=== PATIENT | female | born 1945 | race Caucasian/White ===

== ENCOUNTER 2017-12-21 06:11 | Day surgery (SDC) | payer OTHER ==
--- NOTE | 2017-12-20 13:36 | EKG ---
Test Date: 2017-12-20 Test Time: 13:29:10 Content Checker: KADI MEASUREMENT RESULTS: Intervals: Rate: 75 WI: 180 QRSD: 102 QT: 408 QTc: 455 [place]: P: 49 WI: 180 QRS: 39 T: 109 INTERPRETIVE STATEMENTS: Normal sinus rhythm Left ventricular hypertrophy with repolarization abnormality Abnormal ECG Compared to ECG 07/13/2017 03:46:46 No significant changes Electronically Signed On 12-20-17 13:36:19 CDT by Raúl Gu
[2017-12-20 14:25] LABS: Absolute Lymphocytes (CBC) 2.3 K/uL (0.7-4.9); Absolute Monocytes 0.3 K/uL (0.1-1.3); Absolute Neutrophil 7.6 K/uL (1.8-8.0); Basophils % 0.9 % (0-1.3); Eosinophils % 0.6 % (0-4.4); Hematocrit 43.3 % (36.0-45.0); MCH 31.6 pg (27.0-35.0); MCV 95.2 fL (80-100); MPV 10.3 fL (7.6-11.3); Monocytes % 3.1 % (3.3-12.3); RBC Red Blood Cell Count 4.55 M/uL (3.86-4.86)
--- NOTE | 2017-12-20 14:26 | RAD REPORT ---
EXAM DESCRIPTION: Claudine Martines (2 Views)12/20/2017 1:43 pm CLINICAL HISTORY: Hypertension/coronary artery disease COMPARISON: June 2017 FINDINGS: The lungs appear clear of acute infiltrate. The heart is borderline enlarged IMPRESSION: No acute abnormalities displayed
[2017-12-20 14:36] LABS: Protime INR 0.98
[2017-12-20 14:49] LABS: Potassium 4.1 mEq/L (3.6-5.0)
[2017-12-21] MEDS ORDERED: NA CHLORIDE 0.9% 500 ML ONE (06:35)
[2017-12-21] MEDS ORDERED: HEPA 1000U/500MLS 1,000 UNIT/500 ML BAG IV ONE (06:57)
[2017-12-21] MEDS ORDERED: LIDOCAINE 1% 20 ML MDV ONE (06:57)
[2017-12-21] MEDS ORDERED: MIDAZOLAM HCL 2 MG/2 ML INJ ONE ×2 (07:32→07:38)
[2017-12-21] MEDS ORDERED: FENTANYL CITR 100 MCG/2 ML ONE (07:32)
[2017-12-21] MEDS ORDERED: GUAIFENESIN/DM 5 ML UCUP PO ONE (08:15)
[2017-12-21 09:59] VITALS: O2SAT 94
[2017-12-21 10:00] VITALS: BP 130/62; TEMP 97.6
--- NOTE | 2017-12-21 20:18 | OP ---
Surgeon: Timothy Bob MD Indication: Ms. Gillian Dallas is a 72-year-old woman with documented abdominal aortic aneurysm status post endograft, new diagnosis of the left renal artery stenosis, uncontrolled hypertension, brought i nto the cathode ray tube salvage processor as an outpatient for abdominal angiogram with runoff for possible intervention in th e renal arteries. Description Of Procedure: A 6-Japanese sheath was introduced in the right common femoral artery succes sfully. Angiogram there showed 70% stenosis in the common iliac artery and femoral artery. StarClos e was used to close the case. Abdominal angiogram with runoff with the pigtail showed a patent endog raft, however, the endograft actually was placed across both renal arteries. The patient was noted t o have a small renal artery on the right side. On the left side, she had about an 80% stenosis. Tho se stents are covered stents and there is no access with the wire to the left renal. The patient shakila erated the procedure well. There were no complications. Blood Loss: 5 cc. Total conscious sedation was 30 minutes. Plan: Plan is for medical therapy. She will follow up with me in the office in 2 weeks. Continue h er same medications at home. CONTRERAS/ANGELICA Voice ID: [id number] Report ID: [id number]
== END 2017-12-21 10:12 | disposition home or self-care (01) ==
LOC: CCL 06:11
DX: I70.1 Atherosclerosis of renal artery (principal); I70.201 Unspecified atherosclerosis of native arteries of extremities, right leg; I71.4 Abdominal aortic aneurysm, without rupture; I65.23 Occlusion and stenosis of bilateral carotid arteries; I25.110 Atherosclerotic heart disease of native coronary artery with unstable angina pectoris; E78.6 Lipoprotein deficiency; I12.9 Hypertensive chronic kidney disease with stage 1 through stage 4 chronic kidney disease, or unspecified chronic kidney disease; N18.2 Chronic kidney disease, stage 2 (mild); F17.210 Nicotine dependence, cigarettes, uncomplicated; E78.5 Hyperlipidemia, unspecified; Z98.61 Coronary angioplasty status; Z82.49 Family history of ischemic heart disease and other diseases of the circulatory system
CPT/HCPCS: 36200; 36415; 71046; 75630; 80048; 82962; 85025; 85610; 85730; 93005; C1893; J2250 ×2; J3010; 36252

== ENCOUNTER 2018-01-13 17:06 | Emergency (ER) | payer OTHER ==
--- NOTE | 2018-01-13 18:07 | ER ---
Nurse's Notes [facility] Name: Gillian Dallas Age: 72 yrs Sex: Female : 1945 Arrival Date: 01/13/2018 Time: 17:11 Bed 25 Private MD: Diagnosis: Pneumonia due to other specified bacteria Presentation: 01/13 17:14 Presenting complaint: Patient states: Congestion, cough, fatigue, low grade fever. la1 Transition of care: patient was not received from another setting of care. Onset of symptoms was January 13, 2018. Initial Sepsis Screen: Does the patient meet any 2 criteria? No. Patient's initial sepsis screen is negative. Does the patient have a suspected source of infection? No. Patient's initial sepsis screen is negative. Care prior to arrival: None. 17:14 Method Of Arrival: Ambulatory la1 17:14 Acuity: SHAWN 3 la1 Historical: - Allergies: 17:14 Biaxin; la1 17:14 Ceclor; la1 17:14 Codeine; la1 17:14 Erythromycin; la1 17:14 Macrobid; la1 17:14 PENICILLINS; la1 17:14 Sulfa (Sulfonamide Antibiotics); la1 17:14 Talwin; la1 - PMHx: 17:14 CAD; GERD; High Cholesterol; Hyperlipidemia; Hypertension; Myocardial infarction; la1 Psoriatic Arthritis; Rheumatoid Arthritis; TIA; - Immunization history:: Adult Immunizations up to date. - Social history:: Smoking status: Patient uses tobacco products, smokes one pack cigarettes per day. Screenin:33 Abuse screen: Denies threats or abuse. Denies injuries from another. Nutritional aj1 screening: No deficits noted. Tuberculosis screening: No symptoms or risk factors identified. 18:30 Fall Risk None identified. aj1 Assessment: 17:33 General: Appears in no apparent distress. comfortable, Behavior is calm, cooperative, aj1 appropriate for age. Pain: Complains of pain in left lateral anterior chest and right lateral anterior chest Pain does not radiate. Pain currently is 6 out of 10 on a pain scale. Quality of pain is described as aching, when coughing Is intermittent. Neuro: Level of Consciousness is awake, alert, obeys commands, Oriented to person, place, time, situation, Speech is normal, Facial symmetry appears normal. Cardiovascular: Patient's skin is warm and dry. Respiratory: Reports cough that is productive, Airway is patent Respiratory effort is even, unlabored, Respiratory pattern is regular, symmetrical, Breath sounds are clear bilaterally. GI: No signs and/or symptoms were reported involving the gastrointestinal system. : No signs and/or symptoms were reported regarding the genitourinary system. EENT: Reports nasal congestion nasal discharge sore throat. Derm: No signs and/or symptoms reported regarding the dermatologic system. Skin is pink, warm \T\ dry. normal. Musculoskeletal: No signs and/or symptoms reported regarding the musculoskeletal system. Circulation, motion, and sensation intact. 18:29 Reassessment: Patient appears in no apparent distress at this time. No changes from aj1 previously documented assessment. Patient and/or family updated on plan of care and expected duration. Pain level reassessed. Patient is alert, oriented x 3, equal unlabored respirations, skin warm/dry/pink. Vital Signs: 17:16 BP 116 / 72; Pulse 77; Resp 19; Temp 98.0(TE); Pulse Ox 96% on R/A; Weight 76.66 kg; la1 Height 5 ft. 3 in. (160.02 cm); 18:29 BP 107 / 65; Pulse 75; Resp 18; Pulse Ox 97% on R/A; aj1 17:16 Body Mass Index 29.94 (76.66 kg, 160.02 cm) la1 ED Course: 17:11 Patient arrived in ED. sb2 17:15 Triage completed. la1 17:15 Arm band placed on left wrist. la1 17:18 David Savage PA is PHCP. jr8 17:18 Joseph Ochoa MD is Attending Physician. jr8 17:30 Elizabeth Ferguson, DEMI is Primary Nurse. aj1 17:33 Patient has correct armband on for positive identification. Bed in low position. Call aj1 light in reach. Side rails up X 1. 17:33 No provider procedures requiring assistance completed. aj1 17:46 Patient moved to radiology via wheelchair. bb2 17:46 X-ray completed. Patient tolerated procedure well. bb2 17:47 Patient moved back from radiology. bb2 17:48 XRAY Chest Pa And Lat (2 Views) In Process Unspecified. EDMS 18:30 Patient did not have IV access during this emergency room visit. aj1 Administered Medications: No medications were administered Outcome: 18:07 Discharge ordered by . cely 18:31 Discharged to home ambulatory. aj1 18:31 Condition: good 18:31 Discharge instructions given to patient, Instructed on discharge instructions, follow up and referral plans. medication usage, Demonstrated understanding of instructions, follow-up care, medications, Prescriptions given X 1. 18:31 Patient left the ED. aj1 Signatures: Dispatcher [employer] EDMS Elizabeth Ferguson RN RN aj1 David Savage PA PA jr8 Hernan Mcpherson RN RN la1 Nikia Montgomery bb2 Prerna Lopes sb2
--- NOTE | 2018-01-13 18:07 | EDPHYS ---
Physician Documentation [facility] Name: Gillian Dallas Age: 72 yrs Sex: Female : 1945 Arrival Date: 01/13/2018 Time: 17:11 Bed 25 Private MD: ED Physician Joseph Ochoa HPI: 01/13 17:30 This 72 yrs old Female presents to ER via Ambulatory with complaints of jr8 Fever, Chest Congestion, Weakness. 17:30 The patient reports fever, not measured (subjective). Onset: The symptoms/episode jr8 began/occurred acutely, yesterday. Modifying factors: there are no obvious modifying factors. Associated signs and symptoms: Pertinent positives: cough. Severity of symptoms: At their worst the symptoms were mild in the emergency department the symptoms are unchanged. The patient has not experienced similar symptoms in the past. The patient has not recently seen a physician. Patient stated that she has had cough with chest congestion for the past two days. [place] feverish last night. Denies shortness of breath . Historical: - Allergies: 17:14 Biaxin; la1 17:14 Ceclor; la1 17:14 Codeine; la1 17:14 Erythromycin; la1 17:14 Macrobid; la1 17:14 PENICILLINS; la1 17:14 Sulfa (Sulfonamide Antibiotics); la1 17:14 Talwin; la1 - PMHx: 17:14 CAD; GERD; High Cholesterol; Hyperlipidemia; Hypertension; Myocardial infarction; la1 Psoriatic Arthritis; Rheumatoid Arthritis; TIA; - Immunization history:: Adult Immunizations up to date. - Social history:: Smoking status: Patient uses tobacco products, smokes one pack cigarettes per day. ROS: 17:30 Eyes: Negative for injury, pain, redness, and discharge, ENT: Negative for injury, jr8 pain, and discharge, Neck: Negative for injury, pain, and swelling, Cardiovascular: Negative for chest pain, palpitations, and edema, Abdomen/GI: Negative for abdominal pain, nausea, vomiting, diarrhea, and constipation, Back: Negative for injury and pain, MS/Extremity: Negative for injury and deformity, Skin: Negative for injury, rash, and discoloration, Neuro: Negative for headache, weakness, numbness, tingling, and seizure. 17:30 Respiratory: Positive for cough, with white sputum, Negative for shortness of breath, wheezing. Exam: 17:30 Eyes: Pupils equal round and reactive to light, extra-ocular motions intact. Lids and jr8 lashes normal. Conjunctiva and sclera are non-icteric and not injected. Cornea within normal limits. Periorbital areas with no swelling, redness, or edema. ENT: Nares patent. No nasal discharge, no septal abnormalities noted. Tympanic membranes are normal and external auditory canals are clear. Oropharynx with no redness, swelling, or masses, exudates, or evidence of obstruction, uvula midline. Mucous membranes moist. Neck: Trachea midline, no thyromegaly or masses palpated, and no cervical lymphadenopathy. Supple, full range of motion without nuchal rigidity, or vertebral point tenderness. No Meningismus. Cardiovascular: Regular rate and rhythm with a normal S1 and S2. No gallops, murmurs, or rubs. Normal PMI, no JVD. No pulse deficits. Respiratory: Lungs have equal breath sounds bilaterally, clear to auscultation and percussion. No rales, rhonchi or wheezes noted. No increased work of breathing, no retractions or nasal flaring. Abdomen/GI: Soft, non-tender, with normal bowel sounds. No distension or tympany. No guarding or rebound. No evidence of tenderness throughout. Back: No spinal tenderness. No costovertebral tenderness. Full range of motion. Skin: Warm, dry with normal turgor. Normal color with no rashes, no lesions, and no evidence of cellulitis. MS/ Extremity: Pulses equal, no cyanosis. Neurovascular intact. Full, normal range of motion. Neuro: Awake and alert, GCS 15, oriented to person, place, time, and situation. Cranial nerves II-XII grossly intact. Motor strength 5/5 in all extremities. Sensory grossly intact. Cerebellar exam normal. Normal gait. Vital Signs: 17:16 BP 116 / 72; Pulse 77; Resp 19; Temp 98.0(TE); Pulse Ox 96% on R/A; Weight 76.66 kg; la1 Height 5 ft. 3 in. (160.02 cm); 18:29 BP 107 / 65; Pulse 75; Resp 18; Pulse Ox 97% on R/A; aj1 17:16 Body Mass Index 29.94 (76.66 kg, 160.02 cm) la1 MDM: 17:18 Patient medically screened. jr8 18:06 Data reviewed: vital signs, nurses notes, radiologic studies, plain films, and as a jr8 result, I will discharge patient. Data interpreted: Pulse oximetry: on room air is 96 %. Interpretation: normal. Counseling: I had a detailed discussion with the patient and/or guardian regarding: the historical points, exam findings, and any diagnostic results supporting the discharge/admit diagnosis, radiology results, the need for outpatient follow up, a family practitioner, to return to the emergency department if symptoms worsen or persist or if there are any questions or concerns that arise at home. 01/13 17:26 Order name: XRAY Chest Pa And Lat (2 Views) jr8 Administered Medications: No medications were administered Disposition: 01/13/18 18:07 Discharged to Home. Impression: Pneumonia due to other specified bacteria. - Condition is Stable. - Discharge Instructions: Pneumonia, Adult. - Prescriptions for Doxycycline Monohydrate 100 mg Oral Tablet - take 1 tablet by ORAL route every 12 hours for 10 days; 20 tablet. Albuterol Sulfate 90 mcg/actuation - inhale 1-2 puff by INHALATION route every 4-6 hours; 1 Inhaler. - Medication Reconciliation Form, Thank You Letter, Antibiotic Education, Prescription Opioid Use form. - Follow up: Private Physician; When: 5 - 6 days; Reason: Recheck today's complaints, Continuance of care, Re-evaluation by your physician. - Problem is new. - Symptoms have improved. Addendum: 01/18/2018 22:03 Co-signature as Attending Physician, Joseph Ochoa MD. g s Signatures: Dispatcher [employer] EDCT Elizabeth Ferguson RN RN aj1 David Savage PA PA jr8 Hernan Mcpherson RN RN la1 Joseph Ochoa MD MD gs Corrections: (The following items were deleted from the chart) 01/13 18:31 18:07 01/13/2018 18:07 Discharged to Home. Impression: Pneumonia due to other specified aj1 bacteria. Condition is Stable. Forms are Medication Reconciliation Form, Thank You Letter, Antibiotic Education, Prescription Opioid Use. Follow up: Private Physician; When: 5 - 6 days; Reason: Recheck today's complaints, Continuance of care, Re-evaluation by your physician. Problem is new. Symptoms have improved. jr8
--- NOTE | 2018-01-13 18:33 | RAD REPORT ---
EXAM DESCRIPTION: RAD - Chest Pa And Lat (2 Views) - 01/13/2018 5:50 pm CLINICAL HISTORY: Cough and congestion, fatigue COMPARISON: December 20 TECHNIQUE: PA and lateral views of the chest were obtained. FINDINGS: The lungs are clear of mass, failure or infiltrate. Lung markings are prominent but unchan ged. Prominent costochondral calcifications present. Trachea is midline. Heart size is normal and c entral vasculature is within normal limits. No pleural effusion or pneumothorax seen. No acute bony finding noted. No aortic abnormality. IMPRESSION: No acute cardiopulmonary process. No significant interval change.
[2018-01-13 18:35] VITALS: TEMP 98
[2018-01-13 18:36] VITALS: BP 107/65; O2SAT 97
== END 2018-01-13 18:31 | disposition home or self-care (01) ==
LOC: ER 17:06
DX: J15.8 Pneumonia due to other specified bacteria (principal); I10 Essential (primary) hypertension; F17.210 Nicotine dependence, cigarettes, uncomplicated; I25.2 Old myocardial infarction; Z88.0 Allergy status to penicillin; Z88.1 Allergy status to other antibiotic agents; Z88.2 Allergy status to sulfonamides; Z88.3 Allergy status to other anti-infective agents; Z88.5 Allergy status to narcotic agent; Z88.8 Allergy status to other drugs, medicaments and biological substances
CPT/HCPCS: 71046; 99283

== ENCOUNTER 2018-11-10 23:12 | Observation (INO) | payer OTHER ==
--- OUTSIDE RECORDS SUMMARY | 2018-11-10 23:14 | XMS REPORT ---
:1945 Author Organization [employer] Care Team Providers Name Role Phone Yeimy Montes De Oca Provider Role Unavailable Allergies No Known Allergies Problems Problem Type Condition Code Onset Dates Condition Status Problem Hot flashes due to surgical N95.8 Active menopause Problem Other specified menopausal and N95.8 Active perimenopausal disorders Problem Nicotine dependence F17.200 Active Problem Restless leg syndrome G25.81 Active Problem AAA (abdominal aortic aneurysm) I71.4 Active Problem Hyperlipemia E78.[address] elevation (STEMI) myocardial I21.11 Active infarction involving right coronary artery Problem Chronic obstructive pulmonary J44.9 Active disease, unspecified Problem Hypocalcemia E83.51 Active Problem Arteriosclerotic heart disease I25.10 Active 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
--- OUTSIDE RECORDS SUMMARY | 2018-11-10 23:14 | XMS REPORT ---
[...] Medications Results No Known Results Summary Purpose [employer] Submission
--- OUTSIDE RECORDS SUMMARY | 2018-11-10 23:14 | XMS REPORT ---
:1945 Author Organization [employer] Care Team Providers Name Role Phone Yeimy Montes De Oca Provider Role Unavailable Allergies, Adverse Reactions, Alerts Substance Reaction Event Type codeine nausea and vomiting Drug Allergy ceclor rash Drug Allergy Sulfa rash Drug Allergy PCN rash Drug Allergy Talwin Anxiety Drug Allergy Nitrofurantoin Macrocrystal rash Drug Allergy Erythromycin cold feeling in body; vomiting Drug Allergy Biaxin rash Drug Allergy Problems Problem Type Condition Code Onset Dates [...] Active Problem Arteriosclerotic heart disease I25.10 Active Assessment Pneumonia due to infectious J18.9 Active organism, unspecified laterality, unspecified part of lung Problem 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 Problem Sciatic nerve pain, unspecified M54.30 Active laterality Assessment Cough R05 Active Problem Cigarette smoker F17.210 Active Medications Medication Code Code Instructions Start End Status Dosage System Date Date Albuterol [facility] [address]-99 108 (90 Base) Active 2 puffs as Sulfate HFA MCG/ACT needed Inhalation every 6 hrs Singulair [facility] 22081498659 10 MG Orally Active 1 tablet Once a day in the evening Sinemet [facility] 27670718098 25-100 MG Active TAKE 1 TABLET BY MOUTH TWICE A DAY Plavix ND 33097144889 75 MG Orally Active 1 tablet Once a day Klor-Con M10 [facility] 33531637148 10 MEQ Orally Active 2 tablet daily with food Clonidine HCl [facility] [address]-79 0.1 MG Orally Active 1 tablet Once a day PRN at bedtime Methotrexate [facility] 59829732285 2.5 MG Orally Active 6 tabs on Monday Estradiol [facility] 20483567143 1 MG Active TAKE 1 TABLET BY MOUTH EVERY DAY Aspirin Adult [facility] 76473389340 81 MG Orally Active 1 tablet Low Dose Once a day -8 [facility] 14953044070 0.8 MG Orally Active 1 capsule Once a day Vitamin D3 [facility] 92246255219 2000 UNIT Active 1 capsule Orally Once a day Albuterol [facility] 66845648418 1.25 MG/3ML Active 3 ml as Sulfate Inhalation needed Three times a day Enbrel [facility] 69325221385 50 MG/ML Active 1 ml SureClick Subcutaneous Fenofibrate [facility] 46547687420 160 MG Active TAKE 1 TABLET BY MOUTH EVERY DAY Advair Diskus [facility] 87301403768 250-50 MCG/DOSE Active 1 puff Inhalation Twice a day Lopressor [facility] 74688628736 100 MG Orally Active 1 tablet Twice a day with food Ranexa [facility] 22432993809 500 MG Orally Active 1 tablet once a day Pravastatin [facility] 12014786099 20 MG Active TAKE 1 Sodium TABLET BY MOUTH EVERY DAY Prilosec OTC [facility] 24233217582 20 MG Orally Active 1 tablet Once a day Results No Known Results Summary Purpose [employer]Works Submission
--- OUTSIDE RECORDS SUMMARY | 2018-11-10 23:14 | XMS REPORT ---
:1945 Author Organization [employer]Works Care Team Providers Name Role Phone Yeimy Montes De Oca Provider Role Unavailable Allergies, Adverse Reactions, Alerts Substance Reaction Event Type PCN rash Drug Allergy Talwin Anxiety Drug Allergy Nitrofurantoin Macrocrystal rash Drug Allergy Erythromycin cold feeling in body; vomiting Drug Allergy Biaxin rash Drug Allergy Problems Problem Type Condition Code Onset Dates Condition Status Problem Hypocalcemia E83.51 Active Problem Restless leg syndrome G25.81 Active Problem AAA (abdominal aortic aneurysm) I71.4 Active Problem Drug-induced constipation K59.03 Active Assessment Encounter for screening mammogram Z12.31 Active for malignant neoplasm of breast Problem 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, unspecified stage Problem Benign hypertension I10 Active Problem 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 Problem Hyperlipemia E78.5 Active Problem History of stenosis of renal Z86.79 Active artery Problem Sciatic nerve pain, unspecified M54.30 Active laterality Problem Cigarette smoker F17.210 Active Assessment Encounter for immunization Z23 Active Assessment Encounter for general adult Z00.00 Active medical examination without abnormal findings Problem Other specified menopausal and N95.8 Active perimenopausal disorders Problem Chronic obstructive pulmonary J44.9 Active disease, unspecified Problem Hot flashes due to surgical N95.[address] elevation (STEMI) myocardial I21.11 Active infarction involving right coronary artery Problem Nicotine dependence F17.200 Active Problem Arteriosclerotic heart disease I25.10 Active Medications Medication Code Code Instructions Start End Status Dosage System Date Date Ranexa [facility] 46418213977 500 MG Orally Active 1 tablet once a day Vitamin D3 [facility] 97705405154 2000 UNIT Active 1 capsule Orally Once a day Metoprolol ND 75452426734 100 MG Orally Active 1 tablet Tartrate Twice a day with food Losartan ND 00157397203 100-25 MG Active 1 tablet Potassium-HCTZ Orally Once a day Singulair ND 89317297331 10 MG Orally Active 1 tablet Once a day in the evening Advair Diskus [facility] 63409155361 250-50 MCG/DOSE Active 1 puff Inhalation Twice a day Albuterol [facility] 73445708317 108 (90 Base) Active 2 puffs as Sulfate HFA MCG/ACT needed Inhalation every 6 hrs Klor-Con M10 [facility] 40902881984 10 MEQ Orally Active 2 tablet daily with food Folic Acid [facility] 91661379134 1 MG Orally Active 1 tablet Once a day Enbrel SureClick [facility] 82772601156 50 MG/ML Active 1 ml Subcutaneous Fenofibrate [facility] 40772589219 160 MG Orally Active 1 tablet Once a day with food Klor-Con 10 [facility] 09880875665 10 MEQ Active TAKE 2 TABLETS BY MOUTH DAILY Aspirin Adult [facility] 19563618338 81 MG Orally Active 1 tablet Low Dose Once a day Lopressor [facility] 55869468261 100 MG Orally Active 1 tablet Twice a day with food Estradiol [facility] 02614357907 1 MG Active TAKE 1 TABLET BY MOUTH EVERY DAY Tylenol PM Extra [facility] 93583297561 500-25 MG Active 1 tablet Strength Orally Once a at bedtime day as needed FA-8 [facility] 84924830886 0.8 MG Orally Active 1 capsule Once a day Linzess [facility] 76018065842 145 mcg Active not defined Omeprazole [facility] 63113613168 20 MG Orally Active 1 capsule Once a day Plavix [facility] 89746546900 75 MG Orally Active 1 tablet Once a day Methotrexate [facility] 71525504745 2.5 MG Orally Active 6 tabs on Monday Pravastatin [facility] 75380636416 20 MG Active TAKE 1 Sodium TABLET BY MOUTH EVERY DAY Clonidine HCl [facility] 74973567660 0.1 MG Orally Active 1 tablet Once a day PRN at bedtime Sinemet [facility] 25766357135 25-100 MG Active TAKE 1 TABLET BY MOUTH TWICE A DAY Prilosec OTC [facility] 53056971705 20 MG Orally Active 1 tablet Once a day Results No Known Results Immunizations Vaccine Administration Date PNEUMAVAX May 01, 2018 Summary Purpose [employer]ClinicalWorks Submission
--- OUTSIDE RECORDS SUMMARY | 2018-11-10 23:15 | XMS REPORT ---
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, unspecified stage Problem Stage 3 chronic kidney disease N18.3 Active Problem Arteriosclerotic heart disease I25.[address] elevation (STEMI) myocardial I21.11 Active infarction involving right coronary artery Problem History of stenosis of renal Z86.79 Active artery Problem Benign hypertension I10 Active Problem 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
--- OUTSIDE RECORDS SUMMARY | 2018-11-10 23:15 | XMS REPORT ---
:1945 Author Organization eClinicalWorks Care Team Providers Name Role Phone Yeimy Montes De Oca Provider Role Unavailable Allergies No Known Allergies Problems Problem Type Condition Code Onset Dates Condition Status Problem Other specified menopausal and N95.8 Active perimenopausal disorders Problem ST elevation (STEMI) myocardial I21.11 Active infarction involving right coronary artery Problem Chronic obstructive pulmonary J44.9 Active disease, unspecified Problem COPD exacerbation J44.1 Active Problem Drug-induced constipation K59.03 Active Problem Cough R05 Active Problem Benign hypertension I10 Active Problem Arteriosclerotic heart disease I25.10 Active Problem 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, unspecified stage Problem History of stenosis of renal Z86.79 Active artery Problem AAA (abdominal aortic aneurysm) I71.4 Active Problem Restless leg syndrome G25.81 Active Problem Hypocalcemia E83.51 Active Problem Sciatic nerve pain, unspecified M54.30 Active laterality Problem Cigarette smoker F17.210 Active Problem Hyperlipemia E78.5 Active Problem Hot flashes due to surgical N95.8 Active menopause Problem 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 Problem Nicotine dependence F17.200 Active Medications Medication Code Code Instructions Start End Status Dosage System Date Date Ranexa [facility] 91474739466 500 MG Orally Active 1 tablet once a day Klor-Con M10 [facility] 17791703303 10 MEQ Orally Active 2 tablet daily with food Plavix [facility] 24209363980 75 MG Orally Active 1 tablet Once a day Fenofibrate [facility] 84579913281 160 MG Orally Active 1 tablet Once a day with food Aspirin Adult [facility] 64508026063 81 MG Orally Active 1 tablet Low Dose Once a day Losartan [facility] 89878855656 100-25 MG Active 1 tablet Potassium-HCTZ Orally Once a day Linzess [facility] 71540053056 145 mcg Active not defined Methotrexate [facility] 02252087024 2.5 MG Orally Active 6 tabs on Monday Metoprolol [facility] 68836371661 100 MG Orally Active 1 tablet Tartrate Twice a day with food Sinemet [facility] 17381859603 25-100 MG Active TAKE 1 TABLET BY MOUTH TWICE A DAY Tylenol PM Extra [facility] 14480243887 500-25 MG Active 1 tablet Strength Orally Once a at bedtime day as needed Folic Acid [facility] 97330306046 1 MG Orally Active 1 tablet Once a day Advair Diskus [facility] 09488990753 250-50 MCG/DOSE Jul 24, Active 1 puff Inhalation 2018 Twice a day Pravastatin [facility] 06676205024 20 MG Active TAKE 1 Sodium TABLET BY MOUTH EVERY DAY Enbrel SureClick [facility] 52355204912 50 MG/ML Active 1 ml Subcutaneous Vitamin D3 [facility] 93598945093 2000 UNIT Active 1 capsule Orally Once a day Rosuvastatin [facility] 25523880587 20 MG Orally Active 1 tablet Calcium Once a day Omeprazole [facility] 21846982145 20 MG Orally Active 1 capsule Once a day Estradiol [facility] 72908891057 1 MG Active TAKE 1 TABLET BY MOUTH EVERY DAY Clonidine HCl [facility] 40161861917 0.1 MG Orally Active 1 tablet Once a day PRN at bedtime Levaquin [facility] 71742399915 500 MG Orally Aug 09, Aug 16, Active 1 tablet Once a day 2017 2017 Results No Known Results Summary Purpose eClinicalWorks Submission
--- OUTSIDE RECORDS SUMMARY | 2018-11-10 23:15 | XMS REPORT ---
:1945 Author Organization eClinicalWorks Care Team Providers Name Role Phone Debra Ariza Provider Role Unavailable Allergies, Adverse Reactions, Alerts [...] disease, unspecified Problem COPD exacerbation J44.1 Active Assessment Cough R05 Active Problem Drug-induced constipation K59.03 Active Assessment COPD exacerbation J44.1 Active Problem Cough R05 Active Problem Benign [...] Start End Status Dosage System Date Date Omeprazole ND 92863864168 20 MG Orally Active 1 capsule Once a day Losartan ND 86246457104 100-25 MG Active 1 tablet Potassium-HCTZ Orally Once a day Klor-Con M10 ND 21093101323 10 MEQ Orally Active 2 tablet daily with food Enbrel SureClick [facility] 36486950432 50 MG/ML Active 1 ml Subcutaneous Folic Acid ND 62053750652 1 MG Orally Active 1 tablet Once a day Fenofibrate ND 67546560610 160 MG Orally Active 1 tablet Once a day with food Ranexa NDC 14765463842 500 MG Orally Active 1 tablet once a day Metoprolol [facility] 94590828245 100 MG Orally Active 1 tablet Tartrate Twice a day with food Clonidine HCl [facility] 48942048511 0.1 MG Orally Active 1 tablet Once a day PRN at bedtime Linzess [facility] 97057447697 145 mcg Active not defined Levaquin [facility] 75853833636 500 MG Orally Aug 09, Aug 16, Active 1 tablet Once a day 2017 2017 Estradiol [facility] 00482775686 1 MG Active TAKE 1 TABLET BY MOUTH EVERY DAY Pravastatin [facility] 46515765511 20 MG Active TAKE 1 Sodium TABLET BY MOUTH EVERY DAY Tylenol PM Extra [facility] 06624771660 500-25 MG Active 1 tablet Strength Orally Once a at bedtime day as needed Vitamin D3 [facility] 90738283051 2000 UNIT Active 1 capsule Orally Once a day Sinemet [facility] 57905569721 25-100 MG Active TAKE 1 TABLET BY MOUTH TWICE A DAY Advair Diskus [facility] 90914629837 250-50 MCG/DOSE Jul 24, Active 1 puff Inhalation 2017 Twice a day Plavix [facility] 58362192952 75 MG Orally Active 1 tablet Once a day Methotrexate [facility] 00675874861 2.5 MG Orally Active 6 tabs on Monday Aspirin Adult [facility] 82146640202 81 MG Orally Active 1 tablet Low Dose Once a day Results No Known Results Summary Purpose eClinicalWorks Submission
--- OUTSIDE RECORDS SUMMARY | 2018-11-10 23:15 | XMS REPORT ---
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 Problem Hyperlipemia E78.5 Active Problem History of stenosis of renal Z86.79 Active artery Problem Sciatic nerve pain, unspecified M54.30 Active laterality Problem Cigarette smoker F17.210 Active Problem Other specified menopausal and N95.8 Active perimenopausal disorders Problem Chronic obstructive pulmonary J44.9 Active disease, unspecified Problem Hot flashes due to surgical N95.[address] elevation (STEMI) myocardial I21.11 Active infarction involving right coronary artery Problem Nicotine dependence F17.200 Active Problem Arteriosclerotic heart disease I25.10 Active Medications Medication Code System Code Instructions Start End Date Status Dosage Date Levofloxacin [facility] 37423142789 500 MG Orally May 05, Jun 08, Active 1 tablet Once a day 2017 2017 Results No Known Results Summary Purpose eClinicalWorks Submission
--- OUTSIDE RECORDS SUMMARY | 2018-11-10 23:15 | XMS REPORT ---
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, unspecified stage Assessment Chronic obstructive pulmonary J44.9 Active disease, unspecified Assessment Stage 3 chronic kidney disease N18.3 Active Problem Stage 3 chronic kidney disease N18.3 Active Problem Arteriosclerotic heart disease I25.[address] elevation (STEMI) myocardial I21.11 Active infarction involving right coronary artery Problem History of stenosis of renal Z86.79 Active artery Problem Benign hypertension I10 Active Problem 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 Assessment Restless leg syndrome G25.81 Active Assessment Benign hypertension I10 Active Problem AAA (abdominal aortic aneurysm) I71.4 Active Problem Restless leg syndrome G25.81 Active Problem Sciatic nerve pain, unspecified M54.30 Active laterality Problem Hyperlipemia E78.5 Active Assessment Encounter for immunization Z23 Active Problem Hypocalcemia E83.51 Active Problem Hot flashes due to surgical N95.8 Active menopause Medications Medication Code Code Instructions Start End Status Dosage System Date Date Losartan [facility] 54790779387 100-25 MG Active 1 tablet Potassium-HCTZ Orally Once a day Tylenol PM Extra [facility] 26499554744 500-25 MG Active 1 tablet Strength Orally Once a at bedtime day as needed Vitamin D3 [facility] 00613529979 2000 UNIT Active 1 capsule Orally Once a day Klor-Con 10 [facility] 01146099960 10 MEQ Active TAKE 2 TABLETS BY MOUTH EVERY DAY Methotrexate [facility] 20127158235 2.5 MG Orally Active 6 tabs on Monday Folic Acid [facility] 82060445586 1 MG Orally Active 1 tablet Once a day Rosuvastatin [facility] 45623742661 20 MG Orally Active 1 tablet Calcium Once a day Ranexa [facility] 47195033957 500 MG Orally Active 1 tablet once a day Estradiol [facility] 33929555132 1 MG Active TAKE 1 TABLET BY MOUTH EVERY DAY Advair Diskus [facility] 96026637607 250-50 MCG/DOSE Jul 24, Active 1 puff Inhalation 2017 Twice a day Enbrel SureClick [facility] 38190063824 50 MG/ML Active 1 ml Subcutaneous Clonidine HCl [facility] 18276497822 0.1 MG Orally Active 1 tablet Once a day PRN at bedtime Metoprolol [facility] 33389871377 100 MG Orally Active 1 tablet Tartrate Twice a day with food Linzess [facility] 97591191506 145 mcg Active not defined Plavix [facility] 74174124273 75 MG Orally Active 1 tablet Once a day Sinemet [facility] 01787392535 25-100 MG Active take 1 Orally Three tablet by times a day mouth twice a day Omeprazole [facility] 26119724827 20 MG Orally Active 1 capsule Once a day Klor-Con M10 [facility] 87660099568 10 MEQ Orally Active 2 tablet daily with food Aspirin Adult [facility] 68983728541 81 MG Orally Active 1 tablet Low Dose Once a day Results No Known Results Immunizations Vaccine Administration Date FLUZONE HIGH DOSE OVER 65 October 29, 2018 Summary Purpose eClinicalWorks Submission
--- OUTSIDE RECORDS SUMMARY | 2018-11-10 23:15 | XMS REPORT ---
[...] Active Problem Nicotine dependence F17.200 Active Medications No Known Medications Results No Known Results Summary Purpose eClinicalWorks Submission
--- OUTSIDE RECORDS SUMMARY | 2018-11-10 23:15 | XMS REPORT ---
[...] laterality Problem Cigarette smoker F17.210 Active Assessment Urinary tract infection without N39.0 Active hematuria, site unspecified Problem Other specified menopausal and N95.8 Active perimenopausal disorders Problem Chronic obstructive pulmonary J44.9 Active disease, unspecified Problem Hot flashes due to surgical N95.[address] elevation (STEMI) myocardial I21.11 Active infarction involving right coronary artery Problem Nicotine dependence F17.200 Active Problem Arteriosclerotic heart disease I25.10 Active Medications Medication Code Code Instructions Start End Status Dosage System Date Date Losartan [facility] 70671944137 100-25 MG Active 1 tablet Potassium-HCTZ Orally Once a day Omeprazole ND 98353286450 20 MG Orally Active 1 capsule Once a day Vitamin D3 [facility] 15816524214 2000 UNIT Active 1 capsule Orally Once a day Pravastatin [facility] 31097807953 20 MG Active TAKE 1 Sodium TABLET BY MOUTH EVERY DAY Clonidine HCl ND 07489484177 0.1 MG Orally Active 1 tablet Once a day PRN at bedtime Linzess [facility] 24363140837 145 mcg Active not defined Aspirin Adult [facility] 23281653384 81 MG Orally Active 1 tablet Low Dose Once a day Ranexa NDC 89738311536 500 MG Orally Active 1 tablet once a day Klor-Con 10 [facility] 02979701014 10 MEQ Active TAKE 2 TABLETS BY MOUTH DAILY Fenofibrate [facility] 51410827765 160 MG Orally Active 1 tablet Once a day with food Klor-Con M10 [facility] 90228713348 10 MEQ Orally Active 2 tablet daily with food Plavix [facility] 58013045838 75 MG Orally Active 1 tablet Once a day Folic Acid [facility] 86497734784 1 MG Orally Active 1 tablet Once a day Metoprolol [facility] 46761098944 100 MG Orally Active 1 tablet Tartrate Twice a day with food Enbrel SureClick [facility] 64813661075 50 MG/ML Active 1 ml Subcutaneous Sinemet [facility] 78685153163 25-100 MG Active TAKE 1 TABLET BY MOUTH TWICE A DAY Estradiol [facility] 34692448365 1 MG Active TAKE 1 TABLET BY MOUTH EVERY DAY Tylenol PM Extra [facility] 97301395136 500-25 MG Active 1 tablet Strength Orally Once a at bedtime day as needed Methotrexate [facility] 93872850418 2.5 MG Orally Active 6 tabs on Monday Results No Known Results Summary Purpose eClinicalWorks Submission
--- NOTE | 2018-11-11 | ER ---
Nurse's Notes [facility] Name: Gillian Dallas Age: 73 yrs Sex: Female : 1945 Arrival Date: 11/10/2018 Time: 23:14 Bed 7 Private MD: Gwen Montes De Oca Diagnosis: Chest pain, unspecified Presentation: 11/10 23:37 Presenting complaint: Patient states: "I am having chest pain that started about an jd3 hour ago that goes down through my left shoulder and arm.". Transition of care: patient was not received from another setting of care. Onset of symptoms was November 10, 2018. Risk Assessment: Do you want to hurt yourself or someone else? Patient reports no desire to harm self or others. Initial Sepsis Screen: Does the patient meet any 2 criteria? No. Patient's initial sepsis screen is negative. Does the patient have a suspected source of infection? No. Patient's initial sepsis screen is negative. Care prior to arrival: None. 23:37 Method Of Arrival: Wheelchair jd3 23:37 Acuity: SHAWN 3 jd3 Historical: - Allergies: 23:45 PENICILLINS; jd3 23:45 Biaxin; jd3 23:45 Ceclor; jd3 23:45 Codeine; jd3 23:45 Erythromycin; jd3 23:45 Macrobid; jd3 23:45 Sulfa (Sulfonamide Antibiotics); jd3 23:45 Talwin; jd3 23:45 Bactrim; jd3 - Home Meds: 23:45 aspirin 81 mg Oral TbEC 1 tab once daily [Active]; clopidogrel 75 mg Oral tab 1 tab jd3 once daily [Active]; Enbrel 50 mg/mL (0.98 mL) subcutaneous syrg 1 mL once wkly [Active]; estradiol 1 mg Oral tab 1 tab once daily [Active]; fenofibrate 160 mg Oral tab 1 tab once daily [Active]; folic acid 1 mg Oral tab 1 tab once daily [Active]; metoprolol tartrate 100 mg Oral tab 1 tab 2 times per day [Active]; omeprazole 20 mg Oral cpDR 1 cap once daily [Active]; potassium chloride 10 mEq Oral cpER 1 cap once daily [Active]; pravastatin 20 mg Oral tab 1 tab once daily [Active]; Ranexa 500 mg Oral Tb12 1 tab daily [Active]; Vitamin D Oral 2000 unit daily [Active]; - PMHx: 23:45 CAD; GERD; High Cholesterol; Hyperlipidemia; Hypertension; Myocardial infarction; jd3 Psoriatic Arthritis; Rheumatoid Arthritis; TIA; - Immunization history:: Adult Immunizations up to date. - Social history:: Smoking status: Patient uses tobacco products, smokes 0.25 packs per day. - Ebola Screening: : Patient negative for fever greater than or equal to 101.5 degrees Fahrenheit, and additional compatible Ebola Virus Disease symptoms. Screenin:49 Abuse screen: Denies threats or abuse. Nutritional screening: No deficits noted. jd3 Tuberculosis screening: No symptoms or risk factors identified. Fall Risk Ambulatory Aid- None/Bed Rest/Nurse Assist (0 pts). Gait- Normal/Bed Rest/Wheelchair (0 pts) Mental Status- Oriented to own ability (0 pts). Total Smalls Fall Scale indicates No Risk (0-24 pts). Assessment: 23:47 General: Appears in no apparent distress. uncomfortable, Behavior is calm, cooperative, jd3 appropriate for age. Pain: Complains of pain in chest Pain radiates to left arm Quality of pain is described as aching, Pain began 1 hour ago. Neuro: Level of Consciousness is awake, alert, obeys commands, Oriented to person, place, time, situation, Appropriate for age. Cardiovascular: Heart tones S1 S2 present Capillary refill < 3 seconds Patient's skin is warm and dry. Rhythm is regular. Respiratory: Airway is patent Respiratory effort is even, unlabored, Respiratory pattern is regular, symmetrical, Breath sounds are clear bilaterally. GI: No signs and/or symptoms were reported involving the gastrointestinal system. : No signs and/or symptoms were reported regarding the genitourinary system. EENT: No signs and/or symptoms were reported regarding the EENT system. Derm: Skin is intact, Skin is dry, Skin is normal, Skin temperature is warm. Musculoskeletal: Circulation, motion, and sensation intact. Range of motion: intact in all extremities. 11/11 00:48 Reassessment: Patient appears in no apparent distress at this time. Patient and/or jd3 family updated on plan of care and expected duration. Pain level reassessed. Patient is alert, oriented x 3, equal unlabored respirations, skin warm/dry/pink. 01:51 Reassessment: Patient appears in no apparent distress at this time. Patient and/or jd3 family updated on plan of care and expected duration. Pain level reassessed. Patient is alert, oriented x 3, equal unlabored respirations, skin warm/dry/pink. Vital Signs: 11/10 23:46 BP 144 / 61; Pulse 75; Resp 17 S; Temp 97.8(O); Pulse Ox 97% on R/A; Weight 73.94 kg jd3 (R); Height 5 ft. 3 in. (160.02 cm) (R); Pain 2/10; 11/11 00:49 BP 127 / 70; Pulse 72; Resp 18 S; Pulse Ox 98% on R/A; jd3 01:51 BP 105 / 63; Pulse 67; Resp 17 S; Pulse Ox 100% on R/A; jd3 11/10 23:46 Body Mass Index 28.87 (73.94 kg, 160.02 cm) jd3 ED Course: 11/10 23:14 Patient arrived in ED. am2 23:14 Gwen Montes De Oca FNP-C is Private Physician. am2 23:26 Christian Coto, RN is Primary Nurse. jd3 23:38 Werner Pascual MD is Attending Physician. ps1 23:39 Triage completed. jd3 23:47 Arm band placed on. EKG completed in triage. Results shown to MD. jd3 23:50 Patient has correct armband on for positive identification. Placed in gown. Bed in low jd3 position. Call light in reach. Side rails up X 1. Adult w/ patient. account support specialist on. Pulse ox on. NIBP on. 23:50 Patient maintains SpO2 saturation greater than 95% on room air. jd3 23:59 John Meredith MD is Hospitalizing Provider. ps1 11/11 00:25 Inserted saline lock: 20 gauge in right antecubital area, using aseptic technique. jd3 Blood collected. 00:31 X-ray completed. Portable x-ray completed in exam room. Patient tolerated procedure sg4 well. 00:33 XRAY Chest (1 view) In Process Unspecified. EDMS Administered Medications: No medications were administered Outcome: 11/10 23:59 Decision to Hospitalize by Provider. ps1 11/11 02:45 Patient left the ED. jd3 Signatures: Dispatcher [employer] EDMS Mary Jane Joseph am2 Christian Coto, DEMI RN jd3 Werner Pascual MD MD ps1 Margarita Esparza 4
--- NOTE | 2018-11-11 00:01 | EDPHYS ---
Physician Documentation [facility] Name: Gillian Dallas Age: 73 yrs Sex: Female : 1945 Arrival Date: 11/10/2018 Time: 23:14 Bed 7 Private MD: Gwen Montes De Oca ED Physician Werner Pascual HPI: 11/11 01:32 This 73 yrs old Female presents to ER via Wheelchair with complaints of Chest ps1 Pain > 30 y/o, High Blood Pressure. 01:32 states that she had elevated BP at home 180 systolic took a 0.1 clonidine and symptoms ps1 of chest pain improved. Patient of Dr. Bob and supposed to have a stress test on Monday. Still has persistent chest pain. Hx of 3 stents and endarterectomy. Pain decribed as pressure. Rated as moderate. Remitted with clonidine. Historical: - Allergies: 11/10 23:45 PENICILLINS; jd3 23:45 Biaxin; jd3 23:45 Ceclor; jd3 23:45 Codeine; jd3 23:45 Erythromycin; jd3 23:45 Macrobid; jd3 23:45 Sulfa (Sulfonamide Antibiotics); jd3 23:45 Talwin; jd3 23:45 Bactrim; jd3 - Home Meds: 23:45 aspirin 81 mg Oral TbEC 1 tab once daily [Active]; clopidogrel 75 mg Oral tab 1 tab jd3 once daily [Active]; Enbrel 50 mg/mL (0.98 mL) subcutaneous syrg 1 mL once wkly [Active]; estradiol 1 mg Oral tab 1 tab once daily [Active]; fenofibrate 160 mg Oral tab 1 tab once daily [Active]; folic acid 1 mg Oral tab 1 tab once daily [Active]; metoprolol tartrate 100 mg Oral tab 1 tab 2 times per day [Active]; omeprazole 20 mg Oral cpDR 1 cap once daily [Active]; potassium chloride 10 mEq Oral cpER 1 cap once daily [Active]; pravastatin 20 mg Oral tab 1 tab once daily [Active]; Ranexa 500 mg Oral Tb12 1 tab daily [Active]; Vitamin D Oral 2000 unit daily [Active]; - PMHx: 23:45 CAD; GERD; High Cholesterol; Hyperlipidemia; Hypertension; Myocardial infarction; jd3 Psoriatic Arthritis; Rheumatoid Arthritis; TIA; - Immunization history:: Adult Immunizations up to date. - Social history:: Smoking status: Patient uses tobacco products, smokes 0.25 packs per day. - Ebola Screening: : Patient negative for fever greater than or equal to 101.5 degrees Fahrenheit, and additional compatible Ebola Virus Disease symptoms. ROS: 11/11 01:32 Constitutional: Negative for fever, chills, and weight loss, Eyes: Negative for injury, ps1 pain, redness, and discharge, Respiratory: Negative for shortness of breath, cough, wheezing, and pleuritic chest pain, Abdomen/GI: Negative for abdominal pain, nausea, vomiting, diarrhea, and constipation, MS/Extremity: Negative for injury and deformity, Skin: Negative for injury, rash, and discoloration, Neuro: Negative for headache, weakness, numbness, tingling, and seizure, Psych: Negative for depression, anxiety, suicide ideation, homicidal ideation, and hallucinations. Cardiovascular: Positive for chest pain. Exam: 01:32 Constitutional: This is a well developed, well nourished patient who is awake, alert, ps1 and in no acute distress. Head/Face: Normocephalic, atraumatic. Eyes: Pupils equal round and reactive to light, extra-ocular motions intact. Lids and lashes normal. Conjunctiva and sclera are non-icteric and not injected. ENT: Nares patent. No nasal discharge, no septal abnormalities noted. Tympanic membranes are normal and external auditory canals are clear. Oropharynx with no redness, swelling, or masses, exudates, or evidence of obstruction, uvula midline. Mucous membranes moist. Chest/axilla: Normal chest wall appearance and motion. Nontender with no deformity. No lesions are appreciated. Cardiovascular: Regular rate and rhythm. No gallops, murmurs, or rubs. Normal PMI, no JVD. No pulse deficits. Respiratory: Lungs have equal breath sounds bilaterally, clear to auscultation and percussion. No rales, rhonchi or wheezes noted. No increased work of breathing, no retractions or nasal flaring. Abdomen/GI: Soft, non-tender, with normal bowel sounds. No distension or tympany. No guarding or rebound. No evidence of tenderness throughout. MS/ Extremity: Pulses equal, no cyanosis. Neurovascular intact. Full, normal range of motion. Neuro: Awake and alert, GCS 15, oriented to person, place, time, and situation. Cranial nerves II-XII grossly intact. Sensory grossly intact. Psych: Awake, alert, with orientation to person, place and time. Behavior, mood, and affect are within normal limits. Vital Signs: 11/10 23:46 BP 144 / 61; Pulse 75; Resp 17 S; Temp 97.8(O); Pulse Ox 97% on R/A; Weight 73.94 kg jd3 (R); Height 5 ft. 3 in. (160.02 cm) (R); Pain /; 11/11 00:49 BP 127 / 70; Pulse 72; Resp 18 S; Pulse Ox 98% on R/A; jd3 01:51 BP 105 / 63; Pulse 67; Resp 17 S; Pulse Ox 100% on R/A; jd3 11/10 23:46 Body Mass Index 28.87 (73.94 kg, 160.02 cm) jd3 MDM: 11/10 23:54 Patient medically screened. ps1 11/11 01:37 Data reviewed: vital signs, nurses notes, and as a result, I will admit patient. ps1 11/11 00:00 Order name: CBC with Diff; Complete Time: : ps1 11/11 00:00 Order name: LFT's; Complete Time: :38 ps1 11/11 00:00 Order name: Magnesium; Complete Time: 01:38 ps1 11/11 00:00 Order name: NT PRO-BNP; Complete Time: 01:38 ps1 11/11 00:00 Order name: PT-INR; Complete Time: : ps1 11/11 00:00 Order name: Troponin (emerg Dept Use Only); Complete Time: 01:38 ps1 11/11 00:00 Order name: CMP; Complete Time: 01:38 ps1 11/11 01:25 Order name: Basic Metabolic Panel EDMS 11/11 01:25 Order name: Basic Metabolic Panel EDMS 11/11 01:25 Order name: CBC with Automated Diff EDMS 11/11 01:25 Order name: CBC with Automated Diff EDMS 11/11 01:25 Order name: Lipid Profile EDMS 11/11 01:25 Order name: Lipid Profile EDMS 11/11 01:25 Order name: Troponin I EDMS 11/11 00:00 Order name: XRAY Chest (1 view) ps1 11/11 00:00 Order name: EKG; Complete Time: 00:02 [facility] 11/11 00:00 Order name: Cardiac monitoring; Complete Time: 00:18 [facility] 11/11 00:00 Order name: EKG - Nurse/Tech; Complete Time: 00:18 [facility] 11/11 00:00 Order name: IV Saline Lock; Complete Time: 00: [facility] 11/11 00:00 Order name: Labs collected and sent; Complete Time: 00: [facility] 11/11 00:00 Order name: O2 Per Protocol; Complete Time: 00: [facility] 11/11 00:00 Order name: O2 Sat Monitoring; Complete Time: 00: [facility] 11/11 01:25 Order name: CONS Physician Consult [facility] 11/11 01:25 Order name: Heart Healthy [facility] 11/11 01:25 Order name: Echo with Doppler [facility] 11/11 01:25 Order name: EKG Electrocardiogram [facility] 11/11 01:25 Order name: EKG Electrocardiogram [facility] 11/11 01:25 Order name: Troponin I [facility] 11/11 01:25 Order name: Troponin I [facility] EC:32 Rate is 79 beats/min. Rhythm is regular. Right axis deviation noted. TX interval is ps1 normal. QRS interval is normal. QT interval is normal. No Q waves. T waves are Normal. No ST changes noted. Clinical impression: RAD, NSR, non-specific T wave abnormality. Administered Medications: No medications were administered Disposition: 11/10/18 23:59 Hospitalization ordered by John Meredith for Observation. Preliminary diagnosis is Chest pain, unspecified. - Bed requested for Telemetry/MedSurg (observation). - Status is Observation. jd3 - Condition is Stable. - Problem is new. - Symptoms are unchanged. UTI on Admission? No Signatures: Dispatcher [employer] [facility] Janneth Joseph RN RN mw Davies, Jonathon, RN RN jWerner Marin MD MD ps1 Corrections: (The following items were deleted from the chart) 01:49 11/10 23:59 Hospitalization Ordered by John Meredith MD for Observation. Preliminary mw diagnosis is Chest pain, unspecified. Bed requested for Telemetry/MedSurg (observation). Status is Observation. Condition is Stable. Problem is new. Symptoms are unchanged. UTI on Admission? No. ps1 11/11 02:45 01:49 11/10/2018 23:59 Hospitalization Ordered by John Meredith MD for Observation. jd3 Preliminary diagnosis is Chest pain, unspecified. Bed requested for Telemetry/MedSurg (observation). Status is Observation. Condition is Stable. Problem is new. Symptoms are unchanged. UTI on Admission? No. mw
[2018-11-11 01:09] LABS: Protime INR 0.96
[2018-11-11 01:12] LABS: Absolute Lymphocytes (CBC) 3.4 K/uL (0.7-4.9); Absolute Neutrophil 3.5 K/uL (1.8-8.0); Basophils % 0.4 % (0-1.3); Eosinophils % 1.6 % (0-4.4); Hematocrit 38.5 % (36.0-45.0); Lymphocytes % 41.9 % (15.3-44.8); MPV 10.6 fL (7.6-11.3); Monocytes % 12.1 % (3.3-12.3); RBC Red Blood Cell Count 4.11 M/uL (3.86-4.86)
[2018-11-11] MEDS ORDERED: ALPRAZOLAM 0.25 MG TABLET PO PRN (01:20)
[2018-11-11] MEDS ORDERED: MORPHINE 4 MG/ML SYR IV PRN (01:20)
[2018-11-11] MEDS ORDERED: ACETAMINOPHEN 500 MG TAB PO PRN (01:20)
[2018-11-11 01:29] LABS: ALT/SGPT 24 U/L (12-78); AST/SGOT 18 U/L (15-37); Albumin 3.6 g/dL (3.4-5.0); Alkaline Phosphatase 48 U/L (45-117); BUN Blood Urea Nitrogen 31 mg/dL (7-18); Bicarbonate 30 mmol/L (21-32); Bilirubin Direct 0.1 mg/dL (0-0.2); Bilirubin Total 0.3 mg/dL (0.2-1.0); Glucose Level 102 mg/dL (74-106); Magnesium 1.8 mg/dL (1.8-2.4); NT PRO-BNP 580 pg/mL (<125); Potassium 3.9 mmol/L (3.5-5.1); Sodium Level 144 mmol/L (136-145); Troponin (Emerg Dept Use Only) < 0.02 ng/mL (0.0-0.045)
[2018-11-11 02:59] VITALS: BMI 29.0
[2018-11-11] MEDS ORDERED: TEMAZEPAM 15 MG CAP PO PRN (03:36)
[2018-11-11 08:42] LABS: Urine Appearance CLEAR; Urine Bilirubin NEGATIVE (NEG); Urine Blood NEGATIVE (NEG); Urine Color YELLOW; Urine Glucose NEGATIVE (NEG); Urine Protein NEGATIVE (NEG); Urine Urobilinogen 0.2 mg/dL (0.2-1.0); Urine pH 6.5 (5.0-7.0)
[2018-11-11 08:46] LABS: Urine Microscopic Reflex NO UMIC
[2018-11-11] MEDS ORDERED: ENOXAPARIN 40 MG/0.4 ML SQ SCH (09:00)
[2018-11-11] MEDS ORDERED: ASPIRIN EC 81 MG TAB PO SCH (09:00)
[2018-11-11] MEDS ORDERED: METOPROLOL TAR 50 MG TAB PO SCH ×2 (09:00→21:00)
--- NOTE | 2018-11-11 09:02 | RAD REPORT ---
EXAM DESCRIPTION: Claudine Single View11/11/2018 12:34 am CLINICAL HISTORY: Chest pain COMPARISON: December 2017 FINDINGS: The lungs appear clear of acute infiltrate. The heart is normal size IMPRESSION: No acute abnormalities displayed
[2018-11-11] MEDS ORDERED: CLONIDINE HCL 0.1 MG PO PRN (10:46)
[2018-11-11 11:25] VITALS: O2SAT 94
[2018-11-11 11:38] VITALS: BP 135/61
--- NOTE | 2018-11-11 12:25 | EKG ---
Test Date: 2018-11-10 Test Time: 23:26:39 Hand Knitter: GUY MEASUREMENT RESULTS: Intervals: Rate: 79 CA: 162 QRSD: 96 QT: 386 QTc: 442 Raphine: P: 103 CA: 162 QRS: 116 T: 141 INTERPRETIVE STATEMENTS: Suspect arm lead reversal, interpretation assumes no reversal Normal sinus rhythm Right axis deviation Pulmonary disease pattern ST abnormality, possible digitalis effect Abnormal ECG Compared to ECG 12/20/2017 13:29:10 Right-axis deviation now present ST (T wave) deviation now present Left ventricular hypertrophy no longer present Early repolarization no longer present Electronically Signed On 11-11-18 12:24:15 CDT by Timothy Bob
[2018-11-11 12:35] VITALS: TEMP 97.4
--- NOTE | 2018-11-11 13:42 | P.HP ---
Certification for Inpatient Patient admitted to: Observation With expected LOS: <2 Midnights Patient will require the following post-hospital care: None Practitioner: I am a practitioner with admitting privileges, knowledge of patient current condition, hospital course, and medical plan of care. Services: Services provided to patient in accordance with Admission requirements found in Title 42 Section 412.3 of the Code of Federal Regulations Patient History Date of Service: 11/11/18 Reason for admission: chest pain rule out acute coronary syndrome History of Present Illness: patient is a 73-year-old female who came to the hospital with chest discomfort. Pain was in the sternal region and radiated to her left side. She has been having pain on and off for the last 2 weeks. It got progressively worse to where she has got short of breath, and diaphoretic. She has had multiple cardiac issues including coronary artery disease with 2 stents placed. She has also had abdominal aortic aneurysm stent placed. This was done at our facility many years ago. She has been following up with Dr. Bob as an outpatient and she was scheduled to have a stress test because of her chest pain. This was scheduled for MondayNovember 12. However, she developed this severe chest pain so she came to our hospital for evaluation. Will go ahead and consult cardiology and get their recommendations. Proceed per Cardiology recommendations at this time. Allergies cefaclor [From Ceclor] Allergy (Verified 11/11/18 03:01) Nausea/Vomiting clarithromycin [From Biaxin] Allergy (Verified 11/11/18 03:01) Rash codeine Allergy (Verified 11/11/18 03:01) Nausea/Vomiting erythromycin base [Erythromycin Base] Allergy (Verified 11/11/18 03:01) Nausea/Vomiting nitrofurantoin [From Macrobid] Allergy (Verified 11/11/18 03:01) Rash nitrofurantoin macrocrystal [From Macrobid] Allergy (Verified 11/11/18 03:01) Rash Penicillins Allergy (Verified 11/11/18 03:01) Rash pentazocine lactate [From Talwin] Allergy (Verified 11/11/18 03:01) Rash Sulfa (Sulfonamide Antibiotics) Allergy (Verified 11/11/18 03:01) Nausea/Vomiting sulfamethoxazole [From Bactrim] Allergy (Verified 11/11/18 03:01) Rash trimethoprim [From Bactrim] Allergy (Verified 11/11/18 03:01) Rash tape Allergy (Intermediate, Uncoded 11/11/18 03:01) Hives/Rash Home Medications: Acetaminophen/Diphenhydramine [Pain Relief Pm Caplet] 2 tab PO BEDTIME 11/11/18 Aspirin 81 mg PO DAILY 11/11/18 Carbidopa/Levodopa [Carbidopa-Levodopa 25-100 Tab] 1 tab PO TID 11/11/18 Cholecalciferol (Vitamin D3) [Vitamin D3] 1,000 iu PO DAILY 11/11/18 Clonidine HCl [Clonidine HCl ER] 0.1 mg PO DAILYPRN PRN 11/11/18 Clopidogrel Bisulfate [Plavix*] 75 mg PO DAILY 11/11/18 Estradiol [Estrace] 1 mg PO DAILY 11/11/18 Fenofibrate 160 mg PO DAILY 11/11/18 Folic Acid 1 mg PO DAILY 11/11/18 Losartan/Hydrochlorothiazide [Losartan-Hctz 100-25 mg Tab] 1 tab PO DAILY Metoprolol Tartrate 100 mg PO BID 11/11/18 Omeprazole 20 mg PO DAILY 11/11/18 Potassium Chloride [Klor-Con 10] 10 meq PO BID 11/11/18 Pravastatin Sodium 20 mg PO DAILY 11/11/18 Ranolazine [Ranexa] 500 mg PO DAILY 11/11/18 - Past Medical/Surgical History Has patient received pneumonia vaccine in the past: Yes Diabetic: No -: OK -: Abdominal Aortic Aneurysm -: Pulmonary Embolisim -: Psoriatic Arthritis -: TIA -: Coronary Stents x2 -: Appendectomy -: Left Carotid Endarderectomy -: Tonsillectomy -: Hysterectomy -: A/P repair -: AAA REPAIR-FEW WEEKS AGO - Family History Father Medical History: Heart disease, Hypertension Mother Medical History: Hypertension - Social History Smoking Status: Current some day smoker Alcohol use: No CD- Drugs: No Caffeine use: No Place of Residence: Home Review of Systems 10-point ROS is otherwise unremarkable Physical Examination - Vital Signs Temperature: 97.4 F Blood Pressure: 135/61 Pulse: 73 Respirations: 16 Pulse Ox (%): 98 - Physical Exam General: Alert, In no apparent distress, Oriented x3 HEENT: Atraumatic, PERRLA, Mucous membr. moist/pink, EOMI, Sclerae nonicteric Neck: Supple, 2+ carotid pulse no bruit, No LAD, Without JVD or thyroid abnormality Respiratory: Clear to auscultation bilaterally, Normal air movement Cardiovascular: Regular rate/rhythm, Normal S1 S2, Systolic murmur Gastrointestinal: Normal bowel sounds, Soft and benign, Non-distended, No tenderness Musculoskeletal: No tenderness Integumentary: No rashes Neurological: Normal gait, Normal speech, Normal strength at 5/5 x4 extr, Normal tone, Normal affect Lymphatics: No axilla or inguinal lymphadenopathy - Studies Laboratory Data (last 24 hrs) 11/11/18 00:28: PT 11.4, INR 0.96 11/11/18 00:28: Sodium 144, Potassium 3.9, BUN 31 H, Creatinine 1.37 H, Glucose 102, Magnesium 1.8, Total Bilirubin 0.3, AST 18, ALT 24, Alkaline Phosphatase 48 11/11/18 00:28: WBC 8.0, Hgb 12.8, Hct 38.5, Plt Count 175 Assessment & Plan - Problems (Diagnosis) (1) Chest pain, rule out acute myocardial infarction Status: Acute (2) History of endovascular stent graft for abdominal aortic aneurysm (AAA) Status: Acute (3) Presence of stent in coronary artery in patient with coronary artery disease Status: Acute (4) AAA (abdominal aortic aneurysm) Onset Date: 09/24/14 Status: Acute (5) CAD (coronary artery disease) Onset Date: 09/24/14 Status: Acute Qualifiers: Coronary Disease-Associated Artery/Lesion type: [place] artery [place] vs. transplanted heart: [place] heart Associated angina: without angina Qualified Code(s): I25.10 - Atherosclerotic heart disease of [place] coronary artery without angina pectoris (6) PVD (peripheral vascular disease) Onset Date: 09/24/14 Status: Acute - Plan 1. Serial troponins and EKG 2. Cardiology consultation 3. Echocardiogram and inpatient stress test(pending cardiology evaluation) 4. Anti-platelet therapy, anti coagulation, beta-sissy, statin, and O2 as needed 5. IV morphine for pain 6. Nitro p.r.n. Discharge Plan: Home Plan to discharge in: 48 Hours - Advance Directives Does patient have a Living Will: No Does patient have a Durable POA for Healthcare: No - Code Status/Comfort Care Code Status Assessed: Yes Code Status: Full Code Critical Care: No Time Spent Managing PTS Care (In Minutes): 45
--- NOTE | 2018-11-11 13:49 | CON ---
Date of Consultation: 11/11/2018 Reason For Consultation: Chest pain and hypertension. History Of Present Illness: Ms. Dallas is a 73-year-old white woman. She is very well known to me fr om previous office visits and hospital admissions. She has a history of hypertension. She has a his tory of coronary artery disease. She is status post LAD stent and has a known 100% RCA occlusion. S he has a history of dyslipidemia. She has a history of abdominal aortic aneurysm, status post endogr aft. She also has a history of bilateral renal artery stenosis and needs the endograft of the abdomi nal aorta, inaccessible for angioplasty or stent. She came into the hospital with blood pressure abo ut 180 systolic and some chest pressure that radiated to the back with some diaphoresis, but no nause a, vomiting, shortness of breath, PND, orthopnea, pedal edema, palpitations, or syncope. She has alr konstantin ruled out for an CO. Her BNP was 580. Her troponin was negative. CPKs and MBs were negative. Her creatinine was 1.37. EKG was unremarkable. Chest x-ray was unremarkable. Past Medical History: Negative. Allergies: SHE IS ALLERGIC TO CEFACLOR, CLARITHROMYCIN, ERYTHROMYCIN, CODEINE, AND PENICILLIN. Review of Systems: Negative. Social History: Positive for tobacco. She is down to 5 cigarettes a day. No alcohol. Family History: Positive for heart disease. Medications: At home include aspirin, Plavix, fenofibrate, losartan, and metoprolol. Physical Examination: General: She was in no acute distress. Vital Signs: Stable. She was afebrile. She was in sinus rhythm. Blood pressure is much better con trolled now. HEENT: Negative. Neck: Supple without any bruit, lymphadenopathy, JVD, or thyromegaly. Chest: Clear to auscultation and percussion. Cardiac: Regular rhythm and rate. No murmurs, gallops, or rubs. Abdomen: Benign. Extremities: No clubbing, cyanosis, or edema. Pulses were present distally bilaterally. Neurologic: She was nonfocal. Skin: Dry and intact. Diagnostic Data: As stated earlier. Last catheterization in 2015 showed 100% RCA, 50% LAD, normal c ircumflex. Abdominal angiogram with run-off in November 2017 showed patent endograft, however, the sten t extended beyond the renal and she had bilateral renal artery stenosis, not accessible for any inter vention. Impression And Plan: 1.Chest pain, certainly could be coronary artery disease related or hypertension. The patient state d that she took a clonidine and after her blood pressure abated, her symptoms went away. I recommend ed she continue her present medical regimen at home including aspirin, Plavix, losartan, and metoprol ol. I recommend that she takes clonidine as needed, increase the metoprolol as needed if she has korina st pain. She has a stress test scheduled in my office tomorrow morning and since she is ruled out, I feel comfortable with her going home and go through the stress test and we will decide on angiograph y after that. I am trying to avoid an angiogram considering her creatinine, but if her stress test i s positive, we may have to do that anyway. 2.Hypertension, poorly controlled. 3.Status post abdominal aortic aneurysm with endograft. 4.Renal artery stenosis, bilateral. 5.Coronary artery disease, status post left anterior descending artery stent in the past, 100% right coronary artery, normal circumflex, 50% left anterior descending artery in 2016. 6.Dyslipidemia, which is well controlled. CONTRERAS/ANGELICA Voice ID: [id number] Report ID: [id number]
[2018-11-11] MEDS ORDERED: CARBIDOPA/LEVODOPA 25/100 TAB PO SCH (14:00)
[2018-11-11] MEDS ORDERED: DIPHENHYDRAMINE PO SCH (21:00)
[2018-11-11] MEDS ORDERED: POTASSIUM CL SA 10 MEQ TAB PO SCH (21:00)
[2018-11-11] MEDS ORDERED: ACETAMINOPHEN PO SCH (21:00)
[2018-11-11] MEDS ORDERED: ATORVASTATIN 10 MG TAB PO SCH (21:00)
--- NOTE | 2018-11-12 03:27 | DS ---
Date of Discharge: 11/11/2018 Consultants: Dr. Bob with Cardiology. Procedures: None. Discharge Diagnoses: 1.Unstable angina, acute coronary syndrome ruled out. 2.Coronary artery disease [place] artery and [place] heart, status post stents with angina. Stable. 3.Chronic kidney disease stage 3, stable. 4.Dyslipidemia. 5.Hypertensive emergency. The patient had uncontrolled blood pressure in the 180s with chest pain. Blood pressure improved with p.o. medications. 6.Gastroesophageal reflux disease. Continue PPI. 7.Psoriatic arthritis. 8.Rheumatoid arthritis. 9.History of transient ischemic attack. 10.History of previous myocardial infarction. Hospital Course: The patient is a 73-year-old female, comes in with elevated blood pressure in the 1 80s with the resultant chest pain. The patient was admitted to the hospital for further evaluation. Her blood pressure improved with treatment. She was seen by Cardiology who recommended discharge af ter the blood pressure is improved as she is scheduled for a stress test early next week. The patien t's chest pain resolved. Her cardiac enzymes were negative. ACS was ruled out. She did have some e levated creatinine level, which is around her baseline. Triglycerides were elevated and HDL was low. The patient will be continued on statin. The patient was then cleared for discharge and was sent h ome in a stable condition. Activity: As tolerated. Medications: As per medication reconciliation list. Followup: Follow up with primary care physician in 2-3 days. Follow up with tufting creeler, Dr. Ana salguero for stress test in a.m. Return to ER for worsening condition. Diet: Heart healthy. Physical Examination: General: Awake, alert, oriented x3. Elderly female, no acute distress. CV: S1, S2. Peripheral pulses present. Respiratory: Moving air well bilaterally. Abdomen: Soft, nontender, nondistended. Positive bowel sounds. Extremities: No clubbing, cyanosis, or edema. Neurologic: Nonfocal. Code Status: Full. SA/MODL Voice ID: [id number] Report ID: [id number]
[2018-11-12] MEDS ORDERED: PANTOPRAZOLE 40MG TABLET PO SCH (06:30)
[2018-11-12] MEDS ORDERED: CLOPIDOGREL 75 MG TABLET PO SCH (09:00)
[2018-11-12] MEDS ORDERED: LOSARTAN/HCTZ 50-12.5 PO SCH (09:00)
[2018-11-12] MEDS ORDERED: FOLIC ACID 1 MG TABLET PO SCH (09:00)
[2018-11-12] MEDS ORDERED: FENOFIBRATE 160 MG TAB PO SCH (09:00)
== END 2018-11-11 13:37 | disposition home or self-care (01) ==
LOC: ER 23:12 → ERHOLD 11-11 01:56 → 2ND 11-11 02:23
PROVIDERS: ADMIT Hospitalist; ATTEND Hospitalist
DX: I25.110 Atherosclerotic heart disease of native coronary artery with unstable angina pectoris (principal); I73.9 Peripheral vascular disease, unspecified; L40.50 Arthropathic psoriasis, unspecified; M06.9 Rheumatoid arthritis, unspecified; E78.5 Hyperlipidemia, unspecified; I16.1 Hypertensive emergency; I70.1 Atherosclerosis of renal artery; F17.210 Nicotine dependence, cigarettes, uncomplicated; Z88.0 Allergy status to penicillin; Z88.2 Allergy status to sulfonamides; Z86.73 Personal history of transient ischemic attack (TIA), and cerebral infarction without residual deficits; I25.2 Old myocardial infarction; Z95.5 Presence of coronary angioplasty implant and graft
CPT/HCPCS: 93005; 85025; 36415; 83735; 85610; 80061; 80076; 81003; 84484 ×2; 80053; 83880; 71045; 99285; J1650; G0378 ×2

== ENCOUNTER 2020-01-21 07:44 | Day surgery (SDC) | payer OTHER ==
[2020-01-16 14:18] LABS: Urine Appearance CLEAR; Urine Bilirubin NEGATIVE (NEG); Urine Blood NEGATIVE (NEG); Urine Color YELLOW; Urine Glucose NEGATIVE (NEG); Urine Protein NEGATIVE (NEG); Urine Specific Gravity 1.015 (1.005-1.030); Urine Urobilinogen 0.2 mg/dL (0.2-1.0)
--- NOTE | 2020-01-16 14:23 | RAD REPORT ---
EXAM DESCRIPTION: Claudine Martines (2 Views)01/16/2020 1:56 pm CLINICAL HISTORY: Preop for thumb surgery. Hypertension COMPARISON: 2019 FINDINGS: The lungs appear clear of acute infiltrate. The heart is normal size IMPRESSION: No acute abnormalities displayed
[2020-01-16 14:29] LABS: Absolute Lymphocytes (CBC) 3.4 K/uL (0.7-4.9); Basophils % 0.7 % (0-1.3); Hematocrit 42.9 % (36.0-45.0); Lymphocytes % 36.4 % (15.3-44.8); MPV 10.5 fL (7.6-11.3); RBC Red Blood Cell Count 4.74 M/uL (3.86-4.86)
[2020-01-16 14:41] LABS: Urine Microscopic Reflex NO UMIC
--- NOTE | 2020-01-17 06:25 | EKG ---
Test Date: 2020-01-16 Test Time: 12:27:55 Director Of Field Sales: KADI MEASUREMENT RESULTS: Intervals: Rate: 71 DC: 172 QRSD: 94 QT: 428 QTc: 465 [place]: P: 38 DC: 172 QRS: 59 T: 74 INTERPRETIVE STATEMENTS: Normal sinus rhythm Nonspecific ST abnormality Abnormal ECG Compared to ECG 11/10/2018 23:26:39 Right-axis deviation no longer present ST (T wave) deviation still present Electronically Signed On 01-17-20 06:24:05 CDT by Timothy Bob
--- OUTSIDE RECORDS SUMMARY | 2020-01-21 08:14 | XMS REPORT | Continuity of Care Document ---
:1945 Author Organization [facility] [employer] Care Team Providers Name Role Phone [facility] Unavailable Un available Problems Problem Status Onset Classification Date Comments Sourc e Date Reported LUMBAR PAIN Active 01/07/20 [place] [id number] [facility] LEFT PARACENTRAL Active 01/07/20 [facility] HERNITED DISC AND 15 [facility] Low back pain Active 01/06/20 Problem 12/28/2019 Data Misch er (disorder) 15 migrated Neuro from [facility] on 04/21/15. Lumbar Active 01/06/20 Problem 12/28/2019 Data Mischer radiculopathy 15 migrated Neuro (disorder) from [facility] on 04/21/15. Spinal stenosis of Active 01/06/20 Problem 12/28/2019 Data Mischer lumbar region 15 migrated Neuro (disorder) from [facility] on 04/21/15. Tobacco dependence Active 01/06/20 Problem 12/28/2019 Data Mischer syndrome 15 migrated Neuro (disorder) from [facility] on 04/21/15. Aneurysm Resolved Problem 12/28/2019 abdominal Mischer (disorder) [facility] Atherosclerosis of Active Problem 12/28/2019 Mischer coronary artery Neur o, (disorder) [facility] Chronic Active Problem 12/28/2019 Mischer obstructive lung Marilu ro, disease (disorder) [facility] Hand pain Active Problem 12/28/2019 Mischer (finding) Neuro Hyperlipidemia Active Problem 12/28/2019 Misc her (disorder) Neuro,[facility] Hypertensive Active Problem 12/28/2019 Mische r disorder, systemic N euro, arterial [place] (disorder) [facility] Obstructive sleep Active Problem 12/28/2019 M ischer apnea syndrome Neuro , (disorder) [facility] Pulmonary embolism Resolved Problem 12/28/2019 Mischer (disorder) [facility] Psoriasis with Active Problem 12/28/2019 Misc her arthropathy Neuro, (disorder) [facility] Peripheral Active Problem 12/28/2019 Mischer vascular disease Marilu ro, (disorder) [facility] LUMBAR DISC Active [facility] DISPLACEMENT [facility] SPIN STEN,LUMBR WO Active [facility] Medications Medication Details Route Status Patient Ordering Order Source Instructions Provider Date { Active [facility] (Methylprednisolone Instructions: 2014 Medical 4 MG Oral Tablet Take by mouth C enter [Medrol]) } Pack as directed on [Medrol Dosepak] package instructions. docusate sodium 100 100 mg = 1 Active [facility] mg oral capsule cap, PO, Q12H, [facility], 0 Center Refill(s) Pepcid Notes: (Same No Longer [facility] as: Pepcid) Active 2014 Medical [place] Saline Flush 0.9% Notes: (Same No Longer [facility] as: BD Active 2014 Medical Posiflush) Center Famotidine Notes: (Same In[facility]: Pep[facility]id) 2014 [facility] Can be dilute Center in 5-10cc NS IVP: Slow IV push over at least 2 minutes. Docusate Notes: (Same No Longer [facility] as: Colace) Active 2014 Medical (Do Not Crush) Center sennosides, PRISON Notes: (Same No Longer [facility] as: Senokot) Active [facility] Medical [place] Vancomycin 6.67 2001 mg: [place]/ML Injectable infuse over 2014 Med ical Solution 2.5 hours Center MEDICATION WASTE Product Size: 1000 mg Product Wasted: ___ mg Acetaminophen 325 MG Notes: Do not No Longer [facility] / Hydrocodone exceed 4gm/day Active 2014 Med ical Bitartrate 10 MG of Center Oral Tablet [[place] acetaminophen. 10/325] (Same as: [place] 325/10) Dexamethasone Notes: No Longer [facility] Concentration: Active 2014 Medical 4mg/ml Center Metoclopramide Notes: (Same No Longer [facility] as: Reglan) Active [facility] Medical [place] Ondansetron Notes: (Same Inactive [facility] as as: Zofran) 2015 Medical MEDICATION Center WASTE Product Size: 4 mg Product Wasted: __0_ mg Flumazenil Notes: (Same Inactive [facility] as: Romazicon) 2015 Medical Center Morphine Notes: (Same Inactive [facility] as:MORPhine 2014 Medical Sulfate) Center Naloxone Notes: Same as Inactive [facility] Narcan 2014 [facility] Center Saline Flush 0.9% Notes: (Same No Longer [place] as: BD Active 2014 Medical Posiflush) Center Bisacodyl Notes: (Same No Longer [facility] As: Dulcolax, Active 2014 Medical Bisco-Lax) Center Morphine Notes: (Same No Longer [facility] as:MORPhine Active 2014 Medical Sulfate) Center Ondansetron Notes: (Same [place] Long[place] as: Zofran) Active 2014 Medical MEDICATION Center WASTE Product Size: 4 mg Product Wasted: _0__ mg Tramadol Notes: Not to No Longer [facility] exceed Active 2014 Medical 400mg/day. Center (Same As: Ultra) Sodium Chloride 1,000 mL, No Longer [place] 0.154 MEQ/ML Rate: 50 Active 2014 Medical Injectable Solution ml/hr, Infuse Center over: 20 hr, Route: IV, Dosing Weight 72.273 kg, Total Volume: 1,000, Start date: 01/15/15 10:26:00, Duration: 30 day, Stop date: 02/14/15 10:25:00 Vancomycin 2001 mg: Inactive [facility] infuse over 2014 Medical 2.5 hours Center MEDICATION WASTE Product Size: 1000 mg Product Wasted: ___ mg vancomycin 2001 mg: No Longer [facility] infuse over Active 2014 Medical 2.5 hours Center MEDICATION WASTE Product Size: 1000 mg Product Wasted: ___ mg bupivacaine liposome Notes: (Same No Longer 12/27 [place] as: Exparel) Active 2014 Medical NOT FOR IV Center use Postoperative analgesia: Infiltration (local): Dose is based on surgical site and volume required to cover the area (in general, the maximum total dose is 266 mg). Bunionectomy: 7 mL into the tissues surrounding the osteotomy and 1 mL into the subcutaneous tissue of the surgical site (total dose = 8 mL [106 mg]) Hemorrhoidecto my: 30 mL (20 mL vial diluted with 10 mL NS) divided and administered as 6 injections of 5 mL each (total dose = 30 mL [266 mg]) vancomycin 2001 mg: No Longer [facility] infuse over Active 2014 [facility] 2.5 hours [place] MEDICATION WASTE Product Size: 1000 mg Product Wasted: ___ mg fentaNYL 12 mcg/hr 1 patch, TOP, Active [facility] transdermal film, Q72H, 0 2014 Medica l extended release Refill(s) Cente r Acetaminophen 325 MG 1 tab, PO, Active [facility] / Hydrocodone PRN, PRN for 2015 Medic al Bitartrate 10 MG pain, # 24 Cent er Oral Tablet [[place] tab, 0 10/325] Refill(s) Tylenol PO, PRN, 0 Active [facility] Refill(s) [address] [place] [address] 0.98 ML Etanercept SUB-Q, QMon, 0 Active [facility] 50 MG/ML Prefilled Refill(s) [facility] Med ical Syringe [Enbrel] [place] Carbidopa 25 MG / 1 tab, PO, Active [facility] Levodopa 100 MG Oral TID, 0 2015 Med ical Tablet Refill(s) [place] Aspirin Low Dose 81 PO, Daily, 0 Active 01/12[facility] mg oral tablet Refill(s) [address] [place] [address] methotrexate 2.5 mg 20 mg = 8 tab, Active 01/12 [facility] oral tablet PO, QMon, 0 2015 Medical Refill(s) [place] Hydrochlorothiazide 1 tab, PO, Active 01/12/ M H [place] 12.5 MG / Losartan Daily, # 30 2015 edical Potassium 50 MG Oral tab, [address] Tablet Refill(s) Fenofibrate 160 MG 160 mg = 1 Active [facility] Oral Tablet tab, PO, 2015 Medical Daily, # 30 [place] tab, 0 Refill(s) Vitamin D3 2000 intl 2,000 IntlUnit Active 12/26 [facility] units oral capsule = 1 cap, PO, 2014 Medical Daily, 0 [place] Refill(s) Estrogens, 0.625 mg = 1 Active [facility] Conjugated (PRISON) tab, PO, 2015 Medica l 0.625 MG Oral Tablet Daily, # 30 Center [Premarin] tab, 0 Refill(s) pravastatin 20 mg 20 mg = 1 tab, Active [place] oral tablet PO, Bedtime, # 2015 Medic al 30 tab, 0 Center Refill(s) Folic Acid 1 MG Oral 1 mg = 1 tab, Active 01/12 [place] Tablet PO, Daily, # 2015 Medical 30 tab, 0 Center Refill(s) metoprolol tartrate 100 mg = 1 Active H [place] 100 mg oral tablet tab, PO, BID, 2015 Medical # 180 tab, 0 Center Refill(s) Potassium Chloride 10 mEq = 1 Active [place] 10 MEQ Extended tab, PO, BID, 2015 Me dical Release Tablet 0 Refill(s) Cente r omeprazole 20 mg 20 mg = 1 tab, Active [facility] oral enteric coated PO, Daily, 0 2015 Medical tablet Refill(s) Center clopidogrel 75 MG 75 mg = 1 tab, No Longer 01/12 [facility] Oral Tablet [Plavix] PO, Daily, # Active 2014 Medical 30 tab, 0 Center Refill(s) Allergies, Adverse Reactions, Alerts Substance Category Reaction Severity Reaction Status Date Comments S ource type Reported sulfa Assertion Drug Active Data Misc her drugs<sup>1</ allergy 5 migrated N euro sup> from [facility] on 04/20/15. Originally documented as SULFA. erythromycin< Assertion Drug Active Data Mischer sup>2</sup> allergy 5 migrated Marilu ro from [facility] on 04/20/15. Originally documented as ERYTHROMYCI N BASE. cefaclor<sup> Assertion Drug Active Data Mischer 3</sup> allergy 5 migrated Neuro from [facility] on 04/20/15. Originally documented as CECLOR. clarithromyci Assertion Drug Active Data Mischer n<sup>4</sup> allergy 5 migrated N euro from [facility] on 04/20/15. Originally documented as BIAXIN. nitrofurantoi Assertion Drug Active Data Mischer n<sup>5</sup> allergy 5 migrated N euro from [facility] on 04/20/15. Originally documented as MACROBID. sulfamethoxaz Assertion Drug Active Data Mischer ole-trimethop allergy 5 migrated N euro rim<sup>6</steele from [facility] p> [facility] on 04/20/15. Originally documented as BACTRIM. pentazocine<s Assertion Drug Active Data Mischer up>7</sup> allergy 5 migrated Neur o from [facility] on 04/20/15. Originally documented as TALWIN. penicillin V Assertion Drug Active Data Mischer potassium<sup allergy 5 migrated N euro >8</sup> from [employer] [facility] on 04/20/15. Originally documented as PENICILLIN V POTASSIUM. Adhesive Assertion Drug Active Misch er allergy Neuro Bactrim Assertion Drug Active Mische r allergy Neuro Ceclor Assertion Drug Active Mische r allergy Neuro codeine Assertion Drug Active Mische r allergy Neuro erythromycin Assertion Drug Active [facility] Macrobid Assertion Drug Active Misch er allergy Neuro penicillins Assertion Drug Active [place] allergy Neuro sulfa drugs Assertion Drug Active [facility] Talwin Assertion Drug Active Mische r allergy Neuro Immunizations No Data Provided for This Section Results Order Name Results Value Reference Date Interpretation Comments Concetta rce Range CHEM PANEL eGFR 58 01/12/ <sup>1</sup>R Peter white 2014 esult Medical Comment: The Center eGFR is calculated using the CKD-EPI formula. In most young, healthy individuals the eGFR will be >90 mL/min/1.73m2 . The eGFR declines with age. An eGFR of 60-89 may be normal in some populations, particularly the elderly, for whom the CKD-EPI formula has not been extensively validated. Use of the eGFR is not recommended in the following populations:& lt;br/>
I ndividuals with unstable creatinine concentration s, including patients and those with serious co-morbid conditions.<b r/>
Patie nts with extremes in muscle mass or diet.

The data above are obtained from the National Kidney Disease Education Program (NKDEP) which additionally recommends that when the eGFR is used in patients with extremes of body mass index for purposes of drug dosing, the eGFR should be multiplied by the estimated BMI. CHEM PANEL Chloride Lvl 106 95 - 109 [place] 2014 [facility] CHEM PANEL CO2 28 24 - 32 2014 [facility] CHEM PANEL Calcium Lvl 8.8 8.5 - 10.5 as 2014 [facility] CHEM PANEL Creatinine 1.0 0.5 - 1.4 Lvl 2014 [facility] CHEM PANEL Sodium Lvl 142 135 - 145 2014 [facility] CHEM PANEL Potassium Lvl 3.9 3.5 - 5.1 xa2014 [facility] CHEM PANEL Glucose Lvl 80 70 - 99 01/12/ <sup>2</sup>I 2014 nterpretive Medical Data: Adult Center reference range values reflect the clinical guidelines
of the [place] [employer]. CHEM PANEL BUN 22 7 - 22 2014 [facility] CHEM PANEL AGAP 11.9 10.0 - 20.0 2014 [facility] HEMATOLOGY Eosinophils # 0.1 0.0 - 0.5 [place] 2014 [facility] HEMATOLOGY Monocytes # 0.7 0.0 [place] 0.8 [place] 2014 [facility] HEMATOLOGY Segs-Bands # 5.2 1.5 - 8.1 as 2014 [facility] HEMATOLOGY Lymphocytes # 2.2 1.0 - 5.5 2014 [facility] HEMATOLOGY Basophils 0.6 0.0 - 1.0 2014 [facility] HEMATOLOGY Eosinophils 1.4 0.0 [place] 4.0 [place] 2014 [facility] HEMATOLOGY Lymphocytes 26.4 20.0 - 40.0 [place] 2014 [facility] HEMATOLOGY Segs 62.7 45.0 - 75.0 2014 [facility] HEMATOLOGY Monocytes 8.9 2.0 - 12.0 2014 [facility] HEMATOLOGY MPV 9.7 7.4 - 10.4 2014 [facility] HEMATOLOGY Platelet 209 133 - 450 2014 [facility] HEMATOLOGY RDW 16.0 11.5 - 14.5 2014 [facility] HEMATOLOGY MCH 32.4 27.0 - 31.[address] HEMATOLOGY Hct 40.6 36.0 - 48.[address] HEMATOLOGY MCV 97.6 80.0 - 98.[address] HEMATOLOGY MCHC 33.2 32.0 - 36.[address] HEMATOLOGY Hgb 13.5 12.0 - 16.[address] HEMATOLOGY RBC 4.16 4.20 - 5.[address] HEMATOLOGY WBC 8.3 3.7 - 10.[address] Pathology Reports No Data Provided for This Section Diagnostic Reports No Data Provided for This Section Consultation Notes No Data Provided for This Section Discharge Summaries No Data Provided for This Section History and Physicals No Data Provided for This Section Vital Signs Vital Sign Value Date Comments Source Heart Rate 72 01/16/[address] [facility] [place] [place] Temperature Oral (F) 97.9 F 01/16/2015 [facility] Systolic (mm Hg) 138 01/16/2015 [facility] Diastolic (mm Hg) 73 01/16/2015 [facility] Respitory Rate 18 01/16/2015 [facility] Respitory Rate 17 01/16/2015 [facility] Systolic (mm Hg) 120 01/16/2015 [facility] dical Center Diastolic (mm Hg) 75 01/16/2015 [facility] Temperature Oral (F) 97.9 F 01/16/2015 [facility] Heart Rate 88 01/16/[address] [facility] [place] [place] Systolic (mm Hg) 127 01/16/2015 [facility] Diastolic (mm Hg) 70 01/16/2015 [facility] Respitory Rate 18 01/16/2015 [facility] Heart Rate 90 01/16/[address] [facility] [place] [place] Temperature Oral (F) 97.6 F 01/16/2015 [facility] BMI Calculated 28.22 01/12/2015 [facility] Weight 72.273 01/12/[address] [facility] [place] [place] Height 160.02 cm 01/12/[address] [facility] [place] [place] Encounters Location Location Encounter Encounter Reason Attending ADM CT Stat us Source Details Type Number For Provider Date Date Visit [facility] [id number] Elliot Granados 01/15 01/16 [facility] Outpatient /2014 [facility] Outpatient [id number] Oren 12/25 Active [facility] [place] [facility] Out[facility] [id number] Arsh 12/25 12/26 [facility] [place] /2019 Neur [facility] [place] Procedures Procedure Code Date Perfomer Comments Source Ankle joint [id number] [facility] operations [facility] Appendectomy [id number] [facility] Carotid [id number] [facility] endarterectomy [facility] Hysterectomy [id number] [facility] Stent placement [id number] [facility] Tonsillectomy [id number] [facility] Assessment and Plan No Data Provided for This Section Plan of Care No Data Provided for This Section Social History Social History Date Source Social History TypeResponse 01/15/2015 [facility] Smoking Status Current every day smoker; Exposure to To bacco Smoke None; Cigarette Smoking Last 365 Days Yes; Reg Smoking Cessation Counseling Yes Social History TypeResponse 01/15/2015 [facility] Neur o Smoking Status Current every day smoker; Exposure to To bacco Smoke None; Cigarette Smoking Last 365 Days Yes; Reg Smoking Cessation Counseling Yes entered on: 01/15/15 Family History No Data Provided for This Section Advance Directives No Data Provided for This Section Functional Status No Data Provided for This Section
--- OUTSIDE RECORDS SUMMARY | 2020-01-21 08:15 | XMS REPORT ---
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, unspecified stage Problem History of stenosis of renal Z86.79 Active artery Problem Dysfunction of both eustachian H69.83 Active tubes Problem Hot flashes due to surgical N95.8 Active menopause Problem Allergic contact dermatitis, L23.9 Active unspecified trigger Problem Monitoring of smoking cessation Z53.20 Active therapy declined Problem Drug-induced constipation K59.03 Ac tive Problem Benign hypertension I10 Active Problem Encounter for immunization Z23 A ctive Problem Stage 3 chronic kidney disease N18.3 Active Problem Sciatic nerve pain, unspecified M54.30 Active laterality Problem Hypocalcemia E83.51 Active Problem Nicotine dependence F17.200 Active Problem 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
--- OUTSIDE RECORDS SUMMARY | 2020-01-21 08:15 | XMS REPORT ---
:1945 Author Organization [employer] Care Team Providers Name Role Phone Gwen Montes De Oca Provider Role Unavailable Allergies, Adverse Reactions, Alerts Substance Reaction Event Type PCN rash Drug Allergy Talwin Anxiety Drug Allergy Nitrofurantoin Macrocrystal rash Drug Allergy Erythromycin cold feeling in body; vomiting Drug Marko rgy Biaxin rash Drug Allergy Problems Problem Type Condition Code Onset Dates Condition Statu s Assessment Stage 3 chronic kidney disease N18.3 Active Problem Chronic obstructive pulmonary J44.9 Active disease, unspecified Assessment Benign hypertension I10 [address] elevation (STEMI) myocardial I21.11 Active infarction involving right coronary artery Assessment Chronic obstructive pulmonary J44.9 Active disease, unspecified Problem Arteriosclerotic heart disease I25.10 Active Problem 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, unspecified stage Problem History of stenosis of renal Z86.79 Active artery Problem Dysfunction of both eustachian H69.83 Active tubes Problem Allergic contact dermatitis, L23.9 Active unspecified trigger Problem Hot flashes due to surgical N95.8 Active menopause Problem Monitoring of smoking cessation Z53.20 Active therapy declined Assessment AAA (abdominal aortic aneurysm) I71.4 Active Problem Drug-induced constipation K59.03 Ac tive Problem [...] Active Problem Restless leg syndrome G25.81 Active Medications Medication Code Code Instructions Start End Status Dosage System Date Date Clonidine HCl [facility] 04088223124 0.1 MG Orally Active 1 tablet Once a day PRN at bedtim e Aspirin Adult [facility] 10045045769 81 MG Orally Active 1 tablet Low Dose Once a day Folic Acid [facility] 87864792267 1 MG Orally Once Active 1 tablet a day Furosemide [facility] 48245152418 20 MG Oral Active TAKE 1 TABLET BY MOUTH EVERY DAY Plavix [facility] 37309733675 75 MG Orally Active 1 table t Once a day Omeprazole [facility] 86114291849 20 MG Orally Active 1 ca psule Once a day Tylenol PM [facility] 15442498890 500-25 MG Orally Active 1 tablet Extra Strength Once a day at bed time as needed Sinemet [facility] 55112787626 25-100 MG Orally Active berenice e 1 Three times a tablet by day mouth twice a day Pravastatin [facility] 32072409442 20 MG Active TAKE 1 Sodium TABLET BY MOUTH EVERY DAY Metoprolol [facility] 83623307003 100 MG Orally Active 1 t ablet Tartrate Twice a day with food Klor-Con 10 [facility] 61994301141 10 MEQ Active TAKE 2 TABLETS BY MOUTH EVERY DAY Estradiol [facility] 67853639354 1 MG Active TAKE 1 TABLET BY MOUTH EVERY DAY Vitamin D3 [facility] 78293838773 2000 UNIT Orally Active 1 capsule Once a day Ranexa [facility] 19941966668 500 MG Orally Active 1 tabl et once a day Losartan [facility] 06774228984 100-25 MG Orally Active 1 tablet Potassium-HCTZ Once a day Enbrel [facility] 38576722829 50 MG/ML Active 1 ml SureClick Subcutaneous Results No Known Results Summary Purpose [employer]ClinicalWorks Submission
--- OUTSIDE RECORDS SUMMARY | 2020-01-21 08:15 | XMS REPORT ---
:1945 Author Organization [facility] t Address [address] [place] [address] Care Team Providers Name Role Phone Nik Jimenes Attending Clinician Paulette Granados Attending Clinician Paulette Granados Admitting Clinician Problems Condition Condition Condition Status Onset Resolution Last Treating Co mments Source Name Details Category Date Date Treatment Clinician Date LUMBAR Diagnosis Active 2015-01-06 PAIN 5-12 11:32:00 [place] LUMBAR 00:00: Medical PAIN 00 Center Active 01/06/2015 [facility] LEFT Diagnosis Active 2015-01-16 [place]12 07:[place] LEFT 00:00: Medica l DISC AND PARACENTRA 00 Cent er STENO L HERNITED DISC AND STENO Active 01/06/2015 [facility] Low back Problem Active 2019-12-28 Mis manuel pain 5-11 23:22:16 Neuro (disorder) Low back 00:00: pain 00 (disorder) Active 01/05/2015 Problem 12/28/2019 Data migrated from [employer] on 04/21/15[facility] Lumbar Problem Active 2019-12-28 Misch er radiculopa 5-11 23:22:16 Neur o thy Lumbar 00:00: (disorder) radiculopa 00 thy (disorder) Active 01/05/2015 Problem 12/28/2019 Data migrated from [employer] on 04/21/15[facility] Spinal Problem Active 2019-12-28 Misch er stenosis - 23:22:16 Neuro of lumbar Spinal 00:00: region stenosis 00 (disorder) of lumbar region (disorder) Active 01/05/2015 Problem 12/28/2019 Data migrated from [employer] on 04/21/15. [facility] Tobacco Problem Active 2019-12-28 Misc her dependence 01-05 23:22:16 Neur o syndrome Tobacco 00:00: (disorder) dependence 00 syndrome (disorder) Active 01/05/2015 Problem 12/28/2019 Data migrated from [employer] on 04/21/15. [facility] Other Other Problem Active [facility] specified specified Luke s - menopausal menopausal Me moria and and l perimenopa perimenopa Ou tpati usal usal ent disorders disorders Clin ics Nicotine Nicotine Problem Active [facility] dependence dependence My[facility]le kes - Memoria l Outpati ent Clinics Restless Restless Problem Active [facility] leg leg [facility] - syndrome syndrome Memori a l Outpati ent Clinics AAA AAA Problem Active [facility] (abdominal (abdominal [place]le kes - aortic aortic Memoria aneurysm) aneurysm) l Outpati ent Clinics Hyperlipem Hyperlipem Problem Active [facility] ia ia [facility]pat[facility] Clin[facility] ST ST Problem Active [facility] elevation elevation Luke s - (STEMI) (STEMI) Memoria myocardial myocardial l infarction infarction Ou tpati involving involving ent right right Clinics coronary coronary artery artery Chronic Chronic Problem Active [facility] obstructiv obstructiv [place] kes - e e Memoria pulmonary pulmonary l disease, disease, Outpat i unspecifie unspecifie en t d d Clinics Hypocalcem Hypocalcem Problem Active [facility] ia ia [facility]pati ent Clinics 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 [facility] - heart heart Memoria disease disease l Outpati ent Clinics Arthropath Arthropath Problem Active [facility] ic ic [facility] - psoriasis psoriasis Ankit kirstie l Outpati ent Clinics Sciatic Sciatic Problem Active [facility] nerve nerve [facility] - pain, pain, Memoria unspecifie unspecifie l d d Outpati laterality laterality en t Clinics Drug-induc Drug-induc Problem Active [facility] ed ed [facility] - constipati constipati Me moria on on l Outpati ent Clinics 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 Ou tpati on, on, ent unspecifie unspecifie Cl inics d stage d stage Benign Benign Problem Active [facility] hypertensi hypertensi [place] kes - on on Memoria l Outpati ent Clinics History of History of Problem Active [facility] stenosis stenosis [facility] - of renal of renal Memori a artery artery l Outpati ent Clinics Stage 3 Stage [address] [facility] chronic chronic [facility] - kidney kidney Memoria disease disease l Outpati ent Clinics Allergic Allergic Problem Active [facility] t contact contact [facility] - dermatitis dermatitis Me moria , , l unspecifie unspecifie Ou tpati d trigger d trigger ent Clinics Encounter Encounter Problem Active [facility] for for [facility] - immunizati immunizati Me moria on on l Outpati ent Clinics Dysfunctio Dysfunctio Problem Active [facility] n of both n of both Luke s - eustachian eustachian Me moria tubes tubes l Outpati ent Clinics Monitoring Monitoring Problem Active [facility] of smoking of smoking [place]le kes - cessation cessation Ankit kirstie therapy therapy l declined declined Outpat i ent Clinics Aneurysm Problem Resolve 2019-12-28 Mi hevre (disorder) d 23:22:16 Neur o, Aneurysm (disorder) [facility] Resolved Problem 12/28/2019 abdominal [facility] [place] [facility] Atheroscle Problem Active 2019-12-28 M ischer rosis of 23:22:16 Neuro, coronary artery Atheroscle [place] (disorder) rosis of [facility] coronary [place] artery (disorder) Active Problem 12/28/2019 [facility] Chronic Problem Active 2019-12-28 Mis her obstructiv 23:22:16 Neur o, e lung Chronic disease obstructiv [place] (disorder) e lung Medica disease [place] (disorder) Active Problem 12/28/2019 [facility] Hand pain Problem Active 2019-12-28 Wy herve (finding) 23:22:16 Neuro Hand pain (finding) Active Problem 12/28/2019 [facility] [place] [place] Neuro Hyperlipid Problem Active 2019-12-28 M ischer emia 23:22:16 Neuro, (disorder) Hyperlipid [place] emor Medical (disorder) Center Active Problem 12/28/2019 [facility] Hypertensi Problem Active 2019-12-28 M ischer ve 23:22:16 Neuro, disorder, systemic Hypertens[place] arterial ve Medical (disorder) disorder, Mali ter systemic arterial (disorder) Active Problem 12/28/2019 [facility] [place] [place] [facility] Obstructiv Problem Active 2019-12-28 M ischer e sleep 23:22:16 Neuro, apnea syndrome Obstructiv [place] (disorder) e sleep Medic al apnea [place] syndrome (disorder) Active Problem 12/28/2019 [facility] Pulmonary Problem Resolve 2019-12-28 M ischer embolism d 23:22:16 Neuro, (disorder) Pulmonary [place] embolism Medical (disorder) Center Resolved Problem 12/28/2019 [facility] Psoriasis Problem Active 2019-12-28 Mi herve with 23:22:16 Neuro, arthropath y Psoriasis [place] (disorder) with Medica l arthropath [place] y (disorder) Active Problem 12/28/2019 [facility] Peripheral Problem Active 2019-12-28 M ischer vascular 23:22:16 Neuro, disease (disorder) [place]ipheral [place] vascular Medical disease [place] (disorder) Active Problem 12/28/2019 [facility] LUMBAR Diagnosis Active 2015-01-16 DISC 07:05:00 [place] DISPLACEME LUMBAR Medi zak NT DISC Center DISPLACEME NT Active [facility] SPIN Diagnosis Active 2015-01-16 [place]LUMBR 07[place]05[place] SANDY SPIN Medical STEN,LUMBR Center WO SANDY Active [facility] Allergies, Adverse Reactions, Alerts Allergy Allergy Status Severity Reaction(s) Onset Inactive Treating Comm ents Source Name Type Date Date Clinician sulfa sulfa Active Memoria drugs<steele drugs<steele 5-11 l p>1</sup p>1</sup 05:00: Tian n > > [address] [facility] [address] [facility] clarithr clarithr Active Memori a omycin<s omycin<s 5-11 l up>4</steele up>4</steele 05:00: Tian n p> p> [address] [facility] [address] [facility] penicill penicill Active Memori a in V in V 5-11 l potassiu potassiu 05:00: Tian early m<sup>8< m<sup>8< [facility] PCN Adverse Active rash [facility] Reaction [facility] Outpat[facility] ent Clinics Erythrom Adverse Active cold feeling C [facility] ycin Reaction in body; [facility] vomiting [facility] Talwin Adverse Active Anxiety [facility] Nitrofur Adverse Active rash [facility] antoin Reaction [facility] - Macrocry Memoria stal [facility] Biaxin Adverse Active rash [facility] Reaction [facility] Adhesive Adhesive Active Memori a l [facility] Bactrim Bactrim Active Memoria l [facility] Ceclor Ceclor Active Memoria l [facility] codeine codeine Active Memoria l [facility] erythrom erythrom Active Memori a ycin ycin l [facility] Macrobid Macrobid Active Memori a l [facility] penicill penicill Active Memori a ins ins l [facility] sulfa sulfa Active Memoria drugs drugs l [facility] Talwin Talwin Active Memoria l [facility] Social History Smoking Status Start Date Stop Date Source Social History 2015-01-15 11:57:01 [facility] Medications Ordered Filled Start Stop Current Ordering Indication Dosage Frequency Signature Comments Components Source Medication Medication Date Date Medication? Clinician (SIG) Name Name { Yes Special (Methylpred [place] Instructio [place] nisolone 4 12:54: ns: Take Med ical MG Oral 00 by mouth Center Tablet as [Medrol]) } directed Pack on package [Medrol instructio Dosepak] ns. docusate Yes 100 mg = 1 sodium 100 5- cap, PO, [place] mg oral 12:54: Q12H, # 50 Medi zak capsule 00 cap, 0 Center Refill(s) Pepcid No Notes: 5- (Same as: [place] 02:00: Pepcid) Medical 00 Center Saline No Notes: Flush 0.9% - (Same as: [place] 02:00: BD Medical 00 Posiflush) [place] Famotidine No Notes: - (Same as: [place] 02:00: Pepcid) Medical 00 Can be Center dilute in 5-10cc NS IVP: Slow IV push over at least 2 minutes. Docusate No Notes: 01-16 (Same as: [place] 02:00: Colace) Medical 00 (Do Not Center Crush) sennosides, No Notes: RETIREMENT 01-16 (Same as: [place] 02:00: Senokot) Medical 00 Center Vancomycin No 2000 mg: 6.67 MG/ML 01-16 infuse [place] Injectable 01:30: over 2.5 Med ical Solution 00 hours Center MEDICATION WASTE Product Size: 1000 mg Product Wasted: ___ mg Acetaminoph No Notes: Do M H en 325 MG / 01-15 [place] exceed [place] Hydrocodone 21:00: 4gm/day of Medical Bitartrate [address] 10 MG Oral hen. Tablet (Same as: [[place] 10/325] 325/10) Dexamethaso No Notes: ne 01-15 Concentrat [place] 17:00: ion: Medical 00 4mg/ml Center Metoclopram No Notes: zena 01-15 (Same as: [place] 17:00: Reglan) Medical 00 Center Ondansetron No Notes: 01-15 (Same as: [place] 15:41: Zofran) Medical 00 Center MEDICATION WASTE Product Size: 4 mg Product Wasted: __0_ mg Flumazenil No Notes: 01-15 (Same as: [place] 15:41: Romazicon) Medical 00 Center Morphine No Notes: 01-15 (Same [place] 15:41: as:MORPhin Medical 00 e Sulfate) Center Naloxone No Notes: 21 Same as [place] 15:41: Narcan Medical 00 Center Saline No Notes: Flush 0.9% 01-15 (Same as: [facility] 15:26: BD Medical 00 Posiflush) Center Bisacodyl No Notes: 01-15 (Same As: [place] 15:26: Dulcolax, Medical 00 Bisco-Lax) Center Morphine No Notes: 01-15 (Same [place] 15:26: as:MORPhin Medical 00 e Sulfate) [place] Ondansetron No Notes: 01-15 (Same as: [place] 15:26: Zofran) Medical 00 Center MEDICATION WASTE Product Size: 4 mg Product Wasted: _0__ mg Tramadol No Notes: Not to exceed [place] 15:26: 400mg/day. Medical 00 (Same As: [place] Ultram) Sodium No 1,000 mL, Chloride 01-15 Rate: 50 [place] 0.154 15:26: ml/hr, Medical MEQ/ML 00 Infuse [place] Injectable over: 20 Solution hr, Route: IV, Dosing Weight 72.273 kg, Total Volume: 1,000, Start date: 01/15/15 10:26:00, Duration: 30 day, Stop date: 02/14/15 10:25:00 Vancomycin No 2000 mg: 01-15 infuse [place] 13:47: over 2.5 Medical 00 hours Center MEDICATION WASTE Product Size: 1000 mg Product Wasted: ___ mg vancomycin No 2000 mg: 01-15 infuse [place] 13:00: over 2.5 Medical 00 hours Center MEDICATION WASTE Product Size: 1000 mg Product Wasted: ___ mg bupivacaine No Notes: liposome 01-15 (Same as: [place] 04:00: Exparel) [facility] 00 NOT Center FOR IV use Postoperat sangita analgesia: Infiltrati on (local): Dose is based on surgical site and volume required to cover the area (in general, the maximum total dose is 266 mg). Bunionecto my: 7 mL into the tissues surroundin g the osteotomy and 1 mL into the subcutaneo us tissue of the surgical site (total dose = 8 mL [106 mg]) Hemorrhoid ectomy: 30 mL (20 mL vial diluted with 10 mL NS) divided and administer ed as 6 injections of 5 mL each (total dose = 30 mL [266 mg]) vancomycin No 2000 mg: 01-15 infuse [place] 04:00: over 2.5 Medical 00 hours Center MEDICATION WASTE Product Size: 1000 mg Product Wasted: ___ mg fentaNYL 12 Yes 1 patch, MH mcg/hr 5-18 TOP, Q72H, [place] transdermal 20:29: 0 Medica l film, 00 Refill(s) [place] extended release Acetaminoph Yes 1 tab, PO, MH en 325 MG / 5-18 PRN, PRN [place] Hydrocodone 20:29: for pain, edical Bitartrate 00 # 24 tab, Cent er 10 MG Oral 0 Tablet Refill(s) [[place] 10/325] Tylenol Yes PO, PRN, 0 MH 5-18 Refill(s) [place] 20:28: Medical 00 [place] 0.98 ML Yes SUB-Q, MH Etanercept 5-18 QMon, 0 [place] 50 MG/ML 20:27: Refill(s) Medi zak Prefilled 00 [place] Syringe [Enbrel] Carbidopa Yes 1 tab, PO, MH 25 MG / 5-18 TID, 0 [place] Levodopa 20:27: Refill(s) Medi zak 100 MG Oral 00 [place] Tablet Aspirin Low Yes PO, Daily, MH Dose 81 mg 5-18 0 [place] oral tablet 20:26: Refill(s) edical 00 [place] methotrexat Yes 20 mg = 8 M H e 2.5 mg 5-18 tab, PO, [place] oral tablet 20:26: QMon, 0 Med ical 00 Refill(s) [place] Hydrochloro Yes 1 tab, PO, MH thiazide 5-18 Daily, # [place] 12.5 MG / 20:26: 30 tab, 0 Med ical Losartan 00 Refill(s) [place] Potassium 50 MG Oral Tablet Fenofibrate Yes 160 mg = 1 MH 160 MG Oral 5-18 tab, PO, [place] Tablet 20:25: Daily, # Medical 00 30 tab, 0 Center Refill(s) Vitamin D3 Yes 2,000 MH 2000 intl 5-18 IntlUnit = [place] units oral 20:25: 1 cap, PO, M edical capsule 00 Daily, 0 Center Refill(s) Estrogens, Yes 0.625 mg = M H Conjugated 5-18 1 tab, PO, David as (RETIREMENT) 0.625 20:25: Daily, # Me dical MG Oral 00 30 tab, 0 Center Tablet Refill(s) [Premarin] pravastatin Yes 20 mg = 1 M H 20 mg oral 5-18 tab, PO, [place] tablet 20:25: Bedtime, # Medic al 00 30 tab, 0 Center Refill(s) Folic Acid Yes 1 mg = 1 MH 1 MG Oral 5-18 tab, PO, [place] Tablet 20:24: Daily, # Medical 00 30 tab, 0 Center Refill(s) metoprolol Yes 100 mg = 1 M H tartrate 5-18 tab, PO, [place] 100 mg oral 20:24: BID, # 180 Medical tablet 00 tab, 0 Center Refill(s) Potassium Yes 10 mEq = 1 MH Chloride 10 5-18 tab, PO, [place] MEQ 20:24: BID, 0 Medical Extended 00 Refill(s) Center Release Tablet omeprazole Yes 20 mg = 1 MH 20 mg oral 5-18 tab, PO, [place] enteric 20:23: Daily, 0 Medica l coated 00 Refill(s) Center tablet clopidogrel No 75 mg = 1 M H 75 MG Oral 5-18 tab, PO, [place] Tablet 20:23: Daily, # Medical [Plavix] 00 30 tab, 0 Center Refill(s) Tylenol PM Tylenol PM Yes Gwen [address] [facility] Extra Extra [place] at bedtime [facility] - Strength Strength as needed Me moria l [facility] Clinics Enbrel Enbrel Yes Gwen [address] SureClick SureClick [place] Luke s - Memoria l [facility] Clinics Aspirin Aspirin Yes Gwen [address] Adult Low Adult Low [place] Luke s - Dose Dose Memoria l [facility] Folic Acid Folic Acid Yes Gwen [address] [facility] [address] [place] [facility] - Memoria l [facility] Plavix Plavix Yes Gwen [address] [facility] [facility] [place] [facility] - Memoria l [facility] Clinics Estradiol Estradiol Yes Gwen TAKE [address] [place] TABLET BY Lukes - MOUTH Memoria EVERY DAY l [facility] Clinics Pravastatin Pravastatin Yes Gwen TAKE [address] [facility] [address] Sodium Sodium [place] TABLET BY [facility]ukes - MOUTH Memoria EVERY DAY l [facility] Losartan Losartan Yes Gwen [address] Potassium-H Potassium-H [place] [facility]ukes - CTZ CTZ Memoria l [facility] Clinics Omeprazole Omeprazole Yes Gwen [address] [facility] [place] [facility] - Memoria l [facility] Sinemet Sinemet Yes Gwen take [address] [facility] [place] tablet by Lukes - mouth Memoria twice a l day [facility] Ranexa Ranexa Yes Gwen [address] [facility] [facility] [place] [facility]ukes - Memoria l [facility] Vitamin D3 Vitamin D3 Yes Gwen [address] [facility] [place] [facility] - Memoria l [facility] Clonidine Clonidine Yes Gwen [address] [facility] [address] HCl HCl [place] at bedtime [facility] - Memoria l [facility] Metoprolol Metoprolol Yes Gwen [address] Tartrate Tartrate [place] with food L ukes - [facility] Klor-Con 10 Klor-Con 10 Yes Gwen TAKE [address] [facility] [place] TABLETS BY Lukes - MOUTH Memoria EVERY DAY l [facility] Furosemide Furosemide Yes Gwen TAKE [address] [facility] [place] TABLET BY [facility] - MOUTH Memoria EVERY DAY l [facility] Immunizations Ordered Filled Immunization Date Status Comments [facility] Immunization Name Name FLUZONE HIGH DOSE FLUZONE HIGH DOSE 2019-06-[address] [facility] - OVER 65 OVER 65 00:00:00 [facility] FLUZONE HIGH DOSE FLUZONE HIGH DOSE 2018-10-[address] [facility] - OVER 65 OVER 65 00:00:00 [facility] PNEUMAVAX 23 PNEUMAVAX 23 2018-05-[address] [facility] [address] [place] [facility] - 00:00:00 [facility] Vital Signs Vital Name Observation Time Observation Value Comments Source Heart Rate 2015-01-16 12:29:00 [facility] Temperature Oral (F) 2015-01-16 12:29:00 97.9 F [facility] Systolic (mm Hg) 2015-01-16 12:29:[address] [facility] Diastolic (mm Hg) 2015-01-16 12:29:00 [facility] Respitory Rate 2015-01-16 12:29:00 [facility] [place] [facility] Respitory Rate 2015-01-16 09:00:00 [facility] Systolic (mm Hg) 2015-01-16 09:00:[address] [facility] Diastolic (mm Hg) 2015-01-16 09:00:00 [facility] Temperature Oral (F) 2015-01-16 09:00:00 97.9 F [facility] Heart Rate 2015-01-16 09:00:00 [facility] Systolic (mm Hg) 2015-01-16 05:00:00 [facility] Diastolic (mm Hg) 2015-01-16 05:00:00 [facility] Respitory Rate 2015-01-16 05:00:00 [facility] Heart Rate 2015-01-16 05:00:00 [facility] Temperature Oral (F) 2015-01-16 05:00:00 97.6 F [facility] BMI Calculated 2015-01-12 20:07:00 [facility] Weight 2015-01-12 20:07:00 [facility] Height 2015-01-12 20:07:00 160.02 cm [facility] Procedures Procedure Date / Time Performed Performing Clinician Sour e Ankle joint operations Mischer N euro, [facility] Appendectomy [facility] [place] [place] Neuro, [facility] [place] Carotid endarterectomy Mischer N euro, [facility] Hysterectomy [facility] [place] [place] Neuro, [facility] [place] Stent placement [facility] [place] [place] Neuro, [facility] [place] Tonsillectomy [facility], [facility] [place] Encounters Start End Encounter Admission Attending Care Care Encounter Source Date/Time Date/Time Type Type Clinicians Facility Department ID 2019-12-26 2019-12-27 Outpatient MHIEALT JOAN [id number] Mischer 13:15:00 04:59:59 Neurology 00 Neur o Merlin 2019-12-26 2019-12-26 Outpatient LUZ ELENA Jimenes [id number] 08:15:00 23:59:59 Oren 00 Nik 2019-12-26 2019-12-26 Outpatient MHIEALT MHIEALT [id number] Memoria 08:15:00 08:15:00 00 l [place] 2019-12-06 2019-12-06 [facility] [id number] [facility] 11:42:00 11:42:00 [facility] Medicine l Medicine Outpati ent [facility] 2019-11-04 2019-11-04 [facility] [id number] [address] 13:00:00 13:00:00 [facility] Medicine l Medicine Outpati ent Clinics 2019-09-26 2019-09-26 [facility] [id number] 10:09:00 10:09:00 t [facility] Medicine l Medicine Outpati ent Clinics 2019-09-17 2019-09-17 [facility] [id number] [address] 11:40:00 11:40:00 [facility] Medicine Medicine Outpati ent Clinics 2019-07-18 2019-07-18 [facility] [id number] 11:40:00 11:40:00 [facility] Medicine l Medicine Outpati ent Clinics 2019-06-25 2019-06-25 [facility] [id number] [address] 11:55:00 11:55:00 [facility] Medicine l Medicine Outpati ent Clinics 2019-06-20 2019-06-20 [facility] [id number] [address] 08:20:00 08:20:00 [facility] Medicine l Medicine Outpati ent Clinics 2019-06-13 2019-06-13 [facility] [id number] [facility] 11:02:00 11:02:00 [facility] Medicine Medicine Outpati ent Clinics 2019-05-13 2019-05-13 [facility] [id number] 15:13:00 15:13:00 [facility] Medicine l Medicine Outpati ent Clinics 2019-05-06 2019-05-06 [facility] [id number] 13:00:00 13:00:00 [facility] Medicine l Medicine Outpati ent Clinics 2018-10-29 2018-10-29 [facility] [id number] [address] 13:00:00 13:00:00 [facility] Medicine Medicine Outpati ent Clinics 2018-10-23 2018-10-23 [facility] [id number] [facility] 11:31:00 11:31:00 t [facility] Medicine l Medicine Outpati ent Clinics 2018-09-14 2018-09-14 [facility] [id number] 08:38:00 08:38:00 [facility] Medicine l Medicine Outpati ent Clinics 2018-08-15 2018-08-15 [facility] [id number] 08:38:00 08:38:00 [facility] Medicine l Medicine Outpati ent Clinics 2018-08-09 2018-08-09 [facility] [id number] 12:00:00 12:00:00 t [facility] - Care [facility] Clinic l Outpati ent Clinics 2018-06-01 2018-06-01 [facility] [id number] [address] 16:54:00 16:54:[address] [facility] l Medicine Outpati ent Clinics 2018-05-30 2018-05-30 [facility] [id number] [facility] 13:30:00 13:30:00 [facility] Medicine l Medicine Outpati ent Clinics 2018-05-01 2018-05-01 [facility] [id number] 09:00:00 09:00:00 [facility] Medicine l Medicine Outpati ent Clinics 2018-04-18 2018-04-18 [facility] [id number] 15:01:00 15:01:00 [facility] Medicine l Medicine Outpati ent Clinics 2018-04-16 2018-04-16 [facility] [id number] 15:05:00 15:05:00 [facility] Clinic l Outpati ent Clinics 2018-01-16 2018-01-16 [facility] [id number] 13:00:00 13:00:00 t [facility] Medicine l Medicine Outpati ent Clinics 2015-01-15 2015-01-16 Bedded [facility] [id number] [facility] 16:00:00 15:40:00 Outpatient [place] 00 [facility] 2015-01-15 2015-01-16 Outpatient Elliot Granados [facility] [id number] 11:00:00 10:40:00 Hwan 00 Results Test Description Test Time Test Comments Results Result Comments Source CHEM PANEL 2015-01-12 58 [facility] CHEM PANEL 2015-01-12 106 [facility] 22:14:00 [place] CHEM PANEL 2015-01-12 28 [facility] 22:14:00 Center CHEM PANEL 2015-01-12 8.8 [facility] 22:14:00 [place] CHEM PANEL 2015-01-12 1.0 [facility] 22:14:00 Center CHEM PANEL 2015-01-12 142 [facility] 22:14:00 [place] CHEM PANEL 2015-01-12 3.9 [facility] 22:14:00 [place] CHEM PANEL 2015-01-12 80 [facility] 22:14:00 [place] CHEM PANEL 2015-01-12 22 [facility] 22:14:00 [place] CHEM PANEL 2015-01-12 11.9 [facility] 22:14:00 [place] HEMATOLOGY 2015-01-12 0.1 [facility] 22:14:00 [place] HEMATOLOGY 2015-01-12 0.7 [facility] 22:14:00 [place] HEMATOLOGY 2015-01-12 5.2 [facility] 22:14:00 [place] HEMATOLOGY 2015-01-12 2.2 [facility] 22:14:00 [place] HEMATOLOGY 2015-01-12 0.6 [facility] 22:14:00 [place] HEMATOLOGY 2015-01-12 1.4 [facility] 22:14:00 [place] HEMATOLOGY 2015-01-12 26.4 [facility] 22:14:00 [place] HEMATOLOGY 2015-01-12 62.7 [facility] 22:14:00 [place] HEMATOLOGY 2015-01-12 8.9 [facility] 22:14:00 [place] HEMATOLOGY 2015-01-12 9.7 [facility] 22:14:00 [place] HEMATOLOGY 2015-01-12 209 [facility] 22:14:00 [place] HEMATOLOGY 2015-01-12 16.0 [facility] 22:14:00 [place] HEMATOLOGY 2015-01-12 22:14:00 Test Item Value Reference Range Interpretation Comme nts MCH (test code = MCH) 32.4 pg 27.0-31.0 [id number] 22:14:[address] [place] [address] [id number] 22:14:0097.[address] [place], [place] [id number] 22:14:0033.[address] [place], [place] [id number] 22:14:0013.[address] [place], [place] [id number] 22:14:004.[address] [place], [place] [address]HEMATOLOGY 2015-01-12 22:14:008.[address] [place] [address]
[2020-01-21] MEDS ORDERED: Ringers Lactate 1,000 ML IV ONE ×2 (08:37→11:49)
[2020-01-21] MEDS ORDERED: FENTANYL CITR 100 MCG/2 ML ONE (08:38)
[2020-01-21] MEDS ORDERED: MIDAZOLAM HCL 2 MG/2 ML INJ ONE (08:38)
[2020-01-21] MEDS ORDERED: propofoL 200 MG/20 ML VIAL IV ONE (08:38)
[2020-01-21] MEDS ORDERED: dexAMETHasone 10 MG/ML VIAL ONE (08:39)
[2020-01-21] MEDS ORDERED: LIDOCAINE 2% MPF 5 ML VIAL ONE (08:39)
[2020-01-21] MEDS ORDERED: KETOROLAC 30 MG/ML INJ ONE (08:39)
[2020-01-21] MEDS ORDERED: Levofloxacin 250mg IV 250 MG/50 ML BAG IV ONE (08:57)
[2020-01-21] MEDS ORDERED: EPHEDRINE SULF 50 MG/ML VIAL ONE (09:53)
[2020-01-21] MEDS ORDERED: GLYCOPYRROLATE 0.2 MG/ML SYR ONE (10:46)
[2020-01-21] MEDS ORDERED: Mastisol Adhesive Liq ONE (11:03)
[2020-01-21] MEDS ORDERED: MORPHINE 10 MG/ML VIAL ONE (11:25)
[2020-01-21] MEDS: MORPHINE 4 MG/ML SYR ONE ×4 (12:18→13:10)
[2020-01-21] MEDS ORDERED: ONDANSETRON 4 MG/2 ML VIAL ONE (12:24)
[2020-01-21 15:28] VITALS: TEMP 97.8
[2020-01-21 15:38] VITALS: BP 118/65; O2SAT 97
--- NOTE | 2020-01-22 08:42 | OP ---
Surgeon: Arsh Izquierdo MD Underground Foreman: Cody. Preoperative Diagnosis: Degenerative left trapezium and ganglion. Postoperative Diagnosis: Degenerative left trapezium and ganglion. Procedure Performed: Resection and replacement of Davey silicone implant, ligament reconstruction, ganglionectomy, and splint. Anesthesia: General. Description Of Procedure: After satisfactory induction of general anesthesia, the left hand was prepped with Betadine scrub and Betadine paint, dry sterile drapes applied in the usual manner. The arm was elevated, exsanguinated with an Esmarch. Tourniquet inflated to 250 mmHg. Hand placed on Rotalok table. Baynoet shaped incision was placed over the first metacarpal extending towards the flexor carpi radialis. Dissection proceeded at this time . Branches of radial nerve were identified and retracted. Incision was made between the extensor and the abductor and dissection down to the trapezium. The traction was placed on the first metacarpal and then the trapezium was split longitudinally and then cracked and removed piecemeal. The flexor carpi radialis was left intact at the base of the wound. A bur was used to bur the portion of the scaphoid to make it concavity appropriate for the flaps for the second implant. Then the tendon was split in the forearm at the muscle tendon junction using a scalpel, and then wire was used to cut and pull towards the hand. The tendon was then tied with silk, passed through a bur hole made in the hollow of the metacarpal and the appropriate size #1 was placed The tendon was passed through the loop to itself, sewn with 4 Mersilene, then looped around to itself, but not tied. Then the implant was placed and then the tendon was pulled tied over the implant and then sewn to the capsule both proximally and distally. The end of the tendon was brought out the external to the capsule and then looped over the tendon back to itself filled with 4-0 Mersilene. The tourniquet released, electrocautery used for hemostasis, wound closed with 4-0 PDS running subcuticular over the thumb and proximally the wound. Dressing consisted of tincture of benzoin and Steri-Strips, 2 inch Katlyn and Kerlix, and thumb spica splint holding the wrist in 10 degrees of dorsiflexion, the base of the thumb at 0 and the MCP of the thumb at 0. Patient tolerated the procedure well and returned to recovery. GH/MODL Voice ID: [id number] Report ID: [id number] DOROTHY
== END 2020-01-21 14:55 | disposition home or self-care (01) ==
LOC: OR 07:44
PROVIDERS: ATTEND Specialist
PROC: 0RRR0JZ Replacement of Left Carpal Joint with Synthetic Substitute, Open Approach (ICD-10-PCS; 2020-01-21)
PROC: 0RRR0JZ Replacement of Left Carpal Joint with Synthetic Substitute, Open Approach (ICD-10-PCS; 2020-01-21)
PROC: 0LB80ZZ Excision of Left Hand Tendon, Open Approach (ICD-10-PCS; principal; 2020-01-21 09:00)
DX: M89.8X4 Other specified disorders of bone, hand (principal); M67.442 Ganglion, left hand; I10 Essential (primary) hypertension; I25.10 Atherosclerotic heart disease of native coronary artery without angina pectoris; I70.209 Unspecified atherosclerosis of native arteries of extremities, unspecified extremity; I25.2 Old myocardial infarction; K21.9 Gastro-esophageal reflux disease without esophagitis; F17.210 Nicotine dependence, cigarettes, uncomplicated; Z88.0 Allergy status to penicillin; Z95.5 Presence of coronary angioplasty implant and graft; Z86.73 Personal history of transient ischemic attack (TIA), and cerebral infarction without residual deficits
CPT/HCPCS: 26160; 25320; 25445; 93005; 85025; 36415; 88304; 88311; 81003; 71046; J2704; J2250; J3010; J1100; J7120 ×2; J2405

== ENCOUNTER 2020-08-12 08:38 | Day surgery (SDC) | payer OTHER ==
[~2020-08-12 08:38] MED LIST: VANCOMYCIN/NS 1 gm 1 GM/250 ML BAG IV SCH
--- OUTSIDE RECORDS SUMMARY | 2020-08-12 08:56 | XMS REPORT | Continuity of Care Document ---
:1945 Author Organization [employer] Care Team Providers Name Role Phone [facility] [employer] [facility] Unavailable Un available Problems Problem Status Onset Classification Date Comments Sourc e Date Reported LUMBAR PAIN Active 01/07/20 [facility] LEFT PARACENTRAL Active 01/07/20 [facility] HERNITED DISC AND 15 [facility] Low back pain Active [...] Aneurysm Resolved Problem 12/28/2019 abdominal Mischer (disorder) [facility] Atherosclerosis of Active Problem 12/28/2019 Mischer coronary artery Neur o, (disorder) 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 Peripheral Active Problem 12/28/2019 Mischer vascular disease Marilu ro, (disorder) [facility] LUMBAR DISC Active [facility] DISPLACEMENT [facility] SPIN STEN,LUMBR WO Active [facility] Medications Medication Details Route Status Patient Ordering Order Source Instructions Provider Date { Active [facility] (Methylprednisolone Instructions: 2014 Medical 4 MG Oral Tablet Take by mouth C enter [Medrol]) } Pack as directed on [Medrol Dosepak] package instructions. docusate sodium 100 100 mg = 1 Active [facility] mg oral capsule cap, PO, Q12H, [facility] 0 Center Refill(s) Pepcid Notes: (Same No Longer [facility] as: Pepcid) Active 2014 Medical [place] Saline Flush 0.9% Notes: (Same No Longer [facility] as: BD Active 2014 Medical Posiflush) Center Famotidine Notes: ([facility] 2014 [facility] Can be dilute Center in 5-10cc NS IVP: Slow IV push over at least 2 minutes. Docusate Notes: (Same No Longer [facility] as: Colace) Active 2014 Medical (Do Not Crush) Center sennosides, INTERMEDIATE Notes: (Same No Longer [facility] as: Senokot) Active 2014 Medical [place] Vancomycin 6.67 2001 mg: Inactive [place] MG/ML Injectable infuse over 2014 Med ical Solution 2.5 hours Center MEDICATION WASTE Product Size: 1000 mg Product Wasted: ___ mg Acetaminophen 325 MG Notes: Do not No Longer [facility] / Hydrocodone exceed 4gm/day Active 2014 Med ical Bitartrate 10 MG of Center Oral Tablet [Frankenmuth acetaminophen. 10/325] (Same as: Frank[place] 325/10) Dexamethasone Notes: No Longer [facility] Concentration: Active 2014 Medical 4mg/ml Center Metoclopramide Notes: (Same No Longer [facility] as: Reglan) Active [facility] Medical Smock Ondansetron Notes: (Same Inactive [facility] as as: Zofran) 2015 Medical MEDICATION Center WASTE Product Size: 4 mg Product Wasted: __0_ mg Flumazenil Notes: (Same [facility]: Rom[facility]) 2015 Medical Center Morphine Notes: (Same Inactive [facility] as:MORPhine 2014 Medical Sulfate) Center Naloxone Notes: Same as Inactive [facility] s Narcan 2014 [facility] Saline Flush 0.9% Notes: (Same No Longer [place] as: BD Active 2014 Medical Posiflush) Center Bisacodyl Notes: (Same No Longer [facility] As: Dulcolax, Active 2014 Medical Bisco-Lax) Center Morphine Notes: (Same No Longer [facility] as:MORPhine Active 2014 Medical Sulfate) Center Ondansetron Notes: (Same [place] Long[place] as: Zofran) Active 2014 Medical MEDICATION Center WASTE Product Size: 4 mg Product Wasted: _0__ mg Tramadol Notes: Not to No Longer [facility] s exceed Active 2014 Medical 400mg/day. Center (Same As: [facility]) Sodium Chloride 1,000 mL, No Longer [place] 0.154 MEQ/ML Rate: 50 Active 2014 Medical Injectable Solution ml/hr, Infuse Center over: 20 hr, Route: IV, Dosing Weight 72.273 kg, Total Volume: 1,000, Start date: 01/15/15 10:26:00, Duration: 30 day, Stop date: 02/14/15 10:25:00 Vancomycin 2001 mg: Inactive [facility] infuse over 2014 Medical 2.5 hours Center MEDICATION WASTE Product Size: 1000 mg Product Wasted: ___ mg vancomycin 2001 mg: No Longer [facility] infuse over Active 2014 Medical 2.5 hours Center MEDICATION WASTE Product Size: 1000 mg Product Wasted: ___ mg bupivacaine liposome Notes: (Same No Longer 12/27 [place] as: Exparel) Active 2014 Medical NOT FOR [...] [266 mg]) vancomycin 2001 mg: No Longer [facility] infuse over Active [address] [place] [address] 2.5 hours Center MEDICATION WASTE Product Size: 1000 mg Product Wasted: ___ mg fentaNYL 12 mcg/hr 1 patch, TOP, Active [facility] transdermal film, Q72H, 0 2014 Medica l extended release Refill(s) Cente r Acetaminophen 325 MG 1 tab, PO, Active [facility] / Hydrocodone PRN, PRN for 2015 Medic al Bitartrate 10 MG pain, # 24 Cent er Oral Tablet [[place] tab, 0 10/325] Refill(s) Tylenol PO, PRN, 0 Active [facility] Refill(s) [address] [place] [address] 0.98 ML Etanercept SUB-Q, QMon, 0 Active [facility] 50 MG/ML Prefilled Refill(s) [facility] Med ical Syringe [Enbrel] Smock Carbidopa 25 MG / 1 tab, PO, Active [facility] Levodopa 100 MG Oral TID, 0 2015 Med ical Tablet Refill(s) [place] Aspirin Low Dose 81 PO, Daily, 0 Active [facility] mg oral tablet Refill(s) [address] [place] [address] methotrexate 2.5 mg 20 mg = 8 tab, Active 01/12 [facility] oral tablet PO, QMon, 0 2015 Medical Refill(s) [place] Hydrochlorothiazide 1 tab, PO, Active 01/12/ [facility] [place] 12.5 MG / Losartan Daily, # 30 2015 edical Potassium 50 MG Oral tab, [address] Tablet Refill(s) Fenofibrate 160 MG 160 mg = 1 Active [facility] Oral Tablet tab, PO, 2015 Medical Daily, # 30 [place] tab, 0 Refill(s) Vitamin D3 2000 intl 2,000 IntlUnit Active 12/26 [facility] units oral capsule = 1 cap, PO, 2014 Medical Daily, 0 [place] Refill(s) Estrogens, 0.625 mg = 1 Active [facility] Conjugated (INTERMEDIATE) tab, PO, 2015 Medica l 0.625 MG Oral Tablet Daily, # 30 Center [Premarin] tab, 0 Refill(s) pravastatin 20 mg 20 mg = 1 tab, Active [place] oral tablet PO, Bedtime, # 2015 Medic [...] mg 20 mg = 1 tab, Active [place] oral enteric coated PO, Daily, 0 2014 Medical tablet Refill(s) Center clopidogrel 75 MG 75 mg = 1 tab, No Longer 01/12 [place] Oral Tablet [Plavix] PO, Daily, # Active 2014 Medical 30 tab, 0 Center Refill(s) Allergies, Adverse Reactions, Alerts Substance Category Reaction Severity Reaction Status Date Comments S ource type Reported sulfa Assertion Drug Active Data Mis her drugs<sup>1</ allergy 5 migrated N euro sup> from [facility] on 04/20/15. Originally documented as SULFA. erythromycin< Assertion Drug Active Data Mischer sup>2</sup> allergy 5 [facility]. Originally documented as ERYTHROMYCI N BASE. cefaclor<sup> Assertion Drug Active Data Mischer 3</sup> allergy 5 migrated [facility] 04/[facility]15. Originally documented as CECLOR. clarithromyci Assertion Drug Active Data Mischer n<sup>4</sup> allergy 5 migrated N euro [facility] 04/[facility]/15. Originally documented as BIAXIN. nitrofurantoi Assertion Drug Active Data Mischer n<sup>5</sup> allergy 5 [facility] N [facility] on 04/20/15. Originally documented as MACROBID. [...] Neuro erythromycin Assertion Drug Active [facility] Macrobid Assertion Drug Active Misch er allergy Neuro penicillins Assertion Drug Active Mn ehrve allergy Neuro sulfa drugs Assertion Drug Active [facility] Assertion Drug Active Mische r allergy Neuro Immunizations No Data Provided for This Section Results Order Name Results Value Reference Date Interpretation Comments Concetta rce Range CHEM PANEL eGFR 58 01/12/ <sup>1</sup>R Peter white 2014 formerly [facility] Medical Comment: The Center eGFR is calculated [...] PANEL Chloride Lvl 106 95 - 109 [place] [facility] CHEM PANEL CO2 28 24 - 32 2014 [facility] CHEM PANEL Calcium Lvl 8.8 8.5 - 10.5 as 2014 [facility] CHEM PANEL Creatinine 1.0 0.5 - 1.4 Lvl 2014 [facility] CHEM PANEL Sodium Lvl 142 135 - 145 2014 [facility] CHEM PANEL Potassium Lvl 3.9 3.5 - 5.1 xa2014 [facility] CHEM PANEL Glucose Lvl 80 70 - 99 01/12/ <sup>2</sup>I 2014 nterpretive Medical Data: Adult Center reference range values reflect the clinical guidelines
of the [place] [employer]. CHEM PANEL BUN 22 7 - 22 2014 [facility] CHEM PANEL AGAP 11.9 10.0 - 20.0 2014 [facility] HEMATOLOGY Eosinophils # 0.1 0.0 - 0.5 [place] 2014 [facility] HEMATOLOGY Monocytes # 0.7 0[place]0 [place] 0.8 [place] [facility] HEMATOLOGY Segs-Bands # 5.2 1.5 - 8.1 as 2014 [facility] HEMATOLOGY Lymphocytes # 2.2 1.0 - 5.5 2014 [facility] HEMATOLOGY Basophils 0.6 0.0 - 1.0 2014 [facility] HEMATOLOGY Eosinophils 1.4 0[place]0 - 4.0 [place] [facility] HEMATOLOGY Lymphocytes 26.4 20.0 - 40.0 xa2014 [facility] HEMATOLOGY Segs 62.7 45.0 - 75.0 2014 [facility] HEMATOLOGY Monocytes 8.9 2.0 - 12.0 2014 [facility] HEMATOLOGY MPV 9.7 7.4 - 10.4 2014 [facility] HEMATOLOGY Platelet 209 133 - 450 2014 [facility] HEMATOLOGY RDW 16.0 11.5 - 14.5 2014 [facility] HEMATOLOGY MCH 32.4 27.0 - 31.[address] HEMATOLOGY Hct 40.6 36.0 - 48.[address] HEMATOLOGY MCV 97.6 80.0 - 98.[address] HEMATOLOGY MCHC 33.2 32.0 - 36.[address] HEMATOLOGY Hgb 13.5 12.0 - 16.[address] HEMATOLOGY RBC 4.16 4.20 - 5.[address] HEMATOLOGY WBC 8.3 3.7 - 10.[address] Pathology Reports No Data Provided for This Section Diagnostic Reports No Data Provided for This Section Consultation Notes No Data Provided for This Section Discharge Summaries No Data Provided for This Section History and Physicals No Data Provided for This Section Vital Signs Vital Sign Value Date Comments Source Heart Rate 72 01/16/2015 [facility] Temperature Oral (F) 97.9 F 01/16/2015 [facility] Systolic (mm Hg) 138 01/16/2015 [facility] Diastolic (mm Hg) 73 01/16/2015 [facility] Respitory Rate 18 01/16/2015 [facility] Respitory Rate 17 01/16/2015 [facility] Systolic (mm Hg) 120 [facility] Diastolic (mm Hg) 75 01/16/2015 [facility] Temperature Oral (F) 97.9 F 01/16/2015 [facility] Heart Rate 88 01/16/2015 [facility] Systolic (mm Hg) 127 01/16/2015 [facility] Diastolic (mm Hg) 70 01/16/2015 [facility] Respitory Rate 18 01/16/2015 [facility] Heart Rate 90 01/16/2015 [facility] Temperature Oral (F) 97.6 F 01/16/2015 [facility] BMI Calculated 28.22 01/12/2015 [facility] Weight 72.273 01/12/2015 [facility] Height 160.02 cm 01/12/2015 [facility] Encounters Location Location Encounter Encounter Reason Attending ADM IN Stat Source Details Type Number For Provider Date Date Visit [facility] [id number] Elliot Granados 01/15 01/16 [facility] Out[facility] /2014 [facility] Outpatient [id number] [facility] [facility]/25 [facility] [place] [facility] [id number] Arsh 12/25 12/26 [facility] [place]2019 [place] Procedures Procedure Code Date Perfomer Comments Source Ankle joint [id number] [facility] Appendectomy [id number] [facility] Carotid [id number] [facility]arte[facility] Hysterectomy [id number] [facility] Stent placement [id number] [facility] Tonsillectomy [id number] [facility] Assessment and Plan No Data Provided for This Section Plan of Care No Data Provided for This Section Social History Social History Date Source Social History TypeResponse 01/15/2015 [facility] Smoking Status Current every day smoker; Exposure to To bacco Smoke None; Cigarette Smoking Last 365 Days Yes; Reg Smoking Cessation Counseling Yes Social History TypeResponse 01/15/2015 [facility] Smoking Status Current every day smoker; Exposure to To bacco Smoke None; Cigarette Smoking Last 365 Days Yes; Reg Smoking Cessation Counseling Yes entered on: 01/15/15 Family History No Data Provided for This Section Advance Directives No Data Provided for This Section Functional Status No Data Provided for This Section
--- OUTSIDE RECORDS SUMMARY | 2020-08-12 08:57 | XMS REPORT | Continuity of Care Document ---
:1945 Author Organization [facility] t Address [address] [place] [address] Care Team Providers Name Role Phone Nik Jimenes Attending Clinician Paulette Granados Attending Clinician Paulette Granados Admitting Clinician Problems Condition Condition Condition Status Onset Resolution Last Treating Co mments Source Name Details Category Date Date Treatment Clinician Date LUMBAR Diagnosis Active 2015-01-06 Mem oria PAIN - 11:32:00 l LUMBAR 00:00: [place] PAIN 00 Active 01/06/2015 [facility] LEFT Diagnosis Active 2015-01-16 Mem oria PARACENTRA - 07:05:00 l L HERNITED LEFT 00:00: Tian n DISC AND PARACENTRA 00 STENO L HERNITED DISC AND STENO Active 01/06/2015 [facility] Low back Problem Active 2019-12-28 Mem oria pain 5- 23:22:16 l (disorder) Low back 00:00: He rmann pain 00 (disorder) Active 01/05/2015 Problem 12/28/2019 Data migrated from [email or web address] on 04/21/15. [facility] Lumbar Problem Active 2019-12-28 Memor ia radiculopa - 23:22:16 l thy Lumbar 00:00: [place] (disorder) radiculopa 00 thy (disorder) Active 01/05/2015 Problem 12/28/2019 Data migrated from [email or web address] on 04/21/15. 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 [facility] Tobacco Problem Active 2019-12-28 Ankit kirstie dependence 01-05 23:22:16 l syndrome Tobacco 00:00: Ginger nn (disorder) dependence 00 syndrome (disorder) Active 01/05/2015 Problem 12/28/2019 Data migrated from [email or web address] on 04/21/15. 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 (disorder) rosis of coronary artery (disorder) Active Problem 12/28/2019 [facility] Chronic Problem Active 2019-12-28 Ankit kirstie obstructiv 23:22:16 l e lung Chronic [place] disease obstructiv (disorder) e lung disease (disorder) Active Problem 12/28/2019 [facility] Hand pain Problem Active 2019-12-28 Me moria (finding) 23:22:16 l Hand [place] pain (finding) Active Problem 12/28/2019 [facility] Hyperlipid Problem Active 2019-12-28 M emoria emia 23:22:16 l (disorder) Tian n Hyperlipid emia (disorder) Active Problem 12/28/2019 [facility] Hypertensi Problem Active 2019-12-28 M emoria ve 23:22:16 l disorder, [place] systemic Hypertensi arterial ve (disorder) disorder, systemic arterial (disorder) Active Problem 12/28/2019 [facility] Obstructiv Problem Active 2019-12-28 M emoria e sleep 23:22:16 l apnea [place] syndrome Obstructiv (disorder) e sleep apnea syndrome (disorder) Active Problem 12/28/2019 [facility] 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:22:16 l arthropath Tian n 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) Active Problem 12/28/2019 [facility] Peripheral Problem Active 2019-12-28 M emoria vascular 23:22:16 l disease [place] (disorder) Peripheral vascular disease (disorder) Active Problem 12/28/2019 [facility] LUMBAR Diagnosis Active 2015-01-16 Mem oria DISC 07:05:00 l DISPLACEME LUMBAR Herm andrea NT DISC DISPLACEME NT Active [facility] SPIN Diagnosis Active 2015-01-16 Mem oria STEN,LUMBR 07:05:00 l WO SANDY SPIN [place] STEN,LUMBR WO SANDY Active [facility] Allergies, Adverse Reactions, Alerts Allergy Allergy Status Severity Reaction(s) Onset Inactive Treating Comm ents Source Name Type Date Date Clinician sulfa sulfa Active Memoria drugs<steele drugs<steele 5-11 l p>1</sup p>1</sup 05:00: Tian n > > 00 elena parker Active Memori a omycin<s omycin<s 5-11 l up>4</steele up>4</steele 05:00: Tian n p> p> 00 penicill penicill Active Memori a in V in V 5-11 l potassiu potassiu 05:00: Tian early m<sup>8< m<sup>8< 00 /sup> /sup> PCN Adverse Active rash [facility] Talwin Adverse Active Anxiety [facility] Nitrofur Adverse [facility] rash [facility] Biaxin Adverse Active rash [facility] Erythrom Adverse Active cold feeling [facility] Reaction in body; [facility] Adhesive Adhesive Active Memori a l [place] Bactrim Bactrim Active Memoria l [place] Ceclor Ceclor Active Memoria l [place] codeine codeine Active Memoria l [place] erythrom erythrom Active Memori a ycin ycin l [place] Macrobid Macrobid Active Memori a l [place] penicill penicill Active Memori a ins ins l [place] sulfa sulfa Active Memoria drugs drugs l [place] Isaias Esparza Active Memoria l [place] Social History Smoking Status Start Date Stop Date Source Social History 2015-01-15 11:57:01 [facility] palomo Medications Ordered Filled Start Stop Current Ordering Indication Dosage Frequency Signature Comments Components Source Medication Medication Date Date Medication? Clinician (SIG) Name Name { Yes Special Memoria (Methylpred 5-22 Instructio l nisolone 4 12:54: ns: Take Her palomo MG Oral 00 by mouth Tablet as [Medrol]) } directed Pack on package [Medrol instructio Dosepak] ns. docusate Yes 100 mg = 1 Mem oria sodium 100 5-22 cap, PO, l mg oral 12:54: Q12H, # 50 Herm andrea capsule 00 cap, 0 Refill(s) { Yes Special Memoria (Methylpred 5-22 Instructio l nisolone 4 12:54: ns: Take Her palomo MG Oral 00 by mouth Tablet as [Medrol]) } directed Pack on package [Medrol instructio Dosepak] ns. docusate Yes 100 mg = 1 Mem oria sodium 100 5-22 cap, PO, l mg oral 12:54: Q12H, # 50 Herm andrea capsule 00 cap, 0 Refill(s) Pepcid No Notes: Memoria 5-22 (Same as: l 02:00: Pepcid) [place] 00 Saline No Notes: Memoria Flush 0.9% 5-22 (Same as: l 02:00: BD [place] 00 Posiflush) Famotidine No Notes: Memor ia 5-22 (Same as: l 02:00: Pepcid) [place] 00 Can be dilute in 5-10cc NS IVP: Slow IV push over at least 2 minutes. Docusate No Notes: Memoria 5-22 (Same as: l 02:00: Colace) [place] 00 (Do Not Crush) sennosides, No Notes: Ankit kirstie INTERMEDIATE 5-22 (Same as: l 02:00: Senokot) [place] Pepcid No Notes: Memoria 5-22 (Same as: l 02:00: Pepcid) [place] Saline No Notes: Memoria Flush 0.9% 5-22 (Same as: l 02:00: BD [place] Posiflush) Famotidine No Notes: Memor ia 5-22 (Same as: l 02:00: Pepcid) [place] 00 Can be dilute in 5-10cc NS IVP: Slow IV push over at least 2 minutes. Docusate No Notes: Memoria 5-22 (Same as: l 02:00: Colace) [place] (Do Not Crush) sennosides, No Notes: Ankit kirstie INTERMEDIATE 5-22 (Same as: l 02:00: Senokot) [place] Vancomycin No 2001 mg: Me moria 6.67 MG/ML 5-22 infuse l Injectable 01:30: over 2.5 Her palomo Solution 00 hours MEDICATION WASTE Product Size: 1000 mg Product Wasted: ___ mg Vancomycin No 2001 mg: Me moria 6.67 MG/ML 5-22 infuse l Injectable 01:30: over 2.5 Her palomo Solution 00 hours MEDICATION WASTE Product Size: 1000 mg Product Wasted: ___ mg Acetaminoph No Notes: Do M emoria en 325 MG / 5-21 not exceed l Hydrocodone 21:00: 4gm/day of [place] Bitartrate acetaminop 10 MG Oral hen. Tablet (Same as: [[place] 10/325] 325/10) Acetaminoph No Notes: Do M emoria en 325 MG / 5-21 not exceed l Hydrocodone 21:00: 4gm/day of [place] Bitartrate acetaminop 10 MG Oral hen. Tablet (Same as: [[place] 10/325] 325/10) Dexamethaso No Notes: Ankit kirstie ne 5-21 Concentrat l 17:00: ion: [place] 4mg/ml Metoclopram No Notes: Ankit kirstie zena 5-21 (Same as: l 17:00: Reglan) Dexamethaso No Notes: Ankit kirstie ne 5-21 Concentrat l 17:00: ion: [place] 00 4mg/ml Metoclopram No Notes: Ankit kirstie zena 5-21 (Same as: l 17:00: Reglan) Ondansetron No Notes: Ankit kirstie 5-21 (Same as: l 15:41: Zofran) [place] 00 MEDICATION WASTE Product Size: 4 mg Product Wasted: __0_ mg Flumazenil No Notes: Memor ia 5-21 (Same as: l 15:41: Romazicon) Morphine No Notes: Memoria 5-21 (Same l 15:41: as:MORPhin [place] 00 e Sulfate) Naloxone No Notes: Memoria 5-21 Same as l 15:41: Narcan Ondansetron No Notes: Ankit kirstie 5-21 (Same as: l 15:41: Zofran) MEDICATION WASTE Product Size: 4 mg Product Wasted: __0_ mg Flumazenil No Notes: Memor ia 5-21 (Same as: l 15:41: Romazicon) Morphine No Notes: Memoria 5-21 (Same l 15:41: as:MORPhin [place] 00 e Sulfate) Naloxone No Notes: Memoria 5-21 Same as l 15:41: Narcan Saline No Notes: Memoria Flush 0.9% 5-21 (Same as: l 15:26: BD [place] 00 Posiflush) Bisacodyl No Notes: Memori a 5-21 (Same As: l 15:26: Dulcolax, [place] Bisco-Lax) Morphine No Notes: Memoria 5-21 (Same l 15:26: as:MORPhin [place] 00 e Sulfate) Ondansetron No Notes: Ankit kirstie 5-21 (Same as: l 15:26: Zofran) [place] 00 MEDICATION WASTE Product Size: 4 mg Product Wasted: _0__ mg Tramadol No Notes: Not Mem oria 5-21 to exceed l 15:26: 400mg/day. [place] 00 (Same As: Ultram) Sodium No 1,000 mL, Memori a Chloride 5-21 Rate: 50 l 0.154 15:26: ml/hr, [place] MEQ/ML 00 Infuse Injectable over: 20 Solution hr, Route: IV, Dosing Weight 72.273 kg, Total Volume: 1,000, Start date: 01/15/15 10:26:00, Duration: 30 day, Stop date: 02/14/15 10:25:00 Saline No Notes: Memoria Flush 0.9% 5-21 (Same as: l 15:26: BD [place] 00 Posiflush) Bisacodyl No Notes: Memori a 5-21 (Same As: l 15:26: Dulcolax, [place] 00 Bisco-Lax) Morphine No Notes: Memoria 5-21 (Same l 15:26: as:MORPhin [place] 00 e Sulfate) Ondansetron No Notes: Ankit kirstie 5-21 (Same as: l 15:26: Zofran) [place] 00 MEDICATION WASTE Product Size: 4 mg Product Wasted: _0__ mg Tramadol No Notes: Not Mem oria 5-21 to exceed l 15:26: 400mg/day. [place] 00 (Same As: Ultram) Sodium No 1,000 mL, Memori a Chloride 5-21 Rate: 50 l 0.154 15:26: ml/hr, [place] MEQ/ML 00 Infuse Injectable over: 20 Solution hr, Route: IV, Dosing Weight 72.273 kg, Total Volume: 1,000, Start date: 01/15/15 10:26:00, Duration: 30 day, Stop date: 02/14/15 10:25:00 Vancomycin No 2001 mg: Me moria 5-21 infuse l 13:47: over 2.5 [place] 00 hours MEDICATION WASTE Product Size: 1000 mg Product Wasted: ___ mg Vancomycin 2014- No 2000 mg: Me moria 5-21 infuse l 13:47: over 2.5 [place] 00 hours MEDICATION WASTE Product Size: 1000 mg Product Wasted: ___ mg vancomycin 2014- No 2000 mg: Me moria 5-21 infuse l 13:00: over 2.5 [place] 00 hours MEDICATION WASTE Product Size: 1000 mg Product Wasted: ___ mg vancomycin 2014- No 2001 mg: Me moria 5-21 infuse l 13:00: over 2.5 [place] 00 hours MEDICATION WASTE Product Size: 1000 mg Product Wasted: ___ mg bupivacaine 2014- No Notes: Ankit kirstie liposome 5-21 (Same as: l 04:00: Exparel) [place] 00 NOT FOR IV use Postoperat sangita analgesia: Infiltrati [...] mL [266 mg]) vancomycin No 2000 mg: Me moria 5-21 infuse l 04:00: over 2.5 [place] 00 hours MEDICATION WASTE Product Size: 1000 mg Product Wasted: ___ mg bupivacaine 2014-0 No Notes: Ankit kirstie liposome 5-21 (Same as: l 04:00: Exparel) [place] 00 NOT FOR IV use Postoperat sangita analgesia: Infiltrati [...] = 30 mL [266 mg]) vancomycin No 2001 mg: Me moria 5-21 infuse l 04:00: over 2.5 [place] 00 hours MEDICATION WASTE Product Size: 1000 mg Product Wasted: ___ mg fentaNYL Yes 1 patch, Me moria mcg/hr 5-18 TOP, Q72H, l transdermal 20:29: 0 Tian n film, 00 Refill(s) extended release Acetaminoph Yes 1 tab, PO, Memoria en 325 MG / 5-18 PRN, PRN l Hydrocodone 20:29: for pain, H ermann Bitartrate 00 # 24 tab, 10 MG Oral 0 Tablet Refill(s) [[place] 10/325] fentaNYL Yes 1 patch, Me moria mcg/hr 5-18 TOP, Q72H, l transdermal 20:29: 0 Tian n film, 00 Refill(s) extended release Acetaminoph Yes 1 tab, PO, Memoria en 325 MG / 5-18 PRN, PRN l Hydrocodone 20:29: for pain, H ermann Bitartrate 00 # 24 tab, 10 MG Oral 0 Tablet Refill(s) [[place] 10/325] Tylenol Yes PO, PRN, 0 Ankit kirstie 5-18 Refill(s) l 20:28: [place] 00 Tylenol Yes PO, PRN, 0 Ankit kirstie 5-18 Refill(s) l 20:28: [place] 00 0.98 ML Yes SUB-Q, Memoria Etanercept 5-18 QMon, 0 l 50 MG/ML 20:27: Refill(s) Herm andrea Prefilled 00 Syringe [Enbrel] Carbidopa Yes 1 tab, PO, Me moria 25 MG / 5-18 TID, 0 l Levodopa 20:27: Refill(s) Herm andrea 100 MG Oral 00 Tablet 0.98 ML Yes SUB-Q, Memoria Etanercept 5-18 QMon, 0 l 50 MG/ML 20:27: Refill(s) Herm andrea Prefilled 00 Syringe [Enbrel] Carbidopa Yes 1 tab, PO, Me moria 25 MG / 5-18 TID, 0 l Levodopa 20:27: Refill(s) Herm andrea 100 MG Oral 00 Tablet Aspirin Low Yes PO, Daily, Memoria Dose 81 mg 5-18 0 l oral tablet 20:26: Refill(s) H ermann methotrexat Yes 20 mg = 8 M emoria e 2.5 mg 5-18 tab, PO, l oral tablet 20:26: QMon, 0 Her palomo 00 Refill(s) Hydrochloro Yes 1 tab, PO, Memoria thiazide 5-18 Daily, # l 12.5 MG / 20:26: 30 tab, 0 Her [place] Losartan 00 Refill(s) Potassium 50 MG Oral Tablet Aspirin Low Yes PO, Daily, Memoria Dose 81 mg 5-18 0 l oral tablet 20:26: Refill(s) H erm methotrexat Yes 20 mg = 8 M emoria e 2.5 mg 5-18 tab, PO, l oral tablet 20:26: QMon, 0 Her palomo 00 Refill(s) Hydrochloro Yes 1 tab, PO, Memoria thiazide 5-18 Daily, # l 12.5 MG / 20:26: 30 tab, 0 Her pal[place] Losartan 00 Refill(s) Potassium 50 MG Oral Tablet Fenofibrate Yes 160 mg = 1 Memoria 160 MG Oral 5-18 tab, PO, l Tablet 20:25: Daily, # [place] 00 30 tab, 0 Refill(s) Vitamin D3 Yes 2,000 Memori a 2000 intl 5-18 IntlUnit = l units oral 20:25: 1 cap, PO, H ermann capsule 00 Daily, 0 Refill(s) Estrogens, Yes 0.625 mg = M emoria Conjugated 5-18 1 tab, PO, l (INTERMEDIATE) 0.625 20:25: Daily, # He rmann MG Oral 00 30 tab, 0 Tablet Refill(s) [Premarin] pravastatin Yes 20 mg = 1 M emoria 20 mg oral 5-18 tab, PO, l tablet 20:25: Bedtime, # Ginger nn 00 30 tab, 0 Refill(s) Fenofibrate Yes 160 mg = 1 Memoria 160 MG Oral 5-18 tab, PO, l Tablet 20:25: Daily, # [place] 00 30 tab, 0 Refill(s) Vitamin D3 Yes 2,000 Memori a 2000 intl 5-18 IntlUnit = l units oral 20:25: 1 cap, PO, H ermann capsule 00 Daily, 0 Refill(s) Estrogens, Yes 0.625 mg = M emoria Conjugated 5-18 1 tab, PO, l (INTERMEDIATE) 0.625 20:25: Daily, # He rmann MG Oral 00 30 tab, 0 Tablet Refill(s) [Premarin] pravastatin Yes 20 mg = 1 M emoria 20 mg oral 5-18 tab, PO, l tablet 20:25: Bedtime, # Ginger nn 00 30 tab, 0 Refill(s) Folic Acid Yes 1 mg = 1 Mem oria 1 MG Oral 5-18 tab, PO, l Tablet 20:24: Daily, # [place] 00 30 tab, 0 Refill(s) metoprolol Yes 100 mg = 1 M emoria tartrate 5-18 tab, PO, l 100 mg oral 20:24: BID, # 180 [place] tablet 00 tab, 0 Refill(s) Potassium Yes 10 mEq = 1 Me moria Chloride 10 5-18 tab, PO, l MEQ 20:24: BID, 0 [place] Extended 00 Refill(s) Release Tablet Folic Acid Yes 1 mg = 1 Mem oria 1 MG Oral 5-18 tab, PO, l Tablet 20:24: Daily, # [place] 00 30 tab, 0 Refill(s) metoprolol Yes 100 mg = 1 M emoria tartrate 5-18 tab, PO, l 100 mg oral 20:24: BID, # 180 [place] tablet 00 tab, 0 Refill(s) Potassium Yes 10 mEq = 1 Me moria Chloride 10 5-18 tab, PO, l MEQ 20:24: BID, 0 [place] Extended 00 Refill(s) Release Tablet omeprazole Yes 20 mg = 1 Me moria 20 mg oral 5-18 tab, PO, l enteric 20:23: Daily, 0 Tian n coated 00 Refill(s) tablet clopidogrel No 75 mg = 1 M emoria 75 MG Oral 5-18 tab, PO, l Tablet 20:23: Daily, # [place] [Plavix] 00 30 tab, 0 Refill(s) omeprazole Yes 20 mg = 1 Me moria 20 mg oral 5-18 tab, PO, l enteric 20:23: Daily, 0 Tian n coated 00 Refill(s) tablet clopidogrel No 75 mg = 1 M emoria 75 MG Oral 5-18 tab, PO, l Tablet 20:23: Daily, # [place] [Plavix] 00 30 tab, 0 Refill(s) Tylenol PM Tylenol PM Yes Gwen [address] [facility] Extra Extra [place] at bedtime [facility] St[facility] Strength as needed Me moria l [facility] ent [facility] Enbrel Enbrel Yes Gwen [address] [facility] SureClick SureClick [place] [facility] Aspirin Aspirin Yes Gwen [address] [facility] [address] Adult Low Adult Low [place] [facility] - Dose Dose Memoria l [facility] Plavix Plavix Yes Gwen [address] [facility] [place] [facility] Estradiol Estradiol Yes Gwen TAKE [address] [place] TABLET BY [facility] - MOUTH Memoria EVERY DAY l [facility] Pravastatin Pravastatin Yes Gwen TAKE [address] [facility] Sodium Sodium [place] TABLET BY [facility] - MOUTH Memoria EVERY DAY l [facility] Losartan Losartan Yes Gwen [address] Potassium-H Potassium-H [place] [facility] - CTZ CTZ [facility] l [facility] ent [facility] Omeprazole Omeprazole Yes Gwen [address] [facility] [place] [facility] Sinemet Sinemet Yes Gwen take [address] [facility] [place] tablet by [facility] - mouth Memoria twice a l day [facility] Ranexa Ranexa Yes Gwen [address] [facility] [place] [facility] Vitamin D3 Vitamin D3 Yes Gwen [address] [facility] [place] [facility] Clonidine Clonidine Yes Gwen [address] HCl HCl [place] at bed[facility] Metoprolol Metoprolol Yes Gwen [address] Tartrate Tartrate [place] with food [facility] - [facility] l [facility] ent Clinics Klor-Con 10 Klor-Con 10 Yes Gwen TAKE [address] [facility] [place] TABLETS BY [facility] - MOUTH Memoria EVERY DAY l [facility] Furosemide Furosemide Yes Gwen TAKE [address] [facility] [place] TABLET BY [facility] - MOUTH Memoria EVERY DAY l [facility] Folic Acid Folic Acid Yes Gwen TAKE [address] [facility] [place] TABLET BY [facility] - MOUTH Memoria EVERY DAY l [facility] ent [facility] Carbidopa-L Carbidopa-L Yes Gwen TAKE [address] [facility] evodopa evodopa [place] TABLET BY [place] [facility] - MOUTH Memoria TWICE A l DAY [facility] ent Clinics Norvasc Norvasc Yes Gwen [address] [facility] [place] [facility] Immunizations Ordered Filled Immunization Date Status Comments Sourc e Immunization Name Name FLUZONE HIGH DOSE FLUZONE HIGH DOSE 2019-06-[address] [facility] - OVER 65 OVER 65 00:00:00 [facility] FLUZONE HIGH DOSE FLUZONE HIGH DOSE 2018-10-[address] [facility] - OVER 65 OVER 65 00:00:00 [facility] PNEUMAVAX [id number] PNEUMAVAX [id number] 2018-05-[address] [facility] [place] [facility] - 00:00:00 [facility] Vital Signs Vital Name Observation Time Observation Value Comments Source Heart Rate 2015-01-16 12:29:00 [facility] [place] Temperature Oral (F) 2015-01-16 12:29:00 97.9 F [facility] [place] Systolic (mm Hg) 2015-01-16 12:29:00 Ankit rial [place] Diastolic (mm Hg) 2015-01-16 12:29:00 Mem orial [place] Respitory Rate 2015-01-16 12:29:00 Memori al [place] Respitory Rate 2015-01-16 09:00:00 Memori al [place] Systolic (mm Hg) 2015-01-16 09:00:00 Ankit rial [place] Diastolic (mm Hg) 2015-01-16 09:00:00 Mem orial [place] Temperature Oral (F) 2015-01-16 09:00:00 [facility] 2015-01-16 09:00:00 [facility] [place] Systolic (mm Hg) 2015-01-16 05:00:00 Ankit rial [place] Diastolic (mm Hg) 2015-01-16 05:00:00 Imer martinez [place] Respitory Rate 2015-01-16 05:00:00 Ethel schreiber [place] Heart Rate 2015-01-16 05:00:00 Karli [place] Temperature Oral (F) 2015-01-16 05:00:00 97.6 F [facility] [place] BMI Calculated 2015-01-12 20:07:00 Ethel schreiber [place] Weight 2015-01-12 20:07:00 [facility] [place] Height 2015-01-12 20:07:00 160.02 cm [facility] [place] Procedures Procedure Date / Time Performed Performing Clinician Sourc e Ankle joint operations [facility] [place] Appendectomy [facility] [place] Carotid endarterectomy [facility] [place] Hysterectomy [facility] [place] Stent placement [facility] [place] Tonsillectomy [facility] [place] Encounters Start End Encounter Admission Attending Care Care Encounter Source Date/Time Date/Time Type Type Clinicians Facility Department ID 2020-05-29 2020-05-29 Outpatient [facility] [id number] [facility]00 [facility] Outpat[facility] ent Clinics 2020-05-06 2020-05-06 [facility] [id number] [address] 13:00:00 13:00:00 [facility] Medicine Medicine Outpati ent [facility] 2020-04-27 2020-04-27 [facility] [id number] [facility] [address] 09:58:00 09:58:00 [facility] Medicine Outpati ent [facility] 2019-12-26 2019-12-26 Outpatient LUZ ELENA JimenesSCHER [id number] 08:15:00 23:59:59 Oren 00 Nik 2019-12-26 2019-12-26 Outpatient LUZ ELENA JimenesSCHER [id number] 08:15:00 23:59:59 Oren 00 [facility] 2019-12-06 2019-12-06 [facility] [id number] 11:42:00 11:42:00 [facility] Medicine Outpati ent Clinics 2019-11-04 2019-11-04 [facility] [id number] [facility] 13:00:00 13:00:00 t [facility] Medicine Medicine Outpati ent Clinics 2019-09-26 2019-09-26 [facility] [id number] 10:09:00 10:09:[address] [facility] Medicine Outpati ent Clinics 2019-09-17 2019-09-17 [facility] [id number] 11:40:00 11:40:00 t [facility] Medicine Medicine Outpati ent Clinics 2019-07-18 2019-07-18 [facility] [id number] [address] 11:40:00 11:40:[address] [facility] Medicine Outpati ent Clinics 2019-06-25 2019-06-25 [facility] [id number] 11:55:00 11:55:[address] [facility] Medicine Outpati ent Clinics 2019-06-20 2019-06-20 [facility] [id number] 08:20:00 08:20:00 t [facility] Medicine Medicine Outpati ent Clinics 2019-06-13 2019-06-13 [facility] [id number] 11:02:00 11:02:[address] [facility] Medicine Outpati ent Clinics 2019-05-13 2019-05-13 [facility] [id number] 15:13:00 15:13:00 t [facility] Medicine Medicine Outpati ent Clinics 2019-05-06 2019-05-06 [facility] [id number] 13:00:00 13:00:00 t [facility] Medicine Medicine Outpati ent Clinics 2018-10-29 2018-10-29 [facility] [id number] 13:00:00 13:00:00 t [facility] Medicine Medicine Outpati ent Clinics 2018-10-23 2018-10-23 [facility] [id number] 11:31:00 11:31:00 t [facility] Medicine Medicine Outpati ent Clinics 2018-09-14 2018-09-14 [facility] [id number] 08:38:00 08:38:[address] [facility] Medicine Outpati ent Clinics 2018-08-15 2018-08-15 [facility] [id number] 08:38:00 08:38:00 t [facility] Medicine l Medicine Outpati ent Clinics 2018-08-09 2018-08-09 [facility] [id number] 12:00:00 12:00:00 t [facility] Clinic l Outpati ent Clinics 2018-06-01 2018-06-01 [facility] [id number] [facility] 16:54:00 16:54:[address] [facility] Medicine Outpati ent Clinics 2018-05-30 2018-05-30 [facility] [id number] [facility] 13:30:00 13:30:00 t [facility] l Medicine Outpati ent Clinics 2018-05-01 2018-05-01 [facility] [id number] [facility] 09:00:00 09:00:00 t [facility] l Medicine Outpati ent Clinics 2018-04-18 2018-04-18 [facility] [id number] [facility] 15:01:00 15:01:00 t [facility] Medicine l Medicine Outpati ent Clinics 2018-04-16 2018-04-16 [facility] [id number] [facility] 15:05:00 15:05:00 t [facility] Clinic l Outpati ent Clinics 2018-01-16 2018-01-16 [facility] [id number] [facility] 13:00:00 13:00:00 t [facility] Medicine l Medicine Outpati ent Clinics 2015-01-15 2015-01-16 Outpatient Elliot Granados [place] [id number] 11:00:00 10:40:00 Hwan 00 2015-01-15 2015-01-16 Outpatient Elliot Granados [facility] [id number] 11:00:00 10:40:00 Hwan 00 Results Test Description Test Time Test Comments Results Result Comments Source CHEM PANEL 2015-01-12 58 [facility] CHEM PANEL 2015-01-12 106 [facility] 22:14:00 CHEM PANEL 2015-01-12 28 [facility] 22:14:00 CHEM PANEL 2015-01-12 8.8 [facility] 22:14:00 CHEM PANEL 2015-01-12 1.0 [facility] 22:14:00 CHEM PANEL 2015-01-12 142 [facility] 22:14:00 CHEM PANEL 2015-01-12 3.9 [facility] 22:14:00 CHEM PANEL 2015-01-12 80 [facility] 22:14:00 CHEM PANEL 2015-01-12 22 [facility] 22:14:00 CHEM PANEL 2015-01-12 11.9 [facility] 22:14:00 HEMATOLOGY 2015-01-12 0.1 [facility] 22:14:00 HEMATOLOGY 2015-01-12 0.7 [facility] 22:14:00 HEMATOLOGY 2015-01-12 5.2 [facility] 22:14:00 HEMATOLOGY 2015-01-12 2.2 [facility] 22:14:00 HEMATOLOGY 2015-01-12 0.6 [facility] 22:14:00 HEMATOLOGY 2015-01-12 1.4 [facility] 22:14:00 HEMATOLOGY 2015-01-12 26.4 [facility] 22:14:00 HEMATOLOGY 2015-01-12 62.7 [facility] 22[facility]14:00 HEMATOLOGY 2015-01-12 8.9 [facility] 22:14:00 HEMATOLOGY 2015-01-12 9.7 [facility] 22:14:00 HEMATOLOGY 2015-01-12 209 [facility] 22:14:00 HEMATOLOGY 2015-01-12 16.0 [facility] 22:14:00 HEMATOLOGY 2015-01-12 22:14:00 Test Item Value Reference Range Interpretation Comme nts MCH (test code = MCH) 32.4 pg 27.0-31.0 [facility] UferfeyNKMCTWHHGF3683-39-04 22:14:0040.6[facility] 2015-01-12 22:14:0097.6[facility] DeewazkACDOYECXWB1233-12-60 22:14:0033.2[facility] WuwogzlORYDRVHRIU9665-72-00 22:14:0013.5[facility] CmlzhxbOZWFMMGSYE6415-65-37 22:14:004.16[facility] BebwepzSQJMQFUGAO8148-01-21 22:14:008.3[facility] HermannCHEM JYNIW5362-74-02 22:14:0058[facility]annCHEM ZFLSP1468-71-08 22:14:85514 [facility]annCHEM VWQEM8475-24-07 22:14:0028[facility]ann[facility]M PANEL 2015-01-12 22:14:008.8[facility] HermannCHEM XDHOO6896-90-78 22:14:001.0[facility] HermannCHEM USOWD4517-19-19 22:14:54015Hvphmkfi HermannCHEM XIGRS7399-40-05 22:14:003.9[facility] HermannCHEM JHLDG3723-64-34 22:14:0080[facility] HermannCHEM JLSWJ0381-42-04 22:14:0022[facility] HermannCHEM BRFFV5934-86-35 22:14:0011.9 [facility] AanqxtcYRVZBTCHKG9982-73-68 22:14:000.1[facility]annHEMATOLOGY 2015-01-12 22:14:000.7[facility] JessttjWDMNEXKIWE7664-12-55 22:14:005.2[facility] DwnhjfwRFCFXRNRUU2594-54-07 22:14:002.2[facility] XcpkoxuSRPASMJXXZ4007-01-28 22:14:000.6[facility] BvszzbqBSQNRXLBEG5318-15-50 22:14:001.4[facility] DYYYTTDZXH6911-11-82 22:14:0026.4[facility] SlevgvcTQXJFKGBVJ4941-40-26 22:14:00 62.7[facility] NovacabIWXQCVXPNS2953-50-23 22:14:008.9[facility]annHEMATOLOGY 2015-01-12 22:14:009.7[facility] MsunoejVYVZBMKLJP0966-46-40 22:14:39908Svnjgosz MdqmeanUJQQFMXBPF9215-85-08 22:14:0016.0[facility] IglwgruTNCLTTGOJZ2673-45-62 22:14:00 Test Item Value Reference Range Interpretation Comments MCH (test code = MCH) 32.4 pg 27.0-31.0 [facility] NagrlnxZBPYROQGJK2421-13-68 22:14:0040.6[facility]ann[facility]MATOLOGY 2015-01-12 22:14:0097.6[facility] QnjdojuNNADSYLRFC6904-20-82 22:14:0033.2[facility] HyviyyeQICIURECHP7908-03-03 22:14:0013.5[facility] CcmmnubGBSDHPWGOQ7555-76-41 22:14:004.16[facility] MrgeydzTHBPJQYSZO0994-21-25 22:14:008.3[facility]
[2020-08-12] MEDS ORDERED: Ringers Lactate 1,000 ML IV ONE (09:19)
[2020-08-12] MEDS ORDERED: ROCURONIUM 50 MG/5 ML VIAL IV ONE (09:54)
[2020-08-12] MEDS ORDERED: propofoL 200 MG/20 ML VIAL IV ONE (09:54)
[2020-08-12] MEDS ORDERED: LIDOCAINE 2% MPF 5 ML VIAL ONE (09:54)
[2020-08-12] MEDS ORDERED: ONDANSETRON 4 MG/2 ML VIAL ONE (09:54)
[2020-08-12] MEDS ORDERED: dexAMETHasone 10 MG/ML VIAL ONE (09:54)
[2020-08-12] MEDS ORDERED: MIDAZOLAM HCL 2 MG/2 ML INJ ONE (09:54)
[2020-08-12] MEDS ORDERED: FENTANYL CITR 100 MCG/2 ML ONE (09:54)
[2020-08-12 10:00] LABS: Potassium 3.2 mmol/L (3.5-5.1)
[2020-08-12] MEDS ORDERED: EPHEDRINE SULF 50 MG/ML VIAL ONE (10:26)
[2020-08-12] MEDS ORDERED: ALBUMIN HUM 5% 250 ML IV ONE (10:36)
[2020-08-12] MEDS ORDERED: GLYCOPYRROLATE 0.2 MG/ML SYR ONE (10:50)
--- NOTE | 2020-08-12 11:46 | P.OP ---
Preoperative diagnosis: Ventral Abdominal wall hernias Postoperative diagnosis: Ventral Abdominal wall hernias Primary procedure: Laparoscopc Ventral Abdominal Wall Hernia Repair with Mesh Secondary procedure: Laparoscopic Adhesiolysis Anesthesia: GETA + Local Estimated blood loss: <10cc Specimen: None Findings: multiple small anterior midline abdominal wall hernias Complications: None Implants: 10cm x 15cm Bard Ventralite ST mesh with echo position Transferred to: Recovery Room Condition: Good
[2020-08-12] MEDS ORDERED: KETOROLAC 30 MG/ML INJ ONE (11:53)
[2020-08-12] MEDS: HYDROMORPHONE HCL 1 MG/ML INJ ONE ×2 (12:10→12:15)
--- NOTE | 2020-08-12 12:20 | OP ---
Date of Procedure: 08/12/2020 Surgeon: Candelario Resendiz MD, Preoperative Diagnosis: Ventral abdominal hernias. Postoperative Diagnosis: Ventral abdominal hernias. Procedure Performed: Laparoscopic ventral abdominal wall hernia repair with mesh. Secondary procedu re was laparoscopic adhesiolysis greater than 1 hour. Anesthesia: General endotracheal plus local with 0.25% Marcaine without epinephrine. Estimated Blood Loss: Less than 10 mL. Specimen: None. Findings: Multiple small anterior abdominal wall midline hernias containing portions of fat from ome ntum. This was incarcerated at this point requiring laparoscopic adhesiolysis and reduction. Complications: None. Implants: 10 cm x [address] mesh with Echo positioning system. Disposition: The patient was transferred recovery room in good condition. Procedure In Detail: After informed consent was obtained, the patient was brought to the operating r oom and prepped and draped in the usual sterile fashion. After adequate anesthesia was achieved, the left upper quadrant incision was made. A 5 mm 0-degree optical trocar was used to introduce the cam era into the abdomen without evidence of complication. Insufflation was obtained to 15 mmHg at this time. There was no injury to vital structures upon entry in to the abdomen. On inspection, there we re multiple adhesions throughout the entire abdomen, most significantly in the midline. There were m ultiple small ventral midline hernias with omentum contained within. An additional trocar was placed in the right upper quadrant. This was similarly anesthetized and sharply incised. A 5 mm trocar wa s introduced in the abdomen without evidence of complication under direct visualization. Laparoscopi c adhesiolysis was made at this point to reduce the omentum from the anterior abdominal wall reduced from the multiple small abdominal hernias. At this point, I reduced the omentum back to the normal a natomic position. Hemostasis was achieved with the LigaSure device. At this point, additional troca r was placed in the left lower quadrant. This was a 12 mm, which was placed under direct visualizati on without evidence of complication. At this point, I sized the mesh appropriately in the epigastric position where there were multiple small midline abdominal wall hernias. These could not adequately be sewn because there was more of a loose assortment and the tissue did not appear to have enough st rength at this layer to allow for laparoscopic closure due to the Sammarinese cheese appearance of some of the defects. At this point, a 10 cm x 15 cm mesh was sized appropriately with 5 cm of overlay and th e balloon deployment system was performed in the epigastric position. I then secured the mesh to the anterior abdominal wall using SorbaFix Tacker system. At this point, the balloon deployment system was removed through the trocar and found to be intact. I then used approximately 60 tacks in total t o secure the mesh to the anterior abdominal wall, which were all the absorbable fixation tacks. At t his point, the abdomen was inspected. Hemostasis was easily achieved. At this point, there was mini mal bleeding from the anterior abdominal wall. I then focused on the 12 mm trocar, removed this troc ar and closed the trocar site using a Andi-Marshall suture passer with a 0 Vicryl in an interrupted fashion. Good approximation of the tissues. I then removed the left upper quadrant 5 mm trocar and closed this in a similar fashion with a Andi-Marshall suture passer with a 0 Vicryl interrupted fa shion. Good approximation of tissues. The abdomen was completely desufflated under direct visualiza tion without evidence of complication. All remaining trocars removed. All skin incisions were copio usly irrigated and closed with 4-0 Monocryl in a running fashion. Dermabond was placed over top. e patient tolerated the procedure well without evidence of complication and transferred to PACU in good condition. All counts were cor rect at the end of the case. NIURKA/ANGELICA Voice ID: [id number] Report ID: [id number]
[2020-08-12] MEDS ORDERED: HYDROCODONE/APAP 7.5/325 MG TAB ONE (13:26)
[2020-08-12 14:12] VITALS: O2SAT 97
[2020-08-12 14:25] VITALS: BP 129/51; TEMP 97.1
== END 2020-08-12 14:00 | disposition home or self-care (01) ==
LOC: OR 08:38
PROVIDERS: ATTEND Surgery
PROC: 0DNW4ZZ Release Peritoneum, Percutaneous Endoscopic Approach (ICD-10-PCS; 2020-08-12)
PROC: 0WUF4JZ Supplement Abdominal Wall with Synthetic Substitute, Percutaneous Endoscopic Approach (ICD-10-PCS; principal; 2020-08-12 10:45)
DX: K43.6 Other and unspecified ventral hernia with obstruction, without gangrene (principal); K66.0 Peritoneal adhesions (postprocedural) (postinfection); Z20.828 Contact with and (suspected) exposure to other viral communicable diseases; F17.210 Nicotine dependence, cigarettes, uncomplicated; J44.9 Chronic obstructive pulmonary disease, unspecified; Z86.711 Personal history of pulmonary embolism; Z86.73 Personal history of transient ischemic attack (TIA), and cerebral infarction without residual deficits; I12.9 Hypertensive chronic kidney disease with stage 1 through stage 4 chronic kidney disease, or unspecified chronic kidney disease; N18.9 Chronic kidney disease, unspecified; Z95.5 Presence of coronary angioplasty implant and graft; I25.10 Atherosclerotic heart disease of native coronary artery without angina pectoris; K21.9 Gastro-esophageal reflux disease without esophagitis; H35.30 Unspecified macular degeneration
CPT/HCPCS: 80048; 36415; 49653; U0002; J2704; J2250; J3010; J1100; P9045; J1170; J3370; J7120; J2405

== ENCOUNTER 2021-01-22 08:04 | Day surgery (SDC) | payer OTHER ==
[2021-01-22] MEDS ORDERED: Ringers Lactate 1,000 ML IV ONE (08:47)
[2021-01-22] MEDS ORDERED: CEFTRIAXONE/SWI 1gm 1 GM/10 ML SYR IV ONE (09:00)
[2021-01-22] MEDS ORDERED: BUPIVACAINE 0.25% PF 30 ML VIAL ONE (11:01)
[2021-01-22] MEDS ORDERED: FENTANYL CITR 100 MCG/2 ML ONE (11:44)
[2021-01-22] MEDS ORDERED: LIDOCAINE 1% MPF 5 ML VIAL ONE (11:44)
[2021-01-22] MEDS ORDERED: propofoL 200 MG/20 ML VIAL IV ONE (11:44)
[2021-01-22] MEDS ORDERED: EPHEDRINE SULF 50 MG/ML VIAL ONE (12:10)
[2021-01-22] MEDS ORDERED: NS 0.9% VIAL 10 ML ONE (12:10)
[2021-01-22] MEDS ORDERED: dexAMETHasone 10 MG/ML VIAL ONE (12:13)
[2021-01-22] MEDS ORDERED: KETOROLAC 30 MG/ML INJ ONE (12:13)
[2021-01-22] MEDS ORDERED: ONDANSETRON 4 MG/2 ML VIAL ONE (12:17)
--- NOTE | 2021-01-22 12:37 | P.OP ---
Preoperative diagnosis: Dorsal RIGHT arm Hematoma Postoperative diagnosis: Dorsal RIGHT arm Hematoma Primary procedure: Incision and Drainage of RIGHT arm complex hematoma Anesthesia: GETA + Local Estimated blood loss: ~25cc hematoma Specimen: none Findings: multiloculated hematoma down to muscle Complications: None Transferred to: Recovery Room Condition: Good
[2021-01-22 13:01] VITALS: BP 149/65; TEMP 96.3; O2SAT 97
--- NOTE | 2021-01-22 13:09 | OP ---
Date of Procedure: 01/22/2021 Surgeon: Candelario Resendiz MD, Preoperative Diagnosis: Dorsal right arm hematoma. Postoperative Diagnosis: Dorsal right arm hematoma. Procedure Performed: Incision and drainage of right arm complex hematoma. Anesthesia: General endotracheal plus local with 0.25% Marcaine. Estimated Blood Loss: Less than 25 mL of the hematoma. No active blood loss. Specimen: None. Findings: Multiloculated hematoma extending down to the muscle on the extensor compartment. Complications: None. Disposition: The patient was transferred to recovery room in good condition. Procedure In Detail: After informed consent was obtained, the patient was prepped and draped in the usual sterile fashion after adequate anesthesia achieved. An incision was made over the right forearm area just distal to the elbow on the dorsal aspect ulnar side down to subcutaneous tissues. Electrocautery was used to dissect down to visualize a hematoma, which was multiloculated and well formed, very minimal fluid, component of this mostly solid at this point. This was broken up including some necrotic fat circumferentially around there, which was debrided sharply. All necrotic tissue and hematoma were evacuated at this point, extended all the way down to the fascia overlying the muscle on the extensor compartment. The area was copiously irrigated. Hemostasis was achieved with very minimal electrocautery. The area was copiously irrigated multiple times until completely clear and then closed with interrupted 3-0 nylon sutures in a simple interrupted fashion and a sterile dressing placed over top. The patient tolerated the procedure well without evidence of complication and transferred to PACU in good condition. All counts were correct at the end of the case. NIURKA/ANGELICA Voice ID: [id number] Report ID: [id number] DOROTHY
== END 2021-01-22 13:32 | disposition home or self-care (01) ==
LOC: OR 08:04
PROVIDERS: ATTEND Surgery
PROC: 0J9G0ZZ Drainage of Right Lower Arm Subcutaneous Tissue and Fascia, Open Approach (ICD-10-PCS; principal; 2021-01-22 10:15)
DX: S50.11XD Contusion of right forearm, subsequent encounter (principal); I96 Gangrene, not elsewhere classified; Z20.822 Contact with and (suspected) exposure to COVID-19
CPT/HCPCS: 10140; U0003; J2704; J3010; J1100; J0696; J7120; J2405

== ENCOUNTER 2021-09-07 09:37 | Day surgery (SDC) | payer OTHER ==
--- NOTE | 2021-09-06 12:13 | RAD REPORT ---
EXAM DESCRIPTION: Claudine Martines (2 Views)09/06/2021 11:47 am CLINICAL HISTORY: Preop for cardiac catheterization COMPARISON: 2019 FINDINGS: The lungs appear clear of acute infiltrate. The heart is mildly enlarged IMPRESSION: No acute abnormalities displayed
[2021-09-06 12:19] LABS: Absolute Lymphocytes (CBC) 2.1 K/uL (0.7-4.9); Lymphocytes % 26.5 % (15.3-44.8); MPV 10.4 fL (7.6-11.3); RBC Red Blood Cell Count 4.32 M/uL (3.86-4.86)
[2021-09-06 12:31] LABS: Potassium 3.4 mmol/L (3.5-5.1)
[2021-09-07] MEDS ORDERED: NA CHLORIDE 0.9% 500 ML ONE (09:43)
[2021-09-07] MEDS ORDERED: HEPA 1000U/500MLS 1,000 UNIT/500 ML BAG IV ONE (10:26)
[2021-09-07] MEDS ORDERED: FENTANYL CITR 100 MCG/2 ML ONE (10:30)
[2021-09-07] MEDS ORDERED: MIDAZOLAM HCL 2 MG/2 ML INJ ONE ×2 (10:30→10:58)
[2021-09-07] MEDS ORDERED: NA CHLORIDE 0.9% 0 ML ONE (10:31)
[2021-09-07] MEDS ORDERED: ATROPINE SULF 1 MG/10 ML SYR IV ONE (10:31)
[2021-09-07] MEDS ORDERED: FLUMAZENIL 0.1 MG/ML (5 mL VIAL) IV ONE (11:08)
[2021-09-07 11:09] VITALS: TEMP 97.9
--- NOTE | 2021-09-07 12:11 | OP ---
Date of Procedure: 09/07/2021 Surgeon: Timothy Bob MD Branch Chief: Emily Esparza. Procedures: Left heart catheterization, selective coronary arteriogram, angiography of the right com mon iliac artery. Indication: PAD, CAD, unstable angina. Ms. Dallas is 76. Has had bypass surgery in the past and her grafts actually closed. She has a completely occluded RCA by history. Has had a stent in the diago nal and LAD in the past. She has also had an endograft placed for abdominal aortic aneurysm that act ually extended beyond the renals. She does have no renal artery stenosis. Came in with unstable ang santos. Procedure In Detail: Brought to the laborer petroleum refinery today, prepped and draped in routine sterile fashion. Given Versed and fentanyl for sedation. A 6-Divehi sheath introduced in the right common femoral art yamilex successfully using the Seldinger technique and 10 cc of Xylocaine. Angio-Seal was used to close the case. Angiography of the common iliac artery was done because of difficulty in access with a wir e and that found a severe stenosis in the right common iliac artery, ostium right at the beginning of the endograft stents. We were able to get through with a JR4 catheter that revealed 100% occlusion of the ostial RCA. The RCA distally had collaterals from the circ and LAD. A JL4 catheter was inser gia and there was some dampening in the left main with about a 50% stenosis in the ostium of the left main. There was a 50% in-stent restenosis in the LAD, proximal and mid. There was 100% occlusion o f a diagonal stent. The circ system was normal. Both circ and LAD gave collateral to the PDA, poste rolateral off the RCA. There were no complications. The patient tolerated the procedure well. Anesthesia: Total conscious sedation was 60 minutes. Blood Loss: 5 mL. Postoperative Diagnosis: Severe coronary artery disease and peripheral arterial disease. We will continue medical therapy for the coronaries. I am going to increase her Ranexa from 500 mg t o 1000 mg. I am going to increase her metoprolol to 100 b.i.d. I am going to probably have her do a Lexiscan sometime down the road before we make further decisions regarding possible bypass surgery. Her iliac needs to be stented eventually down the road, but should not have any claudication and we will discuss that further down the road. She will be in the hospital for 2 hours of bedrest, go home , come to see me in 2 weeks. CONTRERAS/ANGELICA Voice ID: [id number] Report ID: [id number]
[2021-09-07 12:35] VITALS: O2SAT 97
[2021-09-07 13:13] VITALS: BP 154/62
== END 2021-09-07 13:29 | disposition home or self-care (01) ==
LOC: CCL 09:37
DX: I25.110 Atherosclerotic heart disease of native coronary artery with unstable angina pectoris (principal); I25.82 Chronic total occlusion of coronary artery; T82.855A Stenosis of coronary artery stent, initial encounter; I73.9 Peripheral vascular disease, unspecified; I71.4 Abdominal aortic aneurysm, without rupture; I10 Essential (primary) hypertension; Z95.1 Presence of aortocoronary bypass graft; Z88.1 Allergy status to other antibiotic agents; Z88.2 Allergy status to sulfonamides; Z88.3 Allergy status to other anti-infective agents; Z88.6 Allergy status to analgesic agent; Z20.822 Contact with and (suspected) exposure to COVID-19; Z82.49 Family history of ischemic heart disease and other diseases of the circulatory system
CPT/HCPCS: 85025; 80048; 36415; 85610; 85730; 71046; 36200; 75630; 93454; U0003; C1893 ×2; C1760 ×2; J2250 ×2; J3010; J7040; J1644; J0583

== ENCOUNTER 2022-01-11 08:27 | Day surgery (SDC) | payer OTHER ==
[2022-01-10 11:21] LABS: Hematocrit 37.5 % (36.0-45.0); Lymphocytes % 26.3 % (15.3-44.8); MPV 9.6 fL (7.6-11.3); RBC Red Blood Cell Count 4.29 M/uL (3.86-4.86)
[2022-01-10 11:26] LABS: Protime INR 0.99
[2022-01-10 11:35] LABS: Potassium 4.1 mmol/L (3.5-5.1)
--- NOTE | 2022-01-10 13:44 | EKG ---
Test Date: 2022-01-10 Test Time: 10:03:26 Health Care Attorney: HECTOR MEASUREMENT RESULTS: Intervals: Rate: 61 GA: 184 QRSD: 88 QT: 462 QTc: 465 [place]: P: 40 GA: 184 QRS: 41 T: 102 INTERPRETIVE STATEMENTS: Normal sinus rhythm ST & T wave abnormality, consider lateral ischemia Abnormal ECG Compared to ECG 01/16/2020 12:27:55 Possible ischemia now present ST (T wave) deviation still present Electronically Signed On 01-10-22 13:44:03 CDT by Les Laboy
[~2022-01-11 08:27] MED LIST changes: +NA CHLORIDE 0.9% 500 ML ONE; -VANCOMYCIN/NS 1 gm 1 GM/250 ML BAG IV SCH
[2022-01-11] MEDS ORDERED: MIDAZOLAM HCL 2 MG/2 ML INJ ONE ×3 (09:05→10:09)
[2022-01-11] MEDS ORDERED: FENTANYL CITR 100 MCG/2 ML ONE (09:05)
[2022-01-11] MEDS ORDERED: ATROPINE SULF 1 MG/10 ML SYR IV ONE (09:08)
[2022-01-11] MEDS ORDERED: LIDOCAINE 1% MPF 30 ML VIAL ONE (10:07)
[2022-01-11 11:32] VITALS: TEMP 97
[2022-01-11] MEDS ORDERED: ACETAMINOPHEN 325 MG TABLET ONE (11:32)
--- NOTE | 2022-01-11 12:36 | OP ---
Surgeon: Timothy Bob MD Sales Contractor: Ms. Bianka Mackay. She was admitted to the labor representative. She underwent bilateral selective carotid angiogram and a right co mmon femoral artery angiogram. Indication: Severe cerebrovascular accident, abnormal carotid Doppler bilaterally as well as severe peripheral arterial disease. Procedure In Detail: She was in the labor representative prepped and draped in the routine sterile fashion. Giv en Versed and fentanyl for sedation. A 6-Turkish sheath introduced in the right common femoral artery . Angiography in the common femoral artery region was obtained secondary to the severity of cannulat ing the vessel that showed severe disease with 70% to 80% diffuse disease in the right common femoral artery with a patent right common iliac artery stent. A JR4 catheter was used to cannulate the righ t common carotid artery. A 3DRC catheter was used to cannulate the left common carotid artery. Leah ography showed 60% to 70% bilateral ICA, 70% ostial right subclavian artery stenosis, severely diffus e disease in the right vertebral artery. There were no complications. Blood Loss: 5 mL. Postoperative Diagnosis: Severe CVD, severe PAD. As far as PAD is concerned, we will continue medic al therapy until symptoms develop. As far as her cerebrovascular disease, I am going to have the cat m reviewed further by vascular surgeon before I make any further decisions. Meanwhile, continue pres ent regimen. We held pressure for hemostasis on the groin because of severity of the disease in the right common femoral artery. The patient will go home today after 6 hours of bedrest. I will see he r in the office in 2 weeks and I will make further plans regarding her carotid down the road. Anesthesia: Total conscious sedation was 60 minutes. NB/MODL Voice ID: [id number] Report ID: [id number]
[2022-01-11 15:02] VITALS: BP 108/55; O2SAT 98
== END 2022-01-11 16:06 | disposition home or self-care (01) ==
LOC: CCL 08:27
DX: I65.23 Occlusion and stenosis of bilateral carotid arteries (principal); I65.01 Occlusion and stenosis of right vertebral artery; I70.8 Atherosclerosis of other arteries; I70.201 Unspecified atherosclerosis of native arteries of extremities, right leg; I25.10 Atherosclerotic heart disease of native coronary artery without angina pectoris; I10 Essential (primary) hypertension; E78.5 Hyperlipidemia, unspecified; Z87.891 Personal history of nicotine dependence; Z95.1 Presence of aortocoronary bypass graft; Z95.820 Peripheral vascular angioplasty status with implants and grafts; Z79.82 Long term (current) use of aspirin; Z79.899 Other long term (current) drug therapy; Z88.0 Allergy status to penicillin; Z88.1 Allergy status to other antibiotic agents; Z88.2 Allergy status to sulfonamides; Z88.5 Allergy status to narcotic agent; Z20.822 Contact with and (suspected) exposure to COVID-19; Z82.49 Family history of ischemic heart disease and other diseases of the circulatory system
CPT/HCPCS: 93005; 85025; 80048; 36415; 85610; 85730; 75774; 36222; U0003; C1893; J2250 ×2; J3010; J7040; 75710

== ENCOUNTER → 2023-02-03 | Day surgery (SDC) | payer OTHER ==
[2023-02-01 10:50] LABS: Absolute Lymphocytes (CBC) 1.8 K/uL (0.7-4.9); Hematocrit 38.3 % (36.0-45.0); Lymphocytes % 22.8 % (15.3-44.8); MCV 87.5 fL (80-100); MPV 9.3 fL (7.6-11.3); RBC Red Blood Cell Count 4.38 M/uL (3.86-4.86)
[2023-02-01 10:54] LABS: Protime INR 0.98
--- NOTE | 2023-02-01 11:02 | RAD REPORT ---
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 COMPARISON: Chest Pa And Lat (2 Views) dated 09/06/2021; Chest Pa And Lat (2 Views) dated 01/16/2020; Chest Single View dated 11/11/2018; Chest Pa And Lat (2 Views) dated 01/13/2018 TECHNIQUE: PA and lateral views of the chest were obtained. FINDINGS: The lungs are hyperexpanded compatible with COPD. The heart is upper limit of normal in si ze. No fracture or aggressive bony process. IMPRESSION: COPD without acute process identified. The USPSTF recommends annual screening for lung cancer with low-dose CT (LDCT) in adults aged 50 to 80 years who have a 20 pack-year smoking history and currently smoke or have quit within the past 15 years.
[2023-02-01 11:08] LABS: Potassium 3.8 mEq/L (3.5-5.1)
--- NOTE | 2023-02-01 14:32 | EKG ---
Test Date: 2023-02-01 Test Time: 10:27:17 Artillery Maintenance Supervisor: ANA MEASUREMENT RESULTS: Intervals: Rate: 70 DE: 170 QRSD: 92 QT: 380 QTc: 410 [place]: P: 51 DE: 170 QRS: 57 T: 230 INTERPRETIVE STATEMENTS: Normal sinus rhythm ST & T wave abnormality, consider lateral ischemia Abnormal ECG Compared to ECG 01/10/2022 10:03:26 No significant changes Electronically Signed On 02-01-23 14:32:03 CDT by Les Laboy
[~2023-02-03] MED LIST changes: +CLOPIDOGREL 75 MG TABLET ONE; +FENTANYL CITR 100 MCG/2 ML ONE; +HEPA 1000U/500MLS 2,000 UNIT/1,000 ML BAG IV ONE; +HEPARIN 10,000 UNIT/10 ML VIAL IV ONE; +HEPARIN 5000 UNIT/ML 1 ML VIAL ONE; +LIDOCAINE 1% 20 ML MDV ONE; +MIDAZOLAM HCL 2 MG/2 ML INJ ONE; +NITROGLYCERIN 0.4 MG/TAB SL ONE; +VERAPAMIL HCL 10 MG/4 ML VIAL IV ONE
[2023-02-03 17:02] VITALS: BP 163/87; O2SAT 99
--- NOTE | 2023-02-03 21:44 | OP ---
Date of Procedure: 02/03/2023 Surgeon: STEFANY MC Procedures Performed: 1.Selective coronary angiogram. 2.Left heart catheterization. 3.Peripheral angiogram. Indication: 1.Chest pain with abnormal stress test and coronary artery disease. 2.Significant peripheral vascular disease with claudication. Access: Right radial artery 6-Ethiopian closed with TR band. Complications: None. Bleeding: Less than 20 mL. Anesthesia: Total sedation time was 45 minutes. Used fentanyl and Versed. Description Of Procedure: After risks, benefits, and alternatives were explained, patient agreed to procedure and signed informed consent. Patient was brought into the cardiac catheterization laborato , prepped and draped in usual sterile fashion. Then, I accessed right radial artery using [employer] c micropuncture kit to place 6-Ethiopian Slender sheath and took 5-Ethiopian [place]alimar 4.0 catheter into the ao rtic root, engaged the left main and the right coronary artery, took standard views and the catheter was pushed over the wire into the LV, measured LVEDP. Pullback not record any gradient. Then, I exc hanged for 4-Ethiopian long pigtail and advanced it into the distal aorta, performed distal aortogram an d runoff and then removed the catheter and sheath and placed TR band with good hemostasis. Findings: 1.Left main: Diffuse 40% to 50% stenosis. 2.LAD: Proximal 80% to 90% stenosis. There is apparently a stent with significant ISR and the diag onal 1 branch is totally occluded. There is a stent and dense totally occluded. Septal branches lorie ears to be normal. Mid LAD has 40% stenosis in at least 2 areas and even distally, 40% to 50% also f ocal multiple areas. The LAD and the septal branches gave collaterals, filled the RCA all the way ba ck up. 3.Left circumflex: It is of moderate size with ostial 60% and luminal irregularities. 4.RCA: It is totally occluded ostially 100% EDUCATIONAL RECRUITER. There are excellent collaterals from the LAD comi ng to the PDA filling the RCA all the way back up. 5.LVEDP normal at 5 mmHg. Peripheral Angiogram: 1.Patent distal aorta. 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 Then, right common femoral artery has diffuse 70% stenosis. The SFA has multiple areas of 50% to 60% stenosis and there is a mid segme nt that is long that has 90% stenosis. Below the knee, the flow is very sluggish due to the signific ant disease proximally. I saw 3 vessels, but could not fill the vessel very well to get a runoff com plete. 3.The left common iliac, external iliac, and common femoral have diffuse 60% to 70% stenosis. Profu nda is in both sites left and right and then the left SFA is with diffuse 40% stenosis below the knee . There is a very slow flow and I was not able to pacify it due to the limit of the contrast load. Conclusion: 1.Severe multivessel coronary artery disease including LAD and RCA. RCA is getting collateralized f rom the LAD. 2.Moderate left circumflex disease. 3.Severe peripheral vascular disease, especially on the right SFA. Plan: 1.Plan to re-assess her in [facility] where we will assess the left main with IVUS. If this is no t significant, then we will plan for a shockwave and then PCI of the proximal LAD. If the left main is severe, then we will plan for bypass surgery. 2.After the cardiac intervention, we will need to work on the right SFA and the right common femoral artery should be done at a separate occasion due to the chronic kidn ey disease. SR/MODL Voice ID: [id number] Report ID: [id number]
--- NOTE | 2023-02-06 12:10 | EKG ---
Test Date: 2023-02-03 Test Time: 15:35:09 Housekeeping Aid: GATITO MEASUREMENT RESULTS: Intervals: Rate: 71 HI: 176 QRSD: 96 QT: 426 QTc: 462 [place]: P: 61 HI: 176 QRS: 50 T: 136 INTERPRETIVE STATEMENTS: Normal sinus rhythm ST & T wave abnormality, consider inferolateral ischemia Abnormal ECG Compared to ECG 02/01/2023 10:27:17 No significant changes Electronically Signed On 02-06-23 12:01:32 CDT by Timothy Bob
== END ==
LOC: CCL 10:30
PROVIDERS: ATTEND Internal Medicine
DX: I25.10 Atherosclerotic heart disease of native coronary artery without angina pectoris (principal); I25.82 Chronic total occlusion of coronary artery; I70.213 Atherosclerosis of native arteries of extremities with intermittent claudication, bilateral legs; I65.29 Occlusion and stenosis of unspecified carotid artery; I71.40 Abdominal aortic aneurysm, without rupture, unspecified; I35.1 Nonrheumatic aortic (valve) insufficiency; I10 Essential (primary) hypertension; E78.5 Hyperlipidemia, unspecified; Z95.5 Presence of coronary angioplasty implant and graft; Z87.891 Personal history of nicotine dependence; Z79.02 Long term (current) use of antithrombotics/antiplatelets; Z79.82 Long term (current) use of aspirin; Z79.899 Other long term (current) drug therapy; Z88.2 Allergy status to sulfonamides; Z88.0 Allergy status to penicillin; Z88.1 Allergy status to other antibiotic agents; Z88.3 Allergy status to other anti-infective agents; Z88.5 Allergy status to narcotic agent; Z91.09 Other allergy status, other than to drugs and biological substances; Z82.49 Family history of ischemic heart disease and other diseases of the circulatory system
CPT/HCPCS: 93005 ×2; 85025; 80048; 36415; 85610; 85730; 71046; 93458 ×2; 76937; C1893; Q9966; J1644; J2001; J2250; J3010; J7040; 75630

== ENCOUNTER 2023-08-16 11:02 | Day surgery (SDC) | payer OTHER ==
--- NOTE | 2023-08-08 13:20 | RAD REPORT ---
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 History of COPD. Prior open-heart surgery COMPARISON: Chest Pa And Lat (2 Views) dated 02/01/2023; Chest Pa And Lat (2 Views) dated 09/06/2021; C hest Pa And Lat (2 Views) dated 01/16/2020; Chest Single View dated 11/11/2018 TECHNIQUE: PA and lateral views of the chest were obtained. FINDINGS: The lungs are clear. Heart size is normal and central vasculature is within normal limits, apart from sequelae of median sternotomy and CABG. No pleural effusion or pneumothorax seen. No acut e bony finding noted. IMPRESSION: No acute cardiopulmonary process.
[2023-08-08 13:22] LABS: Hematocrit 43.5 % (36.0-45.0); Lymphocytes % 25.6 % (15.3-44.8); MCV 87.7 fL (80-100); MPV 9.2 fL (7.6-11.3); Platelets 205 thou/uL (152-406); RBC Red Blood Cell Count 4.95 M/uL (3.86-4.86)
[2023-08-08 13:24] LABS: Protime INR 1.06
[2023-08-08 13:56] LABS: Potassium 3.5 mEq/L (3.5-5.1)
--- NOTE | 2023-08-09 13:05 | EKG ---
Test Date: 2023-08-08 Test Time: 13:57:46 Client Care Specialist: ANA MEASUREMENT RESULTS: Intervals: Rate: 54 MA: 188 QRSD: 104 QT: 478 QTc: 453 [place]: P: 82 MA: 188 QRS: 72 T: 191 INTERPRETIVE STATEMENTS: Sinus bradycardia ST & T wave abnormality, consider inferolateral ischemia Abnormal ECG Compared to ECG 02/03/2023 15:35:09 Sinus rhythm no longer present ST (T wave) deviation still present Possible ischemia still present Electronically Signed On 08-09-23 13:03:56 SENIOR CARE SPECIALIST by Les Laboy
[2023-08-16] MEDS ORDERED: HEPA 1000U/500MLS 2,000 UNIT/1,000 ML BAG IV ONE (11:06)
[2023-08-16] MEDS ORDERED: LIDOCAINE 1% 20 ML MDV ONE (11:06)
[2023-08-16] MEDS ORDERED: ATROPINE SULF 1 MG/10 ML SYR IV ONE (11:07)
[2023-08-16] MEDS ORDERED: HEPARIN 10,000 UNIT/10 ML VIAL IV ONE (11:07)
[2023-08-16] MEDS ORDERED: MIDAZOLAM HCL 2 MG/2 ML INJ ONE (11:07)
[2023-08-16] MEDS ORDERED: FENTANYL CITR 100 MCG/2 ML ONE (11:07)
[2023-08-16] MEDS ORDERED: NA CHLORIDE 0.9% 500 ML ONE (11:36)
[2023-08-16] MEDS ORDERED: NITROGLYCERIN/D5W 50 MG/250 ML BTL IV ONE (11:39)
[2023-08-16 14:47] VITALS: TEMP 98; O2SAT 98
[2023-08-16 14:57] VITALS: BP 145/68
== END 2023-08-16 12:53 | disposition home or self-care (01) ==
LOC: CCL 11:02
PROVIDERS: ATTEND Internal Medicine
PROC: 047K3ZZ Dilation of Right Femoral Artery, Percutaneous Approach (ICD-10-PCS; principal; 2023-08-16)
DX: I70.223 Atherosclerosis of native arteries of extremities with rest pain, bilateral legs (principal); Z53.8 Procedure and treatment not carried out for other reasons; I25.10 Atherosclerotic heart disease of native coronary artery without angina pectoris; I65.23 Occlusion and stenosis of bilateral carotid arteries; I35.1 Nonrheumatic aortic (valve) insufficiency; I12.9 Hypertensive chronic kidney disease with stage 1 through stage 4 chronic kidney disease, or unspecified chronic kidney disease; N18.2 Chronic kidney disease, stage 2 (mild); E78.5 Hyperlipidemia, unspecified; K21.9 Gastro-esophageal reflux disease without esophagitis; Z87.891 Personal history of nicotine dependence; Z79.82 Long term (current) use of aspirin; Z79.899 Other long term (current) drug therapy; Z88.0 Allergy status to penicillin; Z88.2 Allergy status to sulfonamides; Z88.8 Allergy status to other drugs, medicaments and biological substances; Z91.09 Other allergy status, other than to drugs and biological substances; Z82.49 Family history of ischemic heart disease and other diseases of the circulatory system
CPT/HCPCS: 36415; 71046; 80048; 85025; 85610; 85730; 93005; J0461; J2001; J2250; J3010; J7040